=== PATIENT | male | born 1960 | race Caucasian/White ===

== ENCOUNTER 2024-03-03 17:42 | Emergency (ER) | payer OTHER, SELFPAY ==
[2024-03-03] VITALS (7 sets, daily range): BP systolic 105–167; BP diastolic 76–98; PULSE 74–85; RESP 19–21; TEMP 36.3; O2SAT 97–99; BMI 23.0
--- NOTE | 2024-03-03 17:58 | ED_ITS ---
HPI - Extremity Injury (Lower) 2 General: Chief Complaint: Extremity Injury, Lower Stated Complaint: Right hip pain Time Seen by Provider: 03/03/24 17:51 History of Present Illness: 63-year-old male patient comes in today with complaints of posterior rib pain on the right, low back pain, and right hip pain. Patient had fallen on Friday while working with his chickens. Patient had landed on a trough. Patient has had increasing pain over the last 2 to 3 days. Review of Systems 2 General: Reports: 10 or more systems reviewed and unremarkable except in HPI and below Musc: Reports: back pain Physical Exam 2 Const: COMMON NORMALS: alert HENMT: COMMON NORMALS: normocephalic HEAD & SCALP: normocephalic Neck/C-Spine: COMMON NORMALS: full ROM Chest: CHEST: Yes tenderness (Posterior right) Resp: COMMON NORMALS: normal respiratory effort and clear to auscultation bilaterally AUSCULTATION: clear to auscultation bilaterally Cardio: COMMON NORMALS: regular rate and regular rhythm RATE: regular rate RHYTHM: regular rhythm GI: COMMON NORMALS: Soft to palpation and non-tender PALPATION: Yes Soft to palpation : BLADDER/KIDNEY EXAM: Yes CVA tenderness on the right Back/Pelvis: GENERAL BACK: Yes CVA tenderness LUMBAR SPINE/LOWER BACK: Yes lumbar spinal tenderness and Yes other soft tissue findings (Bruising right paraspinous, central lower lumbar) Extremity: NARRATIVE EXTREMITY EXAM: Decreased range of motion of the right hip due to pain Neuro: SENSORIUM/ORIENTATION: Yes alert Skin: COMMON NORMALS: turgor normal GENERAL SKIN EXAM: turgor normal Course 2 Vital Signs: Vital signs: Vital Signs Temperature 97.4 F L 03/03/24 17:58 Pulse Rate 78 03/03/24 20:30 Respiratory Rate 19 H 03/03/24 18:28 Blood Pressure 161/98 03/03/24 20:30 Pulse Oximetry 99 03/03/24 20:30 Oxygen Delivery Me thod Room Air 03/03/24 20:30 MDM - Extremity Injury (Lower) Medical Decision Making 63-year-old male patient comes in today for complaints of right-sided lower back pain, right lower lumbar pain, secondary to a fall on Friday. Patient has had increasing pain and difficulty with ambulation. Patient appears nontoxic. Patient appears moderate to severe pain. Patient has increased pain with movement. Differential diagnosis includes contusion, fracture, dislocation, sprain, vertebral fracture, lumbar radiculopathy. CT of the chest abdomen and pelvis noted fractures of the 10th and 12th rib on the right side, and a fracture of the second lumbar vertebra transverse process. Reviewed exam with patient with recommendation for treatment and follow-up. Patient reported understanding and agreed to plan. Lab Data 03/03/24 18:12 03/03/24 18:12 Radiology Impressions Chest/Abdomen/Pelvis CT 03/03/24 18:01 IMPRESSION: 1. There are acute to subacute appearing fractures through the right 10th and 12th ribs with mild adjacent soft tissue edema. 2. Small hiatal hernia. There is mucosal thickening of the distal esophagus consistent with esophagitis. Follow-up to exclude neoplasm as clinically warranted. IMPRESSION: 1. There are acute to subacute appearing fractures through the right 10th and 12th ribs with mild adjacent soft tissue edema. 2. There is a nondisplaced fracture through the right L2 transverse process with mild adjacent soft tissue edema. 3. Urinary bladder wall thickening could be due to cystitis or lack of distention. 4. Mild edema is present in the subcutaneous soft tissues surrounding the right pelvis and upper thigh. Laboratory Results WBC 8.01 10^3/uL (3.29-11.43) 03/03/24 18:12 RBC 4.25 10^6/uL (3.85-5.65) 03/03/24 18:12 Hgb 16.40 g/dL (11.27-16.99) 03/03/24 18:12 Hct 44.5 % (37-53) 03/03/24 18:12 MCV 104.7 fl (82-101) H 03/03/24 18:12 MCH 38.6 pg (27-33) H 03/03/24 18:12 MCHC 36.9 g/dL (30-55) 03/03/24 18:12 RDW 11.9 % (12.1-15.1) L 03/03/24 18:12 Plt Count 150 10^3/cmm (157-399) L 03/03/24 18:12 MPV 9.8 fL (7.4-10.4) 03/03/24 18:12 Neut % (Auto) 77.8 % 03/03/24 18:12 Lymph % (Auto) 10.1 % 03/03/24 18:12 [place] % (Auto) 11.2 % 03/03/24 18:12 Eos % (Auto) 0.0 % 03/03/24 18:12 Baso % (Auto) 0.4 % 03/03/24 18:12 Neut # (Auto) 6.23 10^3/uL (1.8-7.7) 03/03/24 18:12 Lymph # (Auto) 0.8 10^3/uL (0.8-4.8) 03/03/24 18:12 [place] # (Auto) 0.9 10^3/uL (0.2-0.9) 03/03/24 18:12 Eos # (Auto) 0.0 10^3/uL (0.0-0.8) 03/03/24 18:12 Baso # (Auto) 0.0 10^3/uL (0.0-0.1) 03/03/24 18:12 Nucleated RBC % (auto) 0 % 03/03/24 18:12 Nucleated RBCs # 0.0 /100WBC 03/03/24 18:12 Sodium 136 mmol/L (136-145) 03/03/24 18:12 Potassium 3.3 mmol/L (3.5-5.1) L 03/03/24 18:12 Chloride 97 mmol/L (98-107) L 03/03/24 18:12 Carbon Dioxide 18 mmol/L (22-29) L 03/03/24 18:12 Anion Gap 24.3 (5-19) H 03/03/24 18:12 BUN 5 mg/dL (8-23) L 03/03/24 18:12 Creatinine 0.5 mg/dL (0.7-1.2) L 03/03/24 18:12 GFR Calculation 167.9 mL/min (90-130) H 03/03/24 18:12 Glucose 133 mg/dL (65-115) H 03/03/24 18:12 Calculated Osmolality 281 mOsm/kg (285-295) L 03/03/24 18:12 Calcium 9.9 mg/dL (8.5-10.5) 03/03/24 18:12 Total Bilirubin 1.4 mg/dL (0.15-1.2) H 03/03/24 18:12 AST 44 U/L (0-40) H 03/03/24 18:12 ALT 38 U/L (0-41) 03/03/24 18:12 Alkaline Phosphatase 63 U/L (40-130) 03/03/24 18:12 Total Protein 8.3 g/dL (6.6-8.7) 03/03/24 18:12 Albumin 4.4 g/dL (3.5-5.2) 03/03/24 18:12 Globulin 3.9 g/dL (1.3-4.6) 03/03/24 18:12 All radiology interpretation(s) finalized by discharge Discharge Plan Discharge Patient Disposition: Home Clinical Impression: Fall from slip, trip, or stumble Qualifiers: Encounter type: initial encounter Qualified Code(s): W01.0XXA - Fall on same level from slipping, tripping and stumbling without subsequent striking against object, initial encounter Fracture, ribs Qualifiers: Encounter type: initial encounter Fracture type: closed Laterality: right Q ualified Code(s): S22.41XA - Multiple fractures of ribs, right side, initial encounter for closed fracture Closed fracture of transverse process of lumbar vertebra Qualifiers: Encounter type: initial encounter Qualified Code(s): S32.009A - Unspecified fracture of unspecified lumbar vertebra, initial encounter for closed fracture Condition: Stable Prescriptions: New hydrocodone-acetaminophen 5-325 mg tablet 1 tab PO Q6H PRN (Reason: pain) Qty: 12 0RF Discharge Orders: Discharge ED (Routine); Ordered 03/03/24 Ordered By: Umesh Shipman Discharge Diet: Usual diet Discharge Activity: Increase activity as tolerated Patient Instructions: Opioid Safety, Pain Management Activity Restrictions/Additional Instructions: Activity as tolerated. Use acetaminophen and ibuprofen to help control pain. Use ice and heat for further pain relief. Use hydrocodone for severe pain. Follow-up with primary care in 3 to 5 days for recheck. Return to ED for new concerns such as high fever, or increased shortness of breath. Coding Level of Care Code ED [employer] Member for Daniel Rubi
--- NOTE | 2024-03-03 18:01 | CTR_ITS ---
PROCEDURE INFORMATION: Exam: CT Chest With Contrast; Diagnostic Exam date and time: 03/03/2024 7:08 PM Age: 63 years old Clinical indication: Patient HX: Right hip pain, ; additional info: Fall injury x2days, posterior bruising, no prior imaging TECHNIQUE: Imaging protocol: Diagnostic computed tomography of the chest with contrast. Radiation optimization: All CT scans at this facility use at least one of these dose optimization techniques: automated exposure control; mA and/or kV adjustment per patient size (includes targeted exams where dose is matched to clinical indication); or iterative reconstruction. Contrast material: OMNI 350; Contrast volume: 100 ml; Contrast route: INTRAVENOUS (IV); COMPARISON: No relevant prior studies available. RADIATION DOSE METRICS: Total DLP (mGy-cm): 228 FINDINGS: Lungs: Unremarkable. No consolidation. No masses. Pleural spaces: Unremarkable. No pneumothorax. No pleural effusion. Heart: Unremarkable. No cardiomegaly. No pericardial effusion. Lymph nodes: Unremarkable. No enlarged lymph nodes. Vasculature: Unremarkable. No aortic aneurysm. Diaphragm: Small hiatal hernia. There is mucosal thickening of the distal esophagus. Bones/joints: There is an acute to subacute appearing nondisplaced fracture of the lateral aspect of the right 10th rib with mild adjacent soft tissue edema. Acute to subacute appearing mildly displaced fracture through the posterior right 12th rib with mild adjacent soft tissue edema. Old/healed fractures through the lateral aspects of the right 6th and 7th ribs. Minimal chronic appearing anterior compression deformity of the T2 superior endplate. Soft tissues: See Bones/joints finding. PROCEDURE INFORMATION: Exam: CT Abdomen And Pelvis With Contrast Exam date and time: 03/03/2024 7:08 PM Age: 63 years old Clinical indication: Patient HX: Right hip pain, ; additional info: Fall injury x2days, posterior bruising, no prior imaging TECHNIQUE: Imaging protocol: Computed tomography of the abdomen and pelvis with contrast. Radiation optimization: All CT scans at this facility use at least one of these dose optimization techniques: automated exposure control; mA and/or kV adjustment per patient size (includes targeted exams where dose is matched to clinical indication); or iterative reconstruction. Contrast material: OMNI 350; Contrast volume: 100 ml; Contrast route: INTRAVENOUS (IV); COMPARISON: No relevant prior studies available. RADIATION DOSE METRICS: Total DLP (mGy-cm): 277 FINDINGS: Liver: Normal. No mass. Gallbladder and biliary ducts: Normal. No calcified stones. No ductal dilation. Pancreas: Normal. No ductal dilation. Spleen: Normal. No splenomegaly. Adrenal glands: Normal. No mass. Kidneys and ureters: Normal. No hydronephrosis. Stomach and bowel: Unremarkable. No obstruction. No mucosal thickening. Appendix: No evidence of appendicitis. Intraperitoneal space: Unremarkable. No free air. No significant fluid collection. Vasculature: Unremarkable. No abdominal aortic aneurysm. Lymph nodes: Unremarkable. No enlarged lymph nodes. Urinary bladder: Urinary bladder wall thickening could be due to cystitis or lack of distention. Reproductive: There are calcifications in the prostate gland.Prostate gland indents the base of the bladder consistent with median lobe enlargement. Bones/joints: There is an acute to subacute appearing nondisplaced fracture of the lateral aspect of the right 10th rib with mild adjacent soft tissue edema. Acute to subacute appearing mildly displaced fracture through the posterior right 12th rib with mild adjacent soft tissue edema. There is a nondisplaced acute fracture through the right L2 transverse process with mild adjacent soft tissue edema. Soft tissues: There is mild edema in the subcutaneous soft tissues surrounding the right pelvis and upper thigh. CT/CT chest abdpel w/*[id number] IMPRESSION: 1. There are acute to subacute appearing fractures through the right 10th and 12th ribs with mild adjacent soft tissue edema. 2. Small hiatal hernia. There is mucosal thickening of the distal esophagus consistent with esophagitis. Follow-up to exclude neoplasm as clinically warranted. IMPRESSION: 1. There are acute to subacute appearing fractures through the right 10th and 12th ribs with mild adjacent soft tissue edema. 2. There is a nondisplaced fracture through the right L2 transverse process with mild adjacent soft tissue edema. 3. Urinary bladder wall thickening could be due to cystitis or lack of distention. 4. Mild edema is present in the subcutaneous soft tissues surrounding the right pelvis and upper thigh.
[2024-03-03] MEDS: ondansetron 2 mg/ML SDV 2 mL 4 MG IVP (18:19)
[2024-03-03 18:20] LABS: Basophils % 0.4 %; Hematocrit 44.5 % (37-53); Lymphocytes # 0.8 10^3/uL (0.8-4.8); Lymphocytes % 10.1 %; Mean Corpuscular HGB Conc 36.9 g/dL (30-55); Mean Corpuscular Hemoglobin 38.6 pg (27-33); Mean Corpuscular Volume 104.7 fl (82-101); Mean Platelet Volume 9.8 fL (7.4-10.4); Monocytes # 0.9 10^3/uL (0.2-0.9); Monocytes % 11.2 %; Neutrophils # 6.23 10^3/uL (1.8-7.7); Neutrophils % 77.8 %; Nucleated Red Blood Cells % 0 %; Platelet Count 150 10^3/cmm (157-399); Red Blood Count 4.25 10^6/uL (3.85-5.65); Red Cell Distribution Width 11.9 % (12.1-15.1); White Blood Count 8.01 10^3/uL (3.29-11.43)
[2024-03-03] MEDS: morphine 4 mg/mL SDV 1 mL IVP (18:21)
[2024-03-03 18:35] LABS: Alanine Aminotransferase 38 U/L (0-41); Albumin Level 4.4 g/dL (3.5-5.2); Alkaline Phosphatase 63 U/L (40-130); Blood Urea Nitrogen 5 mg/dL (8-23); Calcium 9.9 mg/dL (8.5-10.5); Carbon Dioxide 18 mmol/L (22-29); Chloride 97 mmol/L (98-107); Creatinine Clr Calc Pharmacy 123.4712; Globulin 3.9 g/dL (1.3-4.6); Glomerular Filtration Rate 167.9 mL/min (90-130); Glucose 133 mg/dL (65-115); Osmolality Calculated 281 mOsm/kg (285-295); Sodium 136 mmol/L (136-145); Total Bilirubin 1.4 mg/dL (0.15-1.2); Total Protein 8.3 g/dL (6.6-8.7)
[2024-03-03 18:39] LABS: Anion Gap 24.3 (5-19); Aspartate Amino Transferase 44 U/L (0-40); Potassium 3.3 mmol/L (3.5-5.1)
[2024-03-03] MEDS: iohexol 350 mg/mL 500 mL Btl (per mL) IV (19:18)
[2024-03-03] MEDS: lactated ringers 1,000 ML 999 ML IV (19:24)
[2024-03-03] MEDS: HYDROcodone-acetaminophen 5-325 mg Tablet 2 TAB PO (21:13)
== END 2024-03-03 21:28 | disposition home or self-care (01) ==
PROVIDERS: Emergency Provider Nurse Practitioner Family
DX: S22.41XA Multiple fractures of ribs, right side, initial encounter for closed fracture (principal); S32.029A Unspecified fracture of second lumbar vertebra, initial encounter for closed fracture; W18.39XA Other fall on same level, initial encounter
CPT/HCPCS: 36415; 71260; 74177; 80053; 85025; 96361; 96374; 96375; 99285; J2270; J2405; J7120; Q9967

== ENCOUNTER 2024-04-09 08:46 | Outpatient (CLI) | payer OTHER, SELFPAY ==
--- NOTE | 2024-04-09 08:48 | FL_ITS ---
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 The swallowing of barium was monitored with fluoroscopy and recorded with multiple rapid sequence spo t films. In the examination of the cervical esophagus there was silent aspiration with the second swallow in t he AP projection. One swallow was allowed in the upright lateral position. Again there was a small am ount of silent aspiration. The patient was placed in the prone MERLOS position and 1 swallow allowed. No further aspiration was not ed. A second swallow was allowed. And a small amount of aspiration again noted. The procedure was termina sonia at this point. There is a constriction of the cervical esophagus at the C6 level which appears to be hypertrophy of the cricopharyngeus muscle. During the swallow of the short segment of the esophagus demonstrated dil atation prior to distal passage of the barium. The folds in the There appear to be prominent folds in the valleculae and piriform sinuses. The limited examination of the thoracic esophagus demonstrated mild dysmotility with somewhat decreas ed primary peristaltic wave. No tertiary contractions were identified. There was a small hiatal hernia. FL/FL barium swallow [id number] IMPRESSION: Silent abscess progression which limited the number of swallows and volume of b arium administered. Significant cricopharyngeus hypertrophy/spasm of the cervical esophagus. Possible edema in the valleculae and piriform sinuses. Minimal dysmotility in the thoracic esophagus.
--- NOTE | 2024-04-09 08:56 | MR_ITS ---
WS: [id number] MRI NECK WITH CONTRAST TECHNIQUE: Noncontrast axial T1, axial T2 FSE fat sat, coronal T2 fat sat, coronal T1, coronal T1 fat sat, sagittal T2 fat sat, plus contrast enhanced coronal, sagittal, and axial T1 fat sat images obta ined. CLINICAL INFORMATION: NEOPLASM OF UNCERTAIN BEHAVIOR OF [place]NX COMPARISON: None. FINDINGS: Some images are limited by patient motion and respiratory artifact. Large heterogeneously enhancing soft tissue mass involving the supraglottic larynx centered at the le blane of C5. Enhancing mass measures approximately 2.3 x 3.5 x 2.5 cm. This extends cranially to the C3 level eccentric to the RIGHT with diffuse thickening and involvement of the posterior pharyngeal wal l. Associated retropharyngeal fluid. Near complete effacement of the supraglottic larynx at the C5-6 level. This extends into the parapharyngeal soft tissue laterally. Complete effacement of the pirifor m sinuses with involvement of the aryepiglottic folds. This slightly abuts the RIGHT lateral aspect o f the vallecula. Extension to the adjacent cervical soft tissues with loss of the normal fat plane busby bmandibular space. Enhancing mass involves the thyroid cartilage and posterior pharyngeal wall. Glottis is patent. Subg lottic airway appears patent. Parotid glands are normal. Submandibular glands appear normal. Few prom inent enhancing level 2 and level 3 cervical lymph nodes. Recommend PET CT for staging. Involvement of the prevertebral soft tissues with loss of the normal fat plane. Presumed involvement of the prevertebral fascia. Bone marrow signal in the cervical spine appears normal. Spinal canal appears patent. A few tiny film touch up inspector eryn lacunar infarcts in the cerebellum. Small vessel changes in the timi. Paranasal sinuses and masto id air cells appear well aerated. MR/MR orbit face neck wo/w* [id number] IMPRESSION: Exam is limited due to respiratory artifact and patient motion. 1. 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 2. This extends to the level of the epiglottis and slightly abuts the RIGHT va llecula. Associated involvement of the thyroid cartilage and hyoid. Involvement of the RIGHT submandibular space. 3. Diffuse involvement of the posterior pharyngeal wall and retropharyngeal sp joss. Loss of the normal fat plane in the prevertebral space with presumed invol vement of the prevertebral fascia. Bone marrow signal in the cervical spine michael ears normal. 4. Severe narrowing of the supraglottic larynx at the level of the mass. 5. There are a few slightly prominent enhancing level 2 and level 3 cervical l ymph nodes. Images limited by motion. Recommend PET/CT for further staging.
[2024-04-09] MEDS: gadobenate dimeglumine 20 mL vial 10 ML IV (11:10)
== END 2024-04-09 08:47 | disposition home or self-care (01) ==
PROVIDERS: Visit Provider Otolaryngology
DX: D38.0 Neoplasm of uncertain behavior of larynx (principal)
CPT/HCPCS: 70543; 74220; A9577

== ENCOUNTER 2024-04-13 12:39 | Inpatient (IN) | payer OTHER, SELFPAY ==
[2024-04-13] VITALS (26 sets, daily range): BP systolic 106–155; BP diastolic 73–108; PULSE 66–86; RESP 12–21; TEMP 36.4–37.2; O2SAT 94–100; BMI 18.9
[2024-04-13] MEDS: sodium chloride 0.9% 1,000 ML 30 ML IV (08:29)
--- NOTE | 2024-04-13 09:03 | P.ANESASSM_ITS ---
Pre-Anesthetic Assessment Height/Weight: Height 1.6 m Weight 48.534 kg O2 Del Method Room Air 04/13/24 08:17 Operation Date: 04/13/24 10:10 Proposed Procedures p Tracheostomy(Not Applicable) - Rod Batres MD s Direct Laryngoscopy Direct Microdirect Larynoscopy with biopsy and possible esophagoscopy(Not Applicable) - Rod Batres MD Familial anesthetic complications: None Was Beta Liz taken within 24 hours: N/A Was Clonidine taken within 24 hours: N/A Last intake: Intake Last Liquid Date 04/12/24 Last Liquid Time 00:00 Last Solid Date 04/06/24 Last Solid Time 00:00 Social Tobacco 3-4 beers a night Exam alert, oriented x 3, clear to auscultation bilaterally and regular rate & rhythm Airway Comments: Comments: advanced airway mass Anesthetic Plan ASA status: 4 Anesthesia: General Other: Awake trach then general anesthesia Risk of > 500 ml blood loss (7ml/kg in children): No Medications/Allergies Home Medications Medication Instructions Recorded Confirmed Last Taken Type hydrocodone 5 mg-acetaminophen 325 1 tab PO Q6H PRN pain #12 tabs 03/03/24 04/13/24 03/14/24 Rx mg tablet Allergies Allergy/AdvReac Type Severity Reaction Status Date / Time Penicillins Allergy ADR-Gastrointestinal Verified 03/03/24 18:02 Upset Current Medications Generic Name Dose Route Start Last Admin Trade Name Freq PRN Reason Stop Dose Admin Sodium Chloride 1,000 mls @ 30 mls/hr 04/13/24 08:15 04/13/24 08:29 Sodium Chloride 0.9% IV 30 mls/hr .Q24H [place] Administration Data Anesthesia 04/13/24 08:30 Cardiac Studies: 2 No Data to Display
[2024-04-13 09:05] LABS: Anion Gap 21.4 (5-19); Blood Urea Nitrogen 6 mg/dL (8-23); Calcium 10.5 mg/dL (8.5-10.5); Carbon Dioxide 25 mmol/L (22-29); Chloride 88 mmol/L (98-107); Creatinine Clr Calc Pharmacy 94.2147; Glomerular Filtration Rate 135.6 mL/min (90-130); Glucose 91 mg/dL (65-115); Osmolality Calculated 269 mOsm/kg (285-295); Potassium 3.4 mmol/L (3.5-5.1); Sodium 131 mmol/L (136-145)
--- NOTE | 2024-04-13 09:07 | P.CONIM_ITS ---
Providers/Reason For Consult 2 Consulting Physician/Specialty*: Dr. Silver Palomino, DO/General Surgery Reason for Consult*: Neck mass and dysphagia Attending Physician: Rod Batres MD History of Present Illness History of Present Illness Ricardo Suazo is a 64 year old male who is currently in the hospital getting a tracheostomy tube by ENT. He has an enlarging neck mass that has been causing progressive dysphagia for the past month. He reports that he is lost 12-1/2 pounds unintentionally over that month. He reports difficulty swallowing even pudding or thin liquids. He reports that he gets a lot of phlegm. He denies any pain, nausea, emesis, diarrhea, constipation, hematochezia and/or melena. General surgery was consulted for percutaneous endoscopic gastrostomy tube placement. Review of Systems 2 General: Reports: 10 or more systems reviewed and unremarkable except in HPI and below Medications/Allergies Home Medications Medication Instructions Recorded Confirmed Last Taken Type hydrocodone 5 mg-acetaminophen 325 1 tab PO Q6H PRN pain #12 tabs 03/03/24 04/13/24 03/14/24 Rx mg tablet Allergies Allergy/AdvReac Type Severity Reaction Status Date / Time Penicillins Allergy ADR-Gastrointestinal Verified 03/03/24 18:02 Upset Current Medications Generic Name Dose Route Start Last Admin Trade Name Freq PRN Reason Stop Dose Admin Sodium Chloride 1,000 mls @ 30 mls/hr 04/13/24 08:15 04/13/24 08:29 Sodium Chloride 0.9% IV 30 mls/hr .Q24H [place] Administration Vitals/I&O/Wt Last Vital Signs O2 Del Method Room Air 04/13/24 08:17 Weight last 48 hrs Weight 107 lb Physical Exam 2 Narrative: General : Patient is well developed , no acute distress, oriented x3 Head : Normal cephalic, a-traumatic. Ears : Pinnae and external canal are normal. Hearing is normal. Eyes : PERRLA, Sclera and injection are normal. No conjunctival discharge. Nose : Mucous membranes are without erythema. Throat : buccal mucosa is normal, gums are without significant recession or hypertrophy. Lungs : Equal chest rise bilaterally, no use of accessory muscles, trachea is midline. Cor : Rate and rhythm are normal. Abdomen : Soft, ND, NT, no g/r/m Extremities : No edema, no cyanosis or clubbing, dorsalis pedis pulses are present bilaterally, non-tender to palpation of calves. Upper extremities are normal bilaterally. Back : non-tender to palpation, no CVA tenderness. Neuro : CN II - XII intact, Upper and lower extremities have equal and full strength Data 04/13/24 08:30 A&P Assessment and plan (1) Neck mass: (2) Dysphagia: Plan Percutaneous endoscopic gastrostomy tube placement The risks and benefits of the procedure, including bleeding, infection, intestinal perforation requiring surgery, missed lesion were explained to the patient. The patient is understanding of the risks and wishes to proceed. Patient will be admitted to ENT following the procedure Coding Level of Care Code 09811 Diagnoses Neck mass R22.1 Dysphagia R13.10
--- NOTE | 2024-04-13 10:04 | W.PM.OPSUD ---
Surgery/Procedure H&P Update DATE OF PROCEDURE: April 13, 2024 DATE H&P PERFORMED: 04/12/24 PRIMARY INDICATION FOR PROCEDURE: Hypopharyngeal mass Threatened airway PLANNED PROCEDURE: Operation Date: 04/13/24 10:10 Proposed Procedures p Tracheostomy(Not Applicable) - Rod Batres MD s Direct Laryngoscopy Direct Microdirect Larynoscopy with biopsy and possible esophagoscopy(Not Applicable) - Rod Batres MD
[2024-04-13] MEDS: thrombin 5,000 unit SDV 5000 UNIT XX (11:06)
[2024-04-13] MEDS: lidocaine-epi 1% 20 mL INJ INJECTION (11:13)
[2024-04-13] MEDS: lidocaine 2% INJ 20 mL INJECTION (11:15)
[2024-04-13] MEDS: fluorescein 1 mg Strip XX (11:21)
[2024-04-13] MEDS: EPINEPHrine 1 mg/mL INJ XX (11:21)
--- NOTE | 2024-04-13 12:03 | P.OP_ITS ---
Operative Report Date of procedure: April 13, 2024 Pre-op diagnosis: Hypopharyngeal mass Post-op diagnosis: same Procedure done: Percutaneous endoscopic gastrostomy tube placement Implants: 20 [place] PEG tube Specimens removed/disposition: None Surgeon: Silver Palomino DO Anesthesia: General Estimated blood loss (mL): 5 Complications: None apparent Brief History: This is a very pleasant 64-year-old gentleman with a large hypopharyngeal mass causing dysphagia. Patient has even difficulty swallowing thin liquids. Percutaneous endoscopic gastrostomy tube with placement was indicated. The risk and benefits were explained and documented. Procedure: Prior to my prior the procedure, Dr. Avery placed a tracheostomy tube. A timeout was performed. All present were in agreement. The endoscope was then advanced into the mouth and esophagus was cannulated with great difficulty. This about 5 cc of blood loss during this process. The scope was then advanced past the mass, down the esophagus and into the stomach. The lighted anoscope was easily showing through the body of the stomach and anterior abdominal wall. 2% lidocaine with epinephrine was used to anesthetize the skin at this area. An 11 blade scalpel was then used to make a 7 mm incision. Cannulation needle was then placed through the skin and into the stomach. A wire was passed into the stomach and lassoed with the endoscope. The wire was then pulled out through the mouth. The 20 [place] percutaneous endoscopic gastrostomy tube was attached to the wire and pulled back through the mouth and out of the anterior abdominal wall. The button was then placed and tightened down. The tube was cut to appropriate length. Patient tolerated procedure well.
--- NOTE | 2024-04-13 12:21 | P.OP_ITS ---
Operative Report Date of procedure: April 13, 2024 Pre-op diagnosis: Hypopharyngeal mass Post-op diagnosis: Hypopharyngeal mass Threatened airway Post-op findings: Same Procedure done: Tracheotomy Microdirect laryngoscopy with biopsies Implants: None Specimens removed/disposition: Hypopharyngeal mass Pathology: Hypopharyngeal mass Surgeon: Rod Batres Surgeon: Rod Batres MD Keel Press Operator: Pancho Brady Anesthesia: MAC and General Estimated blood loss (mL): 5 IV fluids (mL): 1,100 Complications: None Findings: - Large, exophytic mass extending from the right pyriform sinus around the posterior hypopharyngeal wall to the left lateral hypopharynx - Vallecula, epiglottis, and vocal cords normal - O/W normal exam Brief History: 64 yo wm with a 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 Procedure: The patient was identified in the preop holding area and was taken to the operating room where he was placed on the operating table in the supine position. An incision was marked out over the trachea in the anterior midline suprasternal notch area. The incision was then injected with local anesthesia and the patient was then prepped and draped in the usual sterile fashion. A vertical incision was made over the trachea in the suprasternal notch area with 15 blade. This incision was carried down through the subcutaneous tissues with electrocautery and blunt dissection. The thyroid isthmus was encountered in the midline after retracting the soft tissues laterally. The thyroid isthmus was dissected off of the trachea and was divided with the harmonic scalpel. At this point 2 cc of 2% plain lidocaine were injected into the trachea and a tracheotomy hook was placed under the cricoid cartilage and was used to retract the airway superiorly. The cartilage of the third tracheal ring was removed with an 11 blade and an Allis clamp. The newly created tracheotomy was then dilated and a #8 cuffed trach tube was then introduced into the airway through this newly created tracheotomy. Once its proper position was assured the trach tube was sutured in place and secured with a neck strap. Gelfoam soaked in thrombin was placed around the trach tube in the wound. At this point the table was turned 90 degrees to the patient's left and he was reprepped and draped in the usual sterile fashion. A surgical laryngoscope was advanced down the right oral cavity gutter under direct vision until the posterior hypoharyngeal mass came into view. A systematic inspection was then carried out of the mass which centered on the right piriform sinus and then extended along the posterior wall of the hypopharynx over to the area just posterior to the left piriform sinus. The base of tongue, vallecula, epiglottis, aryepiglottic folds, false and true vocal cords all appeared to be normal. Biopsies were taken of the mass with cup forceps and hemostasis was achieved with topical epinephrine. Once this was accomplished my portion of the procedure was terminated and control of the patient was turned over to Dr. Palomino who performed a percutaneous endoscopic gastrostomy (please see his note for details of this procedure). Once this was completed the procedure was terminated and control the patient was returned to anesthesia where he underwent an uneventful reversal of anesthesia and was taken to the intensive care unit in stable condition. There were no operative or anesthetic complications.
--- NOTE | 2024-04-13 12:46 | PC.NURSE ---
Arrived from OR approximately 1220
[2024-04-13] MEDS: lactated ringers 1,000 ML 125 ML IV ×2 (13:09→21:42)
[2024-04-13] MEDS: famotidine 20 mg/2 mL INJ IVP (13:09)
--- NOTE | 2024-04-13 13:20 | ANE.PACU2 ---
Inpatient post-anesthesia follow up: Vital signs: Temperature Pulse Rate Respiratory Rate Blood Pressure Pulse Oximetry Oxygen Delivery Me thod Room Air Oxygen Flow Rate Fraction of Inspir ed Oxygen
--- NOTE | 2024-04-13 17:30 | P.HP_ITS ---
Providers/Chief Complaint 2 Admitting Physician: Rod Batres MD Chief Complaint: D38.0 History of Present Illness Ricardo Suazo is a 64 year old male with a h/o throat pain and dysphagia who was noted to have a hypopharyngeal mass and a threatened airway. The patient desires surgical therapy. Review of Systems 2 General: Reports: 10 or more systems reviewed and unremarkable except in HPI and below Medications/Allergies Home Medications Medication Instructions Recorded Confirmed Last Taken Type hydrocodone 5 mg-acetaminophen 325 1 tab PO Q6H PRN pain #12 tabs 03/03/24 04/13/24 03/14/24 Rx mg tablet Allergies Allergy/AdvReac Type Severity Reaction Status Date / Time Penicillins Allergy ADR-Gastrointestinal Verified 03/03/24 18:02 Upset Vitals/I&O/Wt Last Vital Signs Temp 97.6 F 04/13/24 12:45 Pulse 73 04/13/24 15:28 Resp 16 04/13/24 15:28 BP 152/108 04/13/24 13:25 Pulse Ox 100 04/13/24 15:28 O2 Del Method HAG 04/13/24 15:28 O2 Flow Rate 6 04/13/24 15:28 FiO2 28 04/13/24 15:28 04/13/24 04/13/24 04/13/24 06:59 14:59 22:59 Intake Total 1000 / 1000 Balance 1000 / 1000 Weight last 48 hrs Weight 49.442 kg Weight 48.534 kg Physical Exam 2 Const: COMMON NORMALS: no acute distress, average body habitus and patient oriented x3 ORIENTATION/CONSCIOUSNESS: Yes awake, Yes oriented to person and Yes oriented to place HENMT: COMMON NORMALS: normocephalic and atraumatic HEAD & SCALP: normal to inspection and normocephalic FACE & SINUS: normal facial exam and face symmetric NOSE: Normal external nose present and Normal nares present M OUTH: Normal oral and palatal mucosa present, lip normal and tongue normal T HROAT: posterior oropharynx normal Eye: COMMON NORMALS: Equal, round and reactive pupils present, EOMs intact bilaterally and conjunctivae normal Neck/C-Spine: COMMON NORMALS: full ROM, no lymphadenopathy, supple and Thyroid normal Lymph: LYMPHATIC: no lymphadenopathy noted Chest: COMMONS NORMALS: normal inspection of the chest Resp: COMMON NORMALS: normal respiratory effort, No retractions, No use of accessory muscles and clear to auscultation bilaterally Cardio: COMMON NORMALS: regular rate, regular rhythm and No murmurs present (Cardio) GI: COMMON NORMALS: Normal to inspection, nondistended, normoactive bowel sounds present Extremity: COMMON NORMALS: normal to inspection Neuro: COMMON NORMALS: patient oriented x3, CN's II-XII intact bilaterally, moves all extremities and no focal motor deficits Data 04/13/24 08:30 A&P Assessment and plan (1) Dysphagia: (2) Neck mass: Impression: Suspicious hypopharyngeal mass with threatened airway Plan: - Admit - Tracheotomy - Direct Laryngoscopy with biopsy - Possible esophagoscopy with biopsy Attestations 2 Medical Necessity Statement*: The patient requires stabilization of his airway and diagnostic biopsy. Coding Level of Care Code Acute Code for Chg Fwd Diagnoses Dysphagia R13.10 Neck mass R22.1
--- NOTE | 2024-04-13 17:36 | P.PN_ITS ---
Subjective 2 Subjective: 64 yo wm who is night of surgery s/p tra cheotomy, Direct laryngoscopy with biopsy, and PEG tube placement. The patient is without c/o. Medications: Reviewed: Yes Vitals/I&O/Wt Last Vital Signs Temp 97.6 F 04/13/24 12:45 Pulse 73 04/13/24 15:28 Resp 16 04/13/24 15:28 BP 152/108 04/13/24 13:25 Pulse Ox 100 04/13/24 15:28 O2 Del Method HAG 04/13/24 15:28 O2 Flow Rate 6 04/13/24 15:28 FiO2 28 04/13/24 15:28 04/13/24 04/13/24 04/13/24 06:59 14:59 22:59 Intake Total 1000 / 1000 Balance 1000 / 1000 Weight last 48 hrs Weight 49.442 kg Weight 48.534 kg Physical Exam 2 Const: COMMON NORMALS: no acute distress, patient oriented x3 and alert HENMT: COMMON NORMALS: normocephalic and atraumatic HEAD & SCALP: n ormocephalic and atraumatic FACE & SINUS: normal facial exam MOUTH: Normal oral and palatal mucosa present Neck/C-Spine: COMMON NORMALS: full ROM and no lymphadenopathy GENERAL: Yes trachea midline and Yes tracheostomy present Chest: COMMONS NORMALS: normal inspection of the chest Resp: COMMON NORMALS: normal respiratory effort, No retractions, No use of accessory muscles and clear to auscultation bilaterally AUSCULTATION: clear to auscultation bilaterally Cardio: COMMON NORMALS: regular rate and regular rhythm RATE: regular rate RHYTHM: regular rhythm Neuro: COMMON NORMALS: patient oriented x3 SENSORIUM/ORIENTATION: Yes alert Data 04/13/24 08:30 A&P Assessment and plan (1) Neck mass: Impression: Hypopharyngeal mass with threatened airway doing well s/p tracheotomy, direct laryngoscopy with biopsy, and PEG tube placement Plan: - Routine trach care - Begin tube feeds when cleared by Dr. Palomino - Nutrition consult - First trach change in 5-7 days - Discharge planning (2) Dysphagia: Attestations 2 Medical Necessity Statement*: The patient requires inpatient care until airway stable. Coding Level of Care Code Acute Code for Chg Fwd Diagnoses Neck mass R22.1 Dysphagia R13.10
--- NOTE | 2024-04-13 17:41 | XRR_ITS ---
PROCEDURE INFORMATION: Exam: XR Chest Exam date and time: 04/13/2024 6:00 PM Age: 64 years old Clinical indication: Device placement; Tracheostomy placement or adjustment; Additional info: S/P tracheotomy TECHNIQUE: Imaging protocol: Radiologic exam of the chest. Views: 1 view. COMPARISON: CT chest abdpel w/*[id number] 03/03/2024 7:08 PM FINDINGS: Tubes, catheters and devices: Tracheostomy tube tip terminates approximately 3 cm above the misha. Lungs: The lungs are adequately expanded. No focal consolidations or pulmonary edema. Pleural spaces: No pleural effusions or pneumothorax. Heart/Mediastinum: No cardiomegaly. Bones/joints: No acute fractures. XR/XR chest 1V portable [id number] IMPRESSION: Tracheostomy tube tip terminates approximately 3 cm above the misha. No acute pulmonary disease.
--- NOTE | 2024-04-13 22:42 | PC.NURSE ---
Patient with orders for TPN and tube feeding. Contacted Dr. Batres and clarified, patient to be NPO except ice chips with tube feedings at 25 ml/hr and 60 ml water flushes TID. Tube feeding started at 2130 and diet updated to reflect same.
[2024-04-14] VITALS (25 sets, daily range): BP systolic 119–146; BP diastolic 64–95; PULSE 69–100; RESP 16–24; TEMP 36.8–37.4; O2SAT 88–100
[2024-04-14] MEDS: famotidine 20 mg/2 mL INJ IVP ×2 (00:05→11:29)
--- NOTE | 2024-04-14 01:14 | PC.NURSE ---
Tube feeding stopped at this time.
[2024-04-14] MEDS: morphine 4 mg/mL SDV 1 mL 2 MG IVP ×3 (03:41→17:06)
--- NOTE | 2024-04-14 05:20 | P.PN_ITS ---
Subjective 2 Subjective: 64 yo wm who is POD #1 s/p tracheotomy w ith Direct Laryngoscopy and PEG tube placement who is doing well. The patient is without c/o. Vitals/I&O/Wt Last Vital Signs Temp 98.3 F 04/14/24 05:15 Pulse 72 04/13/24 23:00 Resp 22 H 04/14/24 03:41 BP 126/74 04/13/24 23:00 Pulse Ox 100 04/14/24 03:41 O2 Del Method HAG 04/13/24 17:54 O2 Flow Rate 6 04/13/24 17:54 FiO2 28 04/13/24 15:28 04/13/24 04/13/24 04/14/24 14:59 22:59 06:59 Intake Total 1000 / 1000 1000 / 2000 0 / 2000 Output Total 1300 / 1300 Balance 1000 / 1000 -300 / 700 0 / 700 Weight last 48 hrs Weight 49.442 kg Weight 48.534 kg Physical Exam 2 Const: COMMON NORMALS: no acute distress HENMT: COMMON NORMALS: normocephalic, atraumatic and Normal external nose present HEAD & SCALP: normocephalic and atraumatic NOSE: Normal external nose present Eye: COMMON NORMALS: Equal, round and reactive pupils present and EOMs intact bilaterally PUPIL: Yes Equal, round and reactive pupils present Neck/C-Spine: COMMON NORMALS: full ROM and no lymphadenopathy GENERAL: Yes tracheostomy present Lymph: LYMPHATIC: no lymphadenopathy noted Chest: COMMONS NORMALS: normal inspection of the chest Resp: COMMON NORMALS: normal respiratory effort, No retractions, No use of accessory muscles and clear to auscultation bilaterally AUSCULTATION: clear to auscultation bilaterally Cardio: COMMON NORMALS: regular rate, regular rhythm and No murmurs present (Cardio) RATE: regular rate RHYTHM: regular rhythm GI: COMMON NORMALS: Normal to inspection, nondistended, normoactive bowel sounds present INSPECTION: Yes other (PEG in place) Data 04/13/24 08:30 CXR: My impression: Trach in good position; o/w normal. A&P Assessment and plan (1) Neck mass: Impression: 64 yo wm who is POD #1 s/p tracheotomy, DL, and PEG tube placement for a large hypopharyngeal mass who is doing well Plan: - Will begin tube feeds when cleared by Dr. Palomino - I will change the trach tube on POD 5-7 - Continue trach care - D/C planning - Will refer the patient for Radiation/Heme Oncology consults after d/c; the patient's tumor appears to be non resectable (it abuts the spine) (2) Dysphagia: Attestations 2 Medical Necessity Statement*: The patient requires inpatient care until trach stable and d/c planning is complete Coding Level of Care Code Acute Code for Chg Fwd Diagnoses Neck mass R22.1 Dysphagia R13.10
[2024-04-14] MEDS: lactated ringers 1,000 ML 125 ML IV ×2 (06:03→17:06)
[2024-04-14 06:15] LABS: Basophils % 0.2 %; Hematocrit 40.8 % (37-53); Lymphocytes # 1.2 10^3/uL (0.8-4.8); Mean Corpuscular HGB Conc 36.3 g/dL (30-55); Mean Corpuscular Hemoglobin 37.3 pg (27-33); Mean Corpuscular Volume 102.8 fl (82-101); Monocytes # 2.1 10^3/uL (0.2-0.9); Monocytes % 10.7 %; Neutrophils # 16.03 10^3/uL (1.8-7.7); Neutrophils % 82.5 %; Nucleated Red Blood Cells % 0 %; Platelet Count 200 10^3/cmm (157-399); Red Blood Count 3.97 10^6/uL (3.85-5.65); Red Cell Distribution Width 10.9 % (12.1-15.1); White Blood Count 19.42 10^3/uL (3.29-11.43)
[2024-04-14 06:22] LABS: Alanine Aminotransferase 24 U/L (0-41); Albumin Level 3.6 g/dL (3.5-5.2); Alkaline Phosphatase 58 U/L (40-130); Anion Gap 16.7 (5-19); Aspartate Amino Transferase 19 U/L (0-40); Blood Urea Nitrogen 7 mg/dL (8-23); Calcium 9.5 mg/dL (8.5-10.5); Carbon Dioxide 26 mmol/L (22-29); Chloride 97 mmol/L (98-107); Creatinine Clr Calc Pharmacy 114.2837; Globulin 3.4 g/dL (1.3-4.6); Glomerular Filtration Rate 167.4 mL/min (90-130); Glucose 135 mg/dL (65-115); Osmolality Calculated 282 mOsm/kg (285-295); Potassium 3.7 mmol/L (3.5-5.1); Sodium 136 mmol/L (136-145); Total Bilirubin 0.9 mg/dL (0.15-1.2)
[2024-04-14 06:24] LABS: Charge for UA Resulting for Rev
[2024-04-14 06:28] LABS: Bilirubin Urine Negative (Negative); Blood Urine Negative (Negative); Glucose Urine UA Negative (Normal); Ketones Urine 2+ (Negative); Leukocyte Esterase Urine Negative (Negative); Nitrate Urine Negative (Negative); Protein Urine Negative (Negative); Specific Gravity, Urine 1.011 (1.005-1.030); Urine Appearance Clear (CLEAR); Urine Color Yellow (Yellow); pH Urine 6.5 (5-7)
[2024-04-14 06:32] LABS: Bacteria Urine None Seen /hpf; Hyaline Casts Urine 0.81 /lpf; RBC Urine 0-2 /hpf (0-2); Squamous Epithelial Cell Urine 0-5 /hpf (0-5); WBC Urine 0-5 /hpf (0-5)
--- NOTE | 2024-04-14 09:41 | PC.NUTR ---
Addendum entered and electronically signed by Santy Matos 04/15/24 13:57: Switch to bolus feeds following RD recs below using Jevity 1.5: -360 ml @ 0900 -240 ml @ 1200 -360 ml @ 1600 FWF: 75ml TID Original Note: initiate tube feeding regimen once medically appropriate -Jevity 1.5 starting at 20 ml/hr -Advance 10 ml/hr q8 until goal of 40 ml/hr x24hrs is reached -FWF: 100 ml q4 See most recent RD note for details
[2024-04-14 12:30] LABS: Magnesium 1.4 mg/dL (1.7-2.3); Phosphorus 2.1 mg/dL (2.5-4.5)
[2024-04-14] MEDS: magnesium sulfate premix 4 GM/100 ML PREMIX IV (13:31)
[2024-04-14] MEDS: potassium phosphate (mEq K) 40 MEQ in sodium chloride 0.9% (100 ml) 100 ML 27.27 MEQ IV (13:31)
--- NOTE | 2024-04-14 14:35 | P.PN_ITS ---
Subjective 2 Subjective: Patient seen and examined. Pain controlled. No new complaints Vitals/I&O/Wt Last Vital Signs Temp 99.4 F 04/14/24 20:00 Pulse 80 04/15/24 06:00 Resp 20 H 04/15/24 06:00 BP 121/71 04/15/24 06:00 Pulse Ox 96 04/15/24 06:00 O2 Del Method HAG 04/14/24 20:08 O2 Flow Rate 6 04/13/24 17:54 FiO2 21 04/14/24 20:08 04/14/24 04/15/24 04/15/24 22:59 06:59 14:59 Intake Total 253.5106 / 1253.5106 1000 / 2253.5106 Output Total 800 / 800 245 / 1045 Balance -546.4894 / 453.5106 755 / 1208.5106 Weight last 48 hrs Weight 110 lb Weight 110 lb 3.2 oz Weight 109 lb Weight 107 lb Physical Exam 2 Narrative: General: No acute distress, awake alert and oriented x 3 Abdomen: Soft, nondistended, appropriately tender, PEG tube in place without erythema or exudate Data 04/14/24 05:59 04/14/24 05:59 A&P Assessment and plan (1) Dysphagia: (2) History of gastrostomy tube placement: (3) Hypomagnesemia: Plan Start trickle tube feeds with advancement per orders Potassium and magnesium replaced Admitted to Dr. Batres Dietary consult for final tube feeding recommendations Attestations 2 Medical Necessity Statement*: Per primary Coding Level of Care Code 01171 Diagnoses Dysphagia R13.10 History of gastrostomy tube placement Hypomagnesemia E83.42
[2024-04-15] VITALS (31 sets, daily range): BP systolic 110–165; BP diastolic 62–96; PULSE 80–120; RESP 15–33; TEMP 36.6–36.8; O2SAT 85–100; BMI 19.5
[2024-04-15] MEDS: morphine 4 mg/mL SDV 1 mL 2 MG IVP ×5 (00:31→21:45)
[2024-04-15] MEDS: ondansetron 2 mg/ML SDV 2 mL 4 MG IVP ×2 (00:32→05:06)
[2024-04-15] MEDS: famotidine 20 mg/2 mL INJ IVP ×2 (04:28→15:55)
[2024-04-15] MEDS: lactated ringers 1,000 ML 125 ML IV ×3 (04:29→19:01)
--- NOTE | 2024-04-15 05:31 | P.PN_ITS ---
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 The patient is doing well today. Medications: Reviewed: Yes Vitals/I&O/Wt Last Vital Signs Temp 99.4 F 04/14/24 20:00 Pulse 85 04/15/24 04:00 Resp 31 H 04/15/24 05:05 BP 125/74 04/15/24 04:00 Pulse Ox 92 04/15/24 05:05 O2 Del Method HAG 04/14/24 20:08 O2 Flow Rate 6 04/13/24 17:54 FiO2 21 04/14/24 20:08 04/14/24 04/14/24 04/15/24 14:59 22:59 06:59 Intake Total 1000 / 9848 605.8512 / 1253.5106 1000 / 2253.5106 Output Total 800 / 800 245 / 1045 Balance 1000 / 1000 -546.4894 / 453.5106 755 / 1208.5106 Weight last 48 hrs Weight 49.986 kg Weight 49.442 kg Weight 48.534 kg Physical Exam 2 Const: COMMON NORMALS: no acute distress, patient oriented x3 and alert HENMT: COMMON NORMALS: normocephalic, atraumatic and Normal external nose present HEAD & SCALP: normocephalic and atraumatic FACE & SINUS: normal facial exam NOSE: Normal external nose present Eye: COMMON NORMALS: conjunctivae normal CONJUNCTIVA: Yes conjunctivae normal Neck/C-Spine: COMMON NORMALS: no lymphadenopathy and supple GENERAL: Yes tracheostomy present (No erythema ) Lymph: LYMPHATIC: no lymphadenopathy noted Chest: COMMONS NORMALS: normal inspection of the chest Resp: COMMON NORMALS: normal respiratory effort, No retractions, No use of accessory muscles and clear to auscultation bilaterally AUSCULTATION: clear to auscultation bilaterally Cardio: COMMON NORMALS: regular rate, regular rhythm and No murmurs present (Cardio) RATE: regular rate RHYTHM: regular rhythm GI: COMMON NORMALS: Normal to inspection, nondistended, normoactive bowel sounds present Neuro: COMMON NORMALS: patient oriented x3 SENSORIUM/ORIENTATION: Yes alert Data 04/14/24 05:59 04/14/24 05:59 A&P Assessment and plan (1) Neck mass: Impression: 64 yo wm who is POD #2 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 The patient is doing well from this standpoint. Plan: - Continue tube feeds - Continue trach care - Anticipate first trach change on POD 5-7 - D/C Planning - in process (2) Dysphagia: See the above (3) White blood cell (WBC) disorder: Impression: Possibly secondary to intraop steroid use. I see no other signs of infection at present Plan: - Hospitalist team contacted (Dr. Salgado) to medically manage the patient - I will defer to their recommendations Attestations 2 Medical Necessity Statement*: The patient requires inpatient care until after first trach changes and d/c planning are complete Coding Level of Care Code Acute Code for Chg Fwd Diagnoses Neck mass R22.1 Dysphagia R13.10 White blood cell (WBC) disorder D72.9
--- NOTE | 2024-04-15 06:22 | P.CONIM_ITS ---
Providers/Reason For Consult 2 Consulting Physician/Specialty*: Jay Salgado/internal medicine Reason for Consult*: Medical management Attending Physician: Rod Batres MD History of Present Illness History of Present Illness Ricardo Suazo is a 64 year old male with past medical history significant for hypopharyngeal mass and a threatened airway. Patient underwent tracheostomy and G-tube placement on 04/13. He has been started on tube feeds. Per nursing he is having copious secretions from his tracheostomy. Upon assessment, patient is awake and alert. Communicates with writing on paper pad although handwriting legibility is challenging. He reports pain is well-controlled. Denies fevers or chills. Review of Systems 2 Narrative: A complete review of systems was obtained and is negative except as stated in HPI. Medications/Allergies Home Medications Medication Instructions Recorded Confirmed Last Taken Type hydrocodone 5 mg-acetaminophen 325 1 tab PO Q6H PRN pain #12 tabs 03/03/24 04/13/24 03/14/24 Rx mg tablet Allergies Allergy/AdvReac Type Severity Reaction Status Date / Time Penicillins Allergy ADR-Gastrointestinal Verified 03/03/24 18:02 Upset Current Medications Generic Name Dose Route Start Last Admin Trade Name Freq PRN Reason Stop Dose Admin Famotidine 20 mg 04/13/24 12:30 04/15/24 04:28 Famotidine 20 Mg/2 Ml Inj IVP 20 mg Q12H [place] Administration Lactated Ringer's 1,000 mls @ 125 mls/hr 04/13/24 12:30 04/15/24 04:29 Lactated Ringers IV 125 mls/hr .Q8H [place] Administration Morphine Sulfate 2 mg 04/13/24 12:16 04/15/24 05:05 Morphine 4 Mg/Ml Sdv 1 Ml IVP 2 mg Q1H PRN Administration SEVERE PAIN Ondansetron HCl 4 mg 04/13/24 12:16 04/15/24 05:06 Ondansetron 2 Mg/Ml Sdv 2 Ml IVP 4 mg Q4H PRN Administration NAUSEA AND VOMITING PFSH Acute 2 PFSH: Medical History History of gastrostomy tube placement Throat mass Surgical History History of tracheostomy Vitals/I&O/Wt Last Vital Signs Temp 99.4 F 04/14/24 20:00 Pulse 85 04/15/24 04:00 Resp 31 H 04/15/24 05:05 BP 125/74 04/15/24 04:00 Pulse Ox 92 04/15/24 05:05 O2 Del Method HAG 04/14/24 20:08 O2 Flow Rate 6 04/13/24 17:54 FiO2 21 04/14/24 20:08 04/14/24 04/14/24 04/15/24 14:59 22:59 06:59 Intake Total 1000 / 7506 163.5500 / 1253.5106 1000 / 2253.5106 Output Total 800 / 800 245 / 1045 Balance 1000 / 1000 -546.4894 / 453.5106 755 / 1208.5106 Weight last 48 hrs Weight 49.986 kg Weight 49.442 kg Weight 48.534 kg Physical Exam 2 Narrative: General: Patient is awake. Cachectic appearing. Head: Normocephalic. Atraumatic. EOM intact. Neck: No JVD. Tracheostomy. Cardiovascular: RRR. No gallops. No murmurs. No peripheral edema. Lungs: Clear to auscultation, no use of accessory muscles, no crackles or wheezes. Skin: No jaundice. No rashes. Abdomen: Normal bowel sounds, abdomen soft and nontender. G-tube. Genito Urinary: Genital exam not performed since complaints not related. Rectal: Rectal exam not performed since no symptoms indicated blood loss. Extremities: No cyanosis or clubbing. Musculoskeletal: No swollen or erythematous joints. Neurological: Moves all 4 extremities. No myoclonus. Data 04/14/24 05:59 04/14/24 05:59 A&P Assessment and plan (1) Neck mass: Status post tracheostomy and G-tube placement on 04/13 Recommend DVT prophylaxis if no contraindication Patient started on tube feeds Monitor for refeeding syndrome, labs ordered (2) Leukocytosis: Likely stress-induced versus infection Recheck CBC Check procalcitonin Repeat chest x-ray (3) Hypomagnesemia: Check magnesium and replace as needed (4) Hypophosphatemia: Check phosphate and other electrolytes (5) Tracheostomy in place: Routine tracheostomy care Plan Thanks for consultation. Hospitalist group will follow. Consult Attestations 2 Medical Necessity Statement: Per primary Coding Level of Care Code Acute Code for Chg Fwd Diagnoses Neck mass R22.1 Leukocytosis D72.829 Hypomagnesemia E83.42 Hypophosphatemia E83.[address] Z93.0
--- NOTE | 2024-04-15 06:42 | XR_ITS ---
WS: [id number] Examination: XR chest 1V portable [id number] Reason for Exam: Leukocytosis, status post trach Date: April 15, 2024 Comparison: April 13, 2024 Findings: Tracheostomy tube is midline The heart is not enlarged. The mediastinum is not widened. Bilaterally the hemidiaphragms are indistinct with basilar opacities. This may represent atelectasis, infiltrate, and/or effusion. No failure seen. XR/XR chest 1V portable [id number] Impression: There are bilateral basilar opacities which may represent atelectasis, infiltra te, and/or effusion.
[2024-04-15 07:40] LABS: Basophils % 0.1 %; Hematocrit 37.4 % (37-53); Lymphocytes % 8.6 %; Mean Corpuscular HGB Conc 36.9 g/dL (30-55); Mean Platelet Volume 9.9 fL (7.4-10.4); Monocytes # 1.3 10^3/uL (0.2-0.9); Monocytes % 11.8 %; Neutrophils # 8.79 10^3/uL (1.8-7.7); Neutrophils % 79.1 %; Nucleated Red Blood Cells % 0 %; Platelet Count 166 10^3/cmm (157-399); Red Blood Count 3.63 10^6/uL (3.85-5.65); Red Cell Distribution Width 10.9 % (12.1-15.1); White Blood Count 11.11 10^3/uL (3.29-11.43)
[2024-04-15 07:57] LABS: Alanine Aminotransferase 18 U/L (0-41); Albumin Level 3.2 g/dL (3.5-5.2); Alkaline Phosphatase 57 U/L (40-130); Anion Gap 14.2 (5-19); Aspartate Amino Transferase 14 U/L (0-40); Blood Urea Nitrogen 6 mg/dL (8-23); Calcium 8.9 mg/dL (8.5-10.5); Carbon Dioxide 29 mmol/L (22-29); Chloride 96 mmol/L (98-107); Creatinine Clr Calc Pharmacy 114.2069; Globulin 2.9 g/dL (1.3-4.6); Glomerular Filtration Rate 167.4 mL/min (90-130); Glucose 146 mg/dL (65-115); Magnesium 1.9 mg/dL (1.7-2.3); Osmolality Calculated 282 mOsm/kg (285-295); Phosphorus 2.2 mg/dL (2.5-4.5); Potassium 3.2 mmol/L (3.5-5.1); Sodium 136 mmol/L (136-145); Total Bilirubin 0.8 mg/dL (0.15-1.2); Total Protein 6.1 g/dL (6.6-8.7)
[2024-04-15 08:02] LABS: Procalcitonin 0.14 ng/mL (0-0.5)
[2024-04-15] MEDS: potassium phosphate (mEq K) 40 MEQ in sodium chloride 0.9% (100 ml) 100 ML 27.27 MEQ IV (08:41)
[2024-04-15 09:17] LABS: C Reactive Protein 73.4 mg/L (0.0-4.9)
[2024-04-15 10:10] LABS: Charge for UA Resulting for Rev
[2024-04-15 10:17] LABS: Bilirubin Urine Negative (Negative); Blood Urine Negative (Negative); Glucose Urine UA Negative (Normal); Ketones Urine Negative (Negative); Leukocyte Esterase Urine Negative (Negative); Nitrate Urine Negative (Negative); Protein Urine Negative (Negative); Specific Gravity, Urine 1.011 (1.005-1.030); Urine Appearance Clear (CLEAR); Urine Color Yellow (Yellow); pH Urine 7.5 (5-7)
[2024-04-15 10:20] LABS: Bacteria Urine None Seen /hpf; RBC Urine 0-2 /hpf (0-2); Squamous Epithelial Cell Urine 0-5 /hpf (0-5); WBC Urine 0-5 /hpf (0-5)
--- NOTE | 2024-04-15 11:00 | P.PN_ITS ---
Subjective 2 Subjective: Patient was seen this morning, currently is in bed, receiving PEG tube feedings, he is on 21% Hag he can follow commands, during my examination, denying any fevers, does have a cough Vitals/I&O/Wt Last Vital Signs Temp 99.4 F 04/14/24 20:00 Pulse 104 H 04/15/24 10:00 Resp 24 H 04/15/24 10:00 BP 129/91 04/15/24 10:00 Pulse Ox 95 04/15/24 10:00 O2 Del Method HAG 04/15/24 07:39 O2 Flow Rate 6 04/13/24 17:54 FiO2 21 04/15/24 07:39 04/14/24 04/15/24 04/15/24 22:59 06:59 14:59 Intake Total 253.5106 / 1253.5106 1000 / 2253.5106 807.5 / 807.5 Output Total 800 / 800 245 / 1045 200 / 200 Balance -546.4894 / 453.5106 755 / 1208.5106 607.5 / 607.5 Weight last 48 hrs Weight 49.895 kg Weight 49.986 kg Weight 49.442 kg Physical Exam 2 Const: COMMON NORMALS: no acute distress ORIENTATION/CONSCIOUSNESS: Yes awake, Yes oriented to person and Yes oriented to place HENMT: OTHER: Tracheostomy in place Resp: COMMON NORMALS: normal respiratory effort, No retractions, No use of accessory muscles and clear to auscultation bilaterally AUSCULTATION: clear to auscultation bilaterally Cardio: COMMON NORMALS: regular rate, regular rhythm, S1 normal heart sound present and S2 normal heart sound present RATE: regular rate RHYTHM: r egular rhythm HEART SOUNDS: S1 normal heart sound present and S2 normal heart sound present GI: COMMON NORMALS: Normal to inspection, nondistended, normoactive bowel sounds present and non-tender OTHER: PEG tube in place Extremity: COMMON NORMALS: no pedal edema Neuro: SENSORIUM/ORIENTATION: Yes oriented to person and Yes oriented to place Psych: COMMON NORMALS: mental status grossly normal Data 04/15/24 07:04 04/15/24 07:04 A&P Assessment and plan (1) Neck mass: Status post tracheostomy and G-tube placement on 04/13 Recommend DVT prophylaxis if no contraindication Patient started on tube feeds Monitor for refeeding syndrome, labs ordered (2) Leukocytosis: Likely stress-induced versus infection Recheck CBC, white blood cell count 11.1 Check procalcitonin within normal limits, CRP 73.4 Repeat chest x-ray shows bilateral basilar opacities which may represent atelectasis/infiltrate and/or effusion, will monitor for now UA within normal limits Respiratory viral panel pending (3) Hypomagnesemia: Check magnesium and replace as needed (4) Hypophosphatemia: Check phosphate and other electrolytes (5) Tracheostomy in place: Routine tracheostomy care Plan Plan for today monitor for fevers, monitor respiratory status, await respiratory viral panel, replace electrolyte, Attestations 2 Medical Necessity Statement*: Patient requires hospitalization, for tracheostomy and PEG tube placement, hospitalist team consulted for leukocytosis Diagnoses Neck mass R22.1 Leukocytosis D72.829 Hypomagnesemia E83.42 Hypophosphatemia E83.[address] Z93.0
--- NOTE | 2024-04-15 11:09 | PC.NURSE ---
large amt secretions from trach , frequent dressing change done nasal swab to lab and urine ... pain medication given at this time prior to getting up with physical therapy
--- NOTE | 2024-04-15 11:47 | P.PN_ITS ---
Subjective 2 Subjective: Patient seen and examined. Pain controlled. Denies any new symptoms. Tolerating tube feeds at temporary goal of 30 cc/h Vitals/I&O/Wt Last Vital Signs Temp 99.4 F 04/14/24 20:00 Pulse 104 H 04/15/24 10:00 Resp 24 H 04/15/24 10:00 BP 129/91 04/15/24 10:00 Pulse Ox 95 04/15/24 10:00 O2 Del Method HAG 04/15/24 07:39 O2 Flow Rate 6 04/13/24 17:54 FiO2 21 04/15/24 07:39 04/14/24 04/15/24 04/15/24 22:59 06:59 14:59 Intake Total 253.5106 / 1253.5106 1000 / 2253.5106 807.5 / 807.5 Output Total 800 / 800 245 / 1045 200 / 200 Balance -546.4894 / 453.5106 755 / 1208.5106 607.5 / 607.5 Weight last 48 hrs Weight 110 lb Weight 110 lb 3.2 oz Weight 109 lb Physical Exam 2 Narrative: General: No acute distress, awake alert and oriented x 3 Abdomen: Soft, nondistended, minimally tender around PEG tube insertion site, no erythema or exudate Data 04/15/24 07:04 04/15/24 07:04 A&P Assessment and plan (1) Dysphagia: (2) History of gastrostomy tube placement: (3) Hypomagnesemia: Plan Advance tube feeds to goal set by dietary Admitted to Dr. Batres Internal medicine following General surgery will sign off. Please reconsult if the need arises Attestations 2 Medical Necessity Statement*: Per primary Coding Level of Care Code 48655 Diagnoses Dysphagia R13.10 History of gastrostomy tube placement Hypomagnesemia E83.42
[2024-04-15 12:40] LABS: Adenovirus Not Detected (NOT DETECT); Chlamydia Pneumoniae Not Detected (NOT DETECT); Coronavirus 229E,HKU1,NL63,OC4 Not Detected (NOT DETECT); Human Metapneumovirus Not Detected (NOT DETECT); Human Rhinovirus/Enterovirus Not Detected (NOT DETECT); Influenza A Not Detected (NOT DETECT); Influenza A H1 Not Detected (NOT DETECT); Influenza A H1-2009 Not Detected (NOT DETECT); Influenza A H3 Not Detected (NOT DETECT); Influenza B Not Detected (NOT DETECT); Mycoplasma Pneumoniae Not Detected (NOT DETECT); Parainfluenza Virus Type 1 Not Detected (NOT DETECT); Parainfluenza Virus Type 2 Not Detected (NOT DETECT); Parainfluenza Virus Type 3 Not Detected (NOT DETECT); Parainfluenza Virus Type 4 Not Detected (NOT DETECT); Respiratory Syncytial Virus A Not Detected (NOT DETECT); Respiratory Syncytial Virus B Not Detected (NOT DETECT); SARS-COV-2 Not Detected (NOT DETECT)
--- NOTE | 2024-04-15 17:18 | PC.NURSE ---
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
[2024-04-16] VITALS (21 sets, daily range): BP systolic 124–160; BP diastolic 72–105; PULSE 75–104; RESP 16–28; TEMP 36.6–37.6; O2SAT 88–100
[2024-04-16] MEDS: lactated ringers 1,000 ML 125 ML IV ×3 (04:23→21:53)
[2024-04-16] MEDS: famotidine 20 mg/2 mL INJ IVP ×2 (04:25→15:05)
[2024-04-16 05:15] LABS: Basophils % 0.4 %; Eosinophils % 0.3 %; Lymphocytes % 9.3 %; Mean Corpuscular HGB Conc 36.4 g/dL (30-55); Mean Corpuscular Hemoglobin 37.1 pg (27-33); Monocytes # 1.8 10^3/uL (0.2-0.9); Monocytes % 17.7 %; Neutrophils # 7.38 10^3/uL (1.8-7.7); Neutrophils % 71.9 %; Nucleated Red Blood Cells % 0 %; Platelet Count 166 10^3/cmm (157-399); Red Blood Count 3.53 10^6/uL (3.85-5.65); Red Cell Distribution Width 10.6 % (12.1-15.1); White Blood Count 10.25 10^3/uL (3.29-11.43)
[2024-04-16 05:41] LABS: Alanine Aminotransferase 18 U/L (0-41); Albumin Level 2.9 g/dL (3.5-5.2); Alkaline Phosphatase 52 U/L (40-130); Anion Gap 17.2 (5-19); Aspartate Amino Transferase 17 U/L (0-40); Blood Urea Nitrogen 5 mg/dL (8-23); Calcium 8.9 mg/dL (8.5-10.5); Carbon Dioxide 27 mmol/L (22-29); Chloride 91 mmol/L (98-107); Creatinine Clr Calc Pharmacy 142.7586; Globulin 3.4 g/dL (1.3-4.6); Glomerular Filtration Rate 216.6 mL/min (90-130); Glucose 123 mg/dL (65-115); Osmolality Calculated 273 mOsm/kg (285-295); Potassium 3.2 mmol/L (3.5-5.1); Sodium 132 mmol/L (136-145); Total Bilirubin 1.3 mg/dL (0.15-1.2); Total Protein 6.3 g/dL (6.6-8.7)
[2024-04-16] MEDS: ipratropium-albuterol 3 mL Neb INHALATION ×2 (05:45→21:10)
--- NOTE | 2024-04-16 05:57 | P.PN_ITS ---
Subjective 2 Subjective: 64 yo wm who is POD #3 s/p tracheotomy/P EG tube placement. The patient has no c/o. Medications: Reviewed: Yes Vitals/I&O/Wt Last Vital Signs Temp 99.0 F 04/16/24 03:30 Pulse 86 04/16/24 05:47 Resp 18 04/16/24 05:47 BP 151/83 04/16/24 03:30 Pulse Ox 94 04/16/24 05:47 O2 Del Method HAG 04/16/24 05:47 O2 Flow Rate 6 04/16/24 03:30 FiO2 21 04/16/24 05:47 04/15/24 04/15/24 04/16/24 14:59 22:59 06:59 Intake Total 961.0106 / 961.0106 1680 / 2641.0106 1000 / 3641.0106 Output Total 400 / 400 1150 / 1550 425 / 1975 Balance 561.0106 / 561.0106 530 / 1091.0106 575 / 1666.0106 Weight last 48 hrs Weight 49.895 kg Weight 49.986 kg Physical Exam 2 Const: COMMON NORMALS: no acute distress, patient oriented x3 and alert HENMT: COMMON NORMALS: normocephalic and atraumatic HEAD & SCALP: n ormocephalic and atraumatic FACE & SINUS: normal facial exam Eye: COMMON NORMALS: Equal, round and reactive pupils present and EOMs intact bilaterally PUPIL: Yes Equal, round and reactive pupils present Neck/C-Spine: COMMON NORMALS: full ROM and no lymphadenopathy Lymph: LYMPHATIC: no lymphadenopathy noted Chest: COMMONS NORMALS: normal inspection of the chest Resp: COMMON NORMALS: normal respiratory effort, No retractions, No use of accessory muscles and clear to auscultation bilaterally AUSCULTATION: clear to auscultation bilaterally Cardio: COMMON NORMALS: regular rate, regular rhythm and No murmurs present (Cardio) RATE: regular rate RHYTHM: regular rhythm GI: COMMON NORMALS: Normal to inspection, nondistended, normoactive bowel sounds present Extremity: COMMON NORMALS: normal to inspection Neuro: COMMON NORMALS: patient oriented x3 SENSORIUM/ORIENTATION: Yes alert Data 04/16/24 04:39 04/16/24 04:39 Micro: Microbiology 04/15/24 11:25 Gram Stain - Final Sputum - Expectorated Sputum A&P Assessment and plan (1) Neck mass: Impression: 64 yo wm with a 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 Plan: - First trach change on 04/19/24 - Plan for d/c on 04/19/24 - Continue trach care and PEG care - Will arrange for treatment of the patient's hypopharyngeal tumor after d/c - Hospitalists to follow Hypomagnesemia/medical (2) Dysphagia: See the above (3) Tracheostomy in place: See the above (4) White blood cell (WBC) disorder: Impression: Resolved Plan: Observation Attestations 2 Medical Necessity Statement*: The patient requires inpatient care until after first trach changes and d/c planning Coding Level of Care Code Acute Code for Chg Fwd Diagnoses Neck mass R22.1 Dysphagia R13.[address] Z93.0 White blood cell (WBC) disorder D72.9
--- NOTE | 2024-04-16 07:40 | PC.NURSE ---
Report called to [facility]. Report given to TANVI Grant
[2024-04-16 08:29] LABS: Magnesium 1.5 mg/dL (1.7-2.3); Phosphorus 2.3 mg/dL (2.5-4.5)
--- NOTE | 2024-04-16 08:30 | PC.NURSE ---
Pt transferred to room 258 via bed. All belongings and trach supplies with pt.
[2024-04-16] MEDS: HYDROcodone-acetaminophen 5-325 mg Tablet 1 TAB PO (09:46)
--- NOTE | 2024-04-16 09:49 | XR_ITS ---
WS: [id number] Examination: XR chest 1V portable [id number] Reason for Exam: shortness of breath Date: April 16, 2024 Comparison: April 15, 2024 Findings: The tracheostomy tube is in good position. The cardiomediastinal silhouette is unchanged Again basilar opacities causing indistinctness of the hemidiaphragms are noted. This is similar to e previous study. There is no pulmonary edema. XR/XR chest 1V portable [id number] Impression: Continued bilateral basilar opacities. This may represent atelectasis, infiltra te, and/or effusion.
--- NOTE | 2024-04-16 10:15 | PC.NURSE ---
Pt tolerated 125 mL of Jevity 1.5 Bolus feeding and requested this RN to stop.
[2024-04-16] MEDS: magnesium sulfate premix 1 GM/100 ML PIGGYBACK IV (11:01)
[2024-04-16] MEDS: potassium phosphate (mEq K) 40 MEQ in sodium chloride 0.9% (100 ml) 100 ML 27.27 MEQ IV (11:32)
--- NOTE | 2024-04-16 11:40 | P.PN_ITS ---
Subjective 2 Subjective: Patient was seen this morning, he is sitting up in bed, family members at bedside, complaining of increased purulent cough coming from his tracheostomy, complaining of some discomfort, no fevers overnight, no chills, no abdominal pain, tolerating PEG tube feedings Vitals/I&O/Wt Last Vital Signs Temp 97.9 F 04/16/24 08:00 Pulse 87 04/16/24 08:45 Resp 16 04/16/24 08:45 BP 148/72 04/16/24 08:00 Pulse Ox 94 04/16/24 08:45 O2 Del Method HAG 04/16/24 08:45 O2 Flow Rate 6 04/16/24 07:30 FiO2 21 04/16/24 08:45 04/15/24 04/16/24 04/16/24 22:59 06:59 14:59 Intake Total 1680 / 2641.0106 1000 / 3641.0106 1004.167 / 1004.167 Output Total 1150 / 1550 675 / 2225 100 / 100 Balance 530 / 1091.0106 325 / 1416.0106 904.167 / 904.167 Weight last 48 hrs Weight 49.895 kg Weight 49.895 kg Physical Exam 2 Const: COMMON NORMALS: no acute distress and patient oriented x3 OTHER: Tracheostomy in place Resp: COMMON NORMALS: normal respiratory effort, No retractions and No use of accessory muscles AUSCULTATION: wheezes Cardio: COMMON NORMALS: regular rate, regular rhythm, S1 normal heart sound present and S2 normal heart sound present RATE: regular rate RHYTHM: r egular rhythm HEART SOUNDS: S1 normal heart sound present and S2 normal heart sound present GI: COMMON NORMALS: Normal to inspection, nondistended, normoactive bowel sounds present and non-tender Extremity: COMMON NORMALS: no pedal edema Neuro: COMMON NORMALS: patient oriented x3 Data 04/16/24 04:39 04/16/24 04:39 Micro: Microbiology 04/15/24 11:25 Gram Stain - Final Sputum - Expectorated Sputum Sputum Culture - Preliminary A&P Assessment and plan (1) Neck mass: Status post tracheostomy and G-tube placement on 04/13 Recommend DVT prophylaxis if no contraindication Patient started on tube feeds Monitor for refeeding syndrome, labs ordered (2) Leukocytosis: Due to persistent purulent cough from tracheostomy site, chest x-ray showing persistent bibasilar opacity with atelectasis, low-grade temperatures, discerning for developing pneumonia Start Rocephin Start azithromycin Repeat chest x-ray shows bilateral basilar opacities which may represent atelectasis/infiltrate and/or effusion, (3) Hypomagnesemia: Check magnesium and replace as needed (4) Hypophosphatemia: Check phosphate and other electrolytes (5) Tracheostomy in place: Routine tracheostomy care (6) Refeeding syndrome: (7) Pneumonia: Plan Developing mild degree refeeding syndrome, with hypokalemia, hypophosphatemia hypomagnesemia will replace today Attestations 2 Medical Necessity Statement*: Patient requires hospitalization for concerns for pneumonia, mild degree of refeeding syndrome Diagnoses Neck mass R22.1 Leukocytosis D72.829 Hypomagnesemia E83.42 Hypophosphatemia E83.[address] Z93.0 Refeeding syndrome E87.8 Pneumonia J18.9
[2024-04-16] MEDS: azithromycin 500 MG in sodium chloride 0.9% 250 ML 250 MG IV (12:03)
[2024-04-16] MEDS: cefTRIAXone 1,000 mg SDV 1000 MG IVP (12:04)
[2024-04-16] MEDS: morphine 4 mg/mL SDV 1 mL 2 MG IVP (15:05)
--- NOTE | 2024-04-16 19:54 | PC.NURSE ---
the pt became very impulsive especially with getting up from bed to go to the restroom. when this occurred the pt pull 2 IVs out. this nurse and charge nurse agreed the pt would benefit from a 1:1 to control and redirect impulse activity.
[2024-04-17] VITALS (7 sets, daily range): BP systolic 132–139; BP diastolic 71–83; PULSE 88–96; RESP 16–18; TEMP 36.4–36.7; O2SAT 92–94
--- NOTE | 2024-04-17 03:11 | PC.NURSE ---
pt very irritable with staff. pt is calling staff liars when staff tries to orient patient. Patient asked for his . This nurse attempted to reach out to twice with no answer, voicemail was left for to call back. Patient believes it is the afternoon and has not seen his all day. This nurse showed patient the attempts to reach on voalte phone and time was called. Patient still irritable and becoming agitated. Dr. Salgado was called for something to help calm him down. When this nurse went to administer medication, patient grabbed at his IV in a threatening manner to pull it out. Patient mouthed, No! and pulled his arm away holding his IV pulling at it. This nurse informed the patient that I would not give the medication but he would have to stop getting irritated with nursing staff and quit pulling at things. Patient was asked if he would like to watch tv and tilted his hand in a maybe manner.
--- NOTE | 2024-04-17 05:25 | PC.NURSE ---
patient refused 0400 vital signs and morning labs. patient now refusing to wear humidity. patient educated that it will help keeps his secretions loose so they come up easier.
[2024-04-17] MEDS: lactated ringers 1,000 ML 125 ML IV (06:04)
--- NOTE | 2024-04-17 07:32 | P.PN_ITS ---
Subjective 2 Subjective: 64 yo wm who is POD #4 s/p tracheotomy/P EG placement for T4 Hypopharyngeal Squamous Cell Carcinoma. The patient is doing well, but would like to go home. Medications: Reviewed: Yes Vitals/I&O/Wt Last Vital Signs Temp 97.9 F 04/16/24 23:36 Pulse 82 04/16/24 23:36 Resp 18 04/16/24 23:36 BP 155/79 04/16/24 23:36 Pulse Ox 97 04/16/24 23:36 O2 Del Method HAG 04/16/24 21:10 O2 Flow Rate 6 04/16/24 07:30 FiO2 21 04/16/24 21:10 04/16/24 04/17/24 04/17/24 22:59 06:59 14:59 Intake Total 1108.5106 / 2362.6776 1000 / 3362.6776 Output Total 175 / 275 Balance 933.5106 / 2087.6776 1000 / 3087.6776 Weight last 48 hrs Weight 54.567 kg Weight 49.895 kg Physical Exam 2 Const: COMMON NORMALS: no acute distress, patient oriented x3 and alert HENMT: COMMON NORMALS: normocephalic, atraumatic and Normal external nose present HEAD & SCALP: normocephalic and atraumatic FACE & SINUS: normal facial exam and face symmetric NOSE: Normal external nose present THROAT: posterior oropharynx normal Eye: COMMON NORMALS: Equal, round and reactive pupils present, EOMs intact bilaterally, conjunctivae normal and no scleral icterus CONJUNCTIVA: Yes conjunctivae normal PUPIL: Yes Equal, round and reactive pupils present Neck/C-Spine: COMMON NORMALS: full ROM and no lymphadenopathy GENERAL: Yes tracheostomy present (There is erythema of the skin above the trach) Chest: COMMONS NORMALS: normal inspection of the chest Resp: COMMON NORMALS: normal respiratory effort, No retractions, No use of accessory muscles and clear to auscultation bilaterally AUSCULTATION: clear to auscultation bilaterally Cardio: COMMON NORMALS: regular rate, regular rhythm and No murmurs present (Cardio) RATE: regular rate RHYTHM: regular rhythm GI: COMMON NORMALS: Normal to inspection, nondistended, normoactive bowel sounds present Neuro: COMMON NORMALS: patient oriented x3 SENSORIUM/ORIENTATION: Yes alert Data 04/16/24 04:39 04/16/24 04:39 Micro: Microbiology 04/15/24 11:25 Gram Stain - Final Sputum - Expectorated Sputum Sputum Culture - Preliminary A&P Assessment and plan (1) Neck mass: Impression: 64 YO WM with large hypopharyngeal squamous cell carcinoma who is POD #4 s/p tracheotomy/PEG placement doing well except as noted below. 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
--- NOTE | 2024-04-17 07:33 | PC.NURSE ---
While at bedside Dr. Batres came in to visit with the pt. Dr. Batres discussed with the pt that we were working on getting the appropriate equipment necessary to his care and once that was done her could discharge home. The pt then shook his head no and gestured with his hand that he is leaving today. Dr. Batres restated the significance of the importance to wait for the equipment needed for his care, but the pt shook his and gestured again he is leaving today. Dr. Batres verbally stated to the pt that he would be doing so against his medical advice and would need to sign a form agreeing to this decision and the pt shook his yes as if agreeing. Dr. Batres told this nurse the pt is not ready for discharge, but if he goes to leave to allow him to sign an AMA form. This nurse called the pt and informed her of the situation and she stated she is not ready to care for him at home and that he needs to stay. I explained to her the pt has been trying to leave to the hospital for several hours according to the NOC shift nurse. She then asked if she could declare him incompetent, because he is just stubborn. I stated that a physician has to be the one to make the decision. The said she would come in and speak with the pt and go from there. This attempted to call the hospitalist on the pt chart and was unable to reach them.
[2024-04-17 09:03] LABS: Basophils % 0.3 %; Hematocrit 35.2 % (37-53); Lymphocytes # 0.8 10^3/uL (0.8-4.8); Lymphocytes % 8.1 %; Mean Corpuscular HGB Conc 36.9 g/dL (30-55); Mean Corpuscular Hemoglobin 36.9 pg (27-33); Monocytes # 1.9 10^3/uL (0.2-0.9); Monocytes % 19.3 %; Neutrophils # 7.15 10^3/uL (1.8-7.7); Neutrophils % 71.9 %; Nucleated Red Blood Cells % 0 %; Platelet Count 188 10^3/cmm (157-399); Red Blood Count 3.52 10^6/uL (3.85-5.65); Red Cell Distribution Width 10.6 % (12.1-15.1); White Blood Count 9.95 10^3/uL (3.29-11.43)
[2024-04-17 09:22] LABS: Alanine Aminotransferase 34 U/L (0-41); Albumin Level 3.2 g/dL (3.5-5.2); Alkaline Phosphatase 52 U/L (40-130); Anion Gap 15.1 (5-19); Aspartate Amino Transferase 45 U/L (0-40); Blood Urea Nitrogen 5 mg/dL (8-23); Calcium 9.4 mg/dL (8.5-10.5); Carbon Dioxide 29 mmol/L (22-29); Chloride 90 mmol/L (98-107); Globulin 3.2 g/dL (1.3-4.6); Glomerular Filtration Rate 216.6 mL/min (90-130); Glucose 97 mg/dL (65-115); Osmolality Calculated 269 mOsm/kg (285-295); Potassium 3.1 mmol/L (3.5-5.1); Sodium 131 mmol/L (136-145); Total Bilirubin 1.2 mg/dL (0.15-1.2); Total Protein 6.4 g/dL (6.6-8.7)
[2024-04-17] MEDS: ciprofloxacin 400 MG/200 ML PREMIX 200 MG IV ×3 (09:28→23:55)
[2024-04-17] MEDS: folic acid 1 mg Tablet PO (09:28)
[2024-04-17] MEDS: multivitamin therapeutic Tablet 1 TAB PO (09:28)
[2024-04-17] MEDS: chlordiazePOXIDE 25 mg Capsule 50 MG PO (09:29)
[2024-04-17] MEDS: morphine 4 mg/mL SDV 1 mL 2 MG IVP (09:29)
[2024-04-17] MEDS: thiamine 100 mg Tablet PO (09:29)
[2024-04-17 09:34] LABS: Creatinine Clr Calc Pharmacy 147.6902
--- NOTE | 2024-04-17 10:26 | P.PN_ITS ---
Subjective 2 Subjective: Patient was seen this morning, is at bedside he had episodes of agitation during the night, he was reporting wanting to leave the hospital AGAINST MEDICAL ADVICE, but after discussion with nursing staff and Dr. Avery patient was agreeable to stay in the hospital, currently patient sitting up at side of the bed, at bedside, patient's does report a history of alcoholism, she tells me that on a regular basis he gets drunk, he has a mild tremor on examination, he is able to speak to me via writing, he tells me that he is in pain he wants morphine, no headache, blurry vision, no nausea, no vomiting, his purulent drainage from his trach site has decreased, discussed placing him on Librium for alcohol withdrawal Vitals/I&O/Wt Last Vital Signs Temp 97.9 F 04/16/24 23:36 Pulse 88 04/17/24 08:13 Resp 18 04/17/24 09:29 BP 155/79 04/16/24 23:36 Pulse Ox 92 04/17/24 08:13 O2 Del Method HAG 04/17/24 08:13 O2 Flow Rate 6 04/16/24 07:30 FiO2 28 04/17/24 08:13 04/16/24 04/17/24 04/17/24 22:59 06:59 14:59 Intake Total 1108.5106 / 2362.6776 1000 / 3362.6776 480 / 480 Output Total 175 / 275 Balance 933.5106 / 2087.6776 1000 / 3087.6776 480 / 480 Weight last 48 hrs Weight 54.567 kg Weight 49.895 kg Physical Exam 2 Const: COMMON NORMALS: no acute distress ORIENTATION/CONSCIOUSNESS: Yes awake, Yes oriented to person and Yes oriented to place; not oriented to time HENMT: OTHER: Tracheostomy in place Resp: COMMON NORMALS: normal respiratory effort, No retractions, No use of accessory muscles and clear to auscultation bilaterally AUSCULTATION: clear to auscultation bilaterally Cardio: COMMON NORMALS: regular rate, regular rhythm, S1 normal heart sound present and S2 normal heart sound present RATE: regular rate RHYTHM: r egular rhythm HEART SOUNDS: S1 normal heart sound present and S2 normal heart sound present GI: COMMON NORMALS: Normal to inspection, nondistended, normoactive bowel sounds present and non-tender Extremity: COMMON NORMALS: no pedal edema Neuro: SENSORIUM/ORIENTATION: Yes oriented to person, Yes oriented to place and No oriented to time Psych: COMMON NORMALS: mental status grossly normal Data 04/17/24 08:48 04/17/24 08:48 Micro: Microbiology 04/15/24 11:25 Gram Stain - Final Sputum - Expectorated Sputum Sputum Culture - Preliminary A&P Assessment and plan (1) Neck mass: Status post tracheostomy and G-tube placement on 04/13 Recommend DVT prophylaxis if no contraindication Patient started on tube feeds Monitor for refeeding syndrome, labs ordered (2) Leukocytosis: Due to persistent purulent cough from tracheostomy site, chest x-ray showing persistent bibasilar opacity with atelectasis, low-grade temperatures, discerning for developing pneumonia Repeat chest x-ray shows bilateral basilar opacities which may represent atelectasis/infiltrate and/or effusion (3) Hypomagnesemia: Check magnesium and replace as needed (4) Hypophosphatemia: Check phosphate and other electrolytes (5) Tracheostomy in place: Routine tracheostomy care (6) Refeeding syndrome: - Replace electrolytes -Check potassium, magnesium, phosphorus -Replace IV K-Phos this morning (7) Pneumonia: - Will switch to ceftazidime 2 g IV every 8 hours ?continue ciprofloxacin (8) Alcohol abuse with withdrawal: Plan Developing mild degree refeeding syndrome, with hypokalemia, hypophosphatemia hypomagnesemia will replace today Concern for cellulitis around tracheostomy site continue ceftazidime, ciprofloxacin Concern for alcohol withdrawal ? CIWA protocol ? Scheduled Librium 50 every 6 hours ? Neurochecks ? Aspiration precautions Attestations 2 Medical Necessity Statement*: Patient requires hospitalization for pneumonia, alcohol withdrawal Diagnoses Neck mass R22.1 Leukocytosis D72.829 Hypomagnesemia E83.42 Hypophosphatemia E83.[address] Z93.0 Refeeding syndrome E87.8 Pneumonia J18.9 Alcohol abuse with withdrawal F10.139
[2024-04-17 10:44] LABS: Magnesium 1.6 mg/dL (1.7-2.3); Phosphorus 2.3 mg/dL (2.5-4.5)
[2024-04-17] MEDS: potassium phosphate (mEq K) 40 MEQ in sodium chloride 0.9% (100 ml) 100 ML 27.27 MEQ IV (11:54)
[2024-04-17] MEDS: cefTAZidime 2,000 mg SDV 2000 MG IVP ×2 (11:54→21:06)
[2024-04-17] MEDS: chlordiazePOXIDE 25 mg Capsule 50 MG PEG-TUBE ×2 (15:25→21:07)
[2024-04-17] MEDS: famotidine 20 mg/2 mL INJ IVP (15:25)
[2024-04-17] MEDS: ipratropium-albuterol 3 mL Neb INHALATION (20:05)
[2024-04-18] VITALS (8 sets, daily range): BP systolic 106–161; BP diastolic 53–89; PULSE 64–98; RESP 15–18; TEMP 36.4–37.1; O2SAT 91–95
[2024-04-18] MEDS: cefTAZidime 2,000 mg SDV 2000 MG IVP ×3 (03:55→18:37)
[2024-04-18] MEDS: chlordiazePOXIDE 25 mg Capsule 50 MG PEG-TUBE ×4 (03:56→20:11)
[2024-04-18] MEDS: famotidine 20 mg/2 mL INJ IVP ×2 (03:56→15:29)
[2024-04-18 04:03] LABS: Basophils % 0.5 %; Eosinophils % 0.3 %; Hematocrit 33.8 % (37-53); Lymphocytes # 0.8 10^3/uL (0.8-4.8); Lymphocytes % 9.8 %; Mean Corpuscular HGB Conc 36.7 g/dL (30-55); Mean Corpuscular Hemoglobin 37.2 pg (27-33); Mean Corpuscular Volume 101.5 fl (82-101); Mean Platelet Volume 10.3 fL (7.4-10.4); Monocytes # 1.4 10^3/uL (0.2-0.9); Monocytes % 16.7 %; Neutrophils # 6.21 10^3/uL (1.8-7.7); Neutrophils % 72.1 %; Nucleated Red Blood Cells % 0 %; Platelet Count 222 10^3/cmm (157-399); Red Blood Count 3.33 10^6/uL (3.85-5.65); Red Cell Distribution Width 10.6 % (12.1-15.1); White Blood Count 8.61 10^3/uL (3.29-11.43)
[2024-04-18 04:33] LABS: Alanine Aminotransferase 42 U/L (0-41); Alkaline Phosphatase 51 U/L (40-130); Blood Urea Nitrogen 5 mg/dL (8-23); Calcium 9.6 mg/dL (8.5-10.5); Carbon Dioxide 30 mmol/L (22-29); Chloride 94 mmol/L (98-107); Creatinine Clr Calc Pharmacy 147.6902; Globulin 3.1 g/dL (1.3-4.6); Glomerular Filtration Rate 216.6 mL/min (90-130); Glucose 102 mg/dL (65-115); Magnesium 1.7 mg/dL (1.7-2.3); Osmolality Calculated 279 mOsm/kg (285-295); Phosphorus 3.5 mg/dL (2.5-4.5); Sodium 136 mmol/L (136-145); Total Bilirubin 0.9 mg/dL (0.15-1.2); Total Protein 6.1 g/dL (6.6-8.7)
[2024-04-18 04:35] LABS: Anion Gap 15.2 (5-19); Aspartate Amino Transferase 47 U/L (0-40); Potassium 3.2 mmol/L (3.5-5.1)
--- NOTE | 2024-04-18 07:41 | P.PN_ITS ---
Subjective 2 Subjective: 64 yo wm with h/o a T4 Hypopharyngeal Sq uamous Cell Carcinoma who is POD #5 s/p tracheotomy and PEG placement. The patient began DT prophylaxis yesterday and has been reportedly better/less agitated overnight. There are no c/o. Medications: Reviewed: Yes Vitals/I&O/Wt Last Vital Signs Temp 97.8 F 04/18/24 07:16 Pulse 74 04/18/24 07:16 Resp 17 04/18/24 07:16 BP 106/53 04/18/24 07:16 Pulse Ox 91 04/18/24 07:16 O2 Del Method Room Air 04/18/24 07:16 O2 Flow Rate 7 04/17/24 20:05 FiO2 28 04/17/24 20:05 04/17/24 04/18/24 04/18/24 22:59 06:59 14:59 Intake Total 1648.5106 / 2328.5106 200 / 2528.5106 Output Total 250 / 250 750 / 1000 Balance 1398.5106 / 2078.5106 -550 / 1528.5106 Weight last 48 hrs Weight 48.988 kg Weight 54.567 kg Physical Exam 2 Const: COMMON NORMALS: no acute distress and alert HENMT: COMMON NORMALS: normocephalic, atraumatic and Normal external nose present HEAD & SCALP: normocephalic and atraumatic FACE & SINUS: normal facial exam and face symmetric NOSE: Normal external nose present Eye: COMMON NORMALS: EOMs intact bilaterally, conjunctivae normal and no scleral icterus CONJUNCTIVA: Yes conjunctivae normal Neck/C-Spine: COMMON NORMALS: no lymphadenopathy and supple GENERAL: Yes tracheostomy present (There is decreased erythema.) Lymph: LYMPHATIC: no lymphadenopathy noted Chest: COMMONS NORMALS: normal inspection of the chest Resp: COMMON NORMALS: normal respiratory effort, No retractions, No use of accessory muscles and clear to auscultation bilaterally AUSCULTATION: clear to auscultation bilaterally Cardio: COMMON NORMALS: regular rate, regular rhythm and No murmurs present (Cardio) RATE: regular rate RHYTHM: regular rhythm GI: COMMON NORMALS: Normal to inspection, nondistended, normoactive bowel sounds present Neuro: SENSORIUM/ORIENTATION: Yes alert Data 04/18/24 03:43 04/18/24 03:43 Micro: Microbiology 04/15/24 11:25 Gram Stain - Final Sputum - Expectorated Sputum Sputum Culture - Final A&P Assessment and plan (1) Neck mass: Impression: 64 yo wm with h/o Squamous Cell Carcinoma of the hypopharynx doing well POD s/p Tracheotomy/PEG placement Plan: - First Trach change tomorrow - The patient may be discharged after trach change if D/C planning complete - Continue Tube feeds - Medical management as per Hospitalist team - We will begin definitive treatment after discharge (2) Tracheostomy in place: Impression: Stable Plan: - Continue trach care - O/W as per the above (3) Dysphagia: Impression: Secondary to hypoharyngeal mass Plan: Continue tube feeds (4) Cellulitis and abscess of face: Impression: Improved on IV Ceftazidime Plan: Continue IV Ceftazidime as per the Hospitalist team Attestations 2 Medical Necessity Statement*: The patient requires inpatient care until first trach change and D/C planning complete. Coding Level of Care Code Acute Code for Chg Fwd Diagnoses Neck mass R22.[address] Z93.0 Dysphagia R13.10 Cellulitis and abscess of face L03.211; L02.01
[2024-04-18] MEDS: LORazepam 2 mg/mL INJ 1 mL IM (08:48)
[2024-04-18] MEDS: ciprofloxacin 400 MG/200 ML PREMIX 200 MG IV ×3 (10:00→23:51)
[2024-04-18] MEDS: folic acid 1 mg Tablet PEG-TUBE (10:01)
[2024-04-18] MEDS: thiamine 100 mg Tablet PEG-TUBE (10:02)
[2024-04-18] MEDS: multivitamin therapeutic Tablet 1 TAB XX (10:02)
[2024-04-18] MEDS: lidocaine 1% 5 ML in potassium chloride premix 100 ML 52.5 ML IV (10:07)
--- NOTE | 2024-04-18 10:10 | PM.PN ---
Subjective Subjective: Patient was seen this morning, he had episodes of agitation early this morning he slept throughout the night, but was quite agitated this morning, during my examination he is in bed, redirectable when asked why he was so upset this morning, he was able to write on a pen and paper that they woke me up at 6:30 AM for blood draws, we discussed stopping recruitment specialist blood draws so he could rest and check his blood work at about 8 or so, he refuses PEG tube feedings last night, we discussed the importance of his nutrition, he did receive Ativan for agitation earlier on this morning but is much more calm Vitals/I&O/Wt Last Vital Signs Temp 97.8 F 04/18/24 07:16 Pulse 87 04/18/24 08:23 Resp 18 04/18/24 08:23 BP 106/53 04/18/24 07:16 Pulse Ox 91 04/18/24 08:23 O2 Del Method Room Air 04/18/24 08:23 O2 Flow Rate 7 04/17/24 20:05 FiO2 28 04/17/24 20:05 04/17/24 04/18/24 04/18/24 22:59 06:59 14:59 Intake Total 1648.5106 / 2328.5106 200 / 2528.5106 Output Total 250 / 250 750 / 1000 Balance 1398.5106 / 2078.5106 -550 / 1528.5106 Weight last 48 hrs Weight 48.988 kg Weight 54.567 kg Physical Exam Const: COMMON NORMALS: no acute distress ORIENTATION/CONSCIOUSNESS: Yes awake, Yes oriented to person and Yes oriented to place OTHER: Tracheostomy in place Resp: COMMON NORMALS: normal respiratory effort, No retractions, No use of accessory muscles and clear to auscultation bilaterally AUSCULTATION: clear to auscultation bilaterally Cardio: COMMON NORMALS: regular rate, regular rhythm, S1 normal heart sound present and S2 normal heart sound present RATE: regular rate RHYTHM: regular rhythm HEART SOUNDS: S1 normal heart sound present and S2 normal heart sound present GI: COMMON NORMALS: Normal to inspection, nondistended, normoactive bowel sounds present and non-tender Extremity: COMMON NORMALS: no pedal edema Neuro: SENSORIUM/ORIENTATION: Yes oriented to person and Yes oriented to place Psych: COMMON NORMALS: mental status grossly normal Data 04/18/24 03:43 04/18/24 03:43 Micro: Microbiology 04/15/24 11:25 Gram Stain - Final Sputum - Expectorated Sputum Sputum Culture - Final A&P Assessment and plan (1) Neck mass: Status post tracheostomy and G-tube placement on 04/13 Lovenox for DVT prophylaxis Currently on bolus tube feeds Monitor for refeeding syndrome, labs ordered (2) Leukocytosis: Concerning for pneumonia, cellulitis (3) Hypomagnesemia: Check magnesium and replace as needed (4) Hypophosphatemia: Check phosphate and other electrolytes (5) Tracheostomy in place: Routine tracheostomy care (6) Refeeding syndrome: - Replace electrolytes -Check potassium, magnesium, phosphorus -Replace IV K this morning (7) Pneumonia: - Will switch to ceftazidime 2 g IV every 8 hours ?continue ciprofloxacin (8) Alcohol abuse with withdrawal: Concern for alcohol withdrawal ? CIWA protocol ? Scheduled Librium 50 every 6 hours ? Neurochecks ? Aspiration precautions -Ativan as needed for agitation, withdrawal -Haldol as needed for agitation Plan Developing mild degree refeeding syndrome, with hypokalemia, hypophosphatemia hypomagnesemia will replace today Concern for cellulitis around tracheostomy site continue ceftazidime, ciprofloxacin Concern for alcohol withdrawal ? CIWA protocol ? Scheduled Librium 50 every 6 hours ? Neurochecks ? Aspiration precautions Attestations Medical Necessity Statement*: Patient requires hospitalization for alcohol withdrawal, cellulitis and pneumonia status post tracheostomy Diagnoses Neck mass R22.1 Leukocytosis D72.829 Hypomagnesemia E83.42 Hypophosphatemia E83.[address] Z93.0 Refeeding syndrome E87.8 Pneumonia J18.9 Alcohol abuse with withdrawal F10.139
--- NOTE | 2024-04-18 13:11 | XRR_ITS ---
PROCEDURE INFORMATION: Exam: XR Abdomen Exam date and time: 04/18/2024 1:28 PM Age: 64 years old Clinical indication: Bloating; Patient HX: Aspiration; Bowel obstruction; Additional info: Aspiration, bowel obstruction TECHNIQUE: Imaging protocol: Radiologic exam of the abdomen. Views: Frontal supine view of the abdomen. 1 View. COMPARISON: 1. CT chest abdpel w/*[id number] 03/03/2024 7:08 PM 2. CR XR chest 1V portable [id number] 04/16/2024 10:04 AM FINDINGS: Tubes, catheters and devices: There is a gastrostomy tube with balloon and tip projected over the distal body of the stomach. Lungs: Interval new bibasilar consolidation is present, consistent with atelectasis, edema, or pneumonia. Gastrointestinal tract: There is no ileus or obstruction. No dilated loops of bowel. No significant colonic stool. Bones/joints: Unremarkable. XR/XR KUB portable [id number] IMPRESSION: 1. Interval new bibasilar consolidation is present, consistent with atelectasis, edema, or pneumonia. 2. There is a gastrostomy tube with balloon and tip projected over the distal body of the stomach. Nonspecific bowel gas pattern. No ileus or obstruction.
[2024-04-18] MEDS: metoclopramide 5 mg/mL SDV 2 mL IVP (14:00)
[2024-04-18] MEDS: morphine 4 mg/mL SDV 1 mL 2 MG IVP (15:48)
--- NOTE | 2024-04-18 16:02 | PC.NURSE ---
1045 Jevity 1.5 360ml bolus with 100ml H2O flush.
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
[2024-04-18] MEDS: enoxaparin 40 mg/0.4 mL Syringe SUBCUT (20:21)
[2024-04-19] VITALS (8 sets, daily range): BP systolic 111–143; BP diastolic 65–80; PULSE 66–84; RESP 13–18; TEMP 36.2–36.7; O2SAT 91–98
[2024-04-19] MEDS: chlordiazePOXIDE 25 mg Capsule 50 MG PEG-TUBE ×2 (03:41→08:37)
[2024-04-19 04:16] LABS: Basophils % 0.5 %; Eosinophils # 0.1 10^3/uL (0.0-0.8); Eosinophils % 0.7 %; Hematocrit 35.5 % (37-53); Lymphocytes # 1.1 10^3/uL (0.8-4.8); Lymphocytes % 15.4 %; Mean Corpuscular HGB Conc 36.9 g/dL (30-55); Mean Corpuscular Hemoglobin 37.3 pg (27-33); Mean Corpuscular Volume 101.1 fl (82-101); Monocytes # 1.4 10^3/uL (0.2-0.9); Monocytes % 18.6 %; Neutrophils # 4.74 10^3/uL (1.8-7.7); Neutrophils % 64.3 %; Nucleated Red Blood Cells % 0 %; Platelet Count 237 10^3/cmm (157-399); Red Blood Count 3.51 10^6/uL (3.85-5.65); Red Cell Distribution Width 10.9 % (12.1-15.1); White Blood Count 7.38 10^3/uL (3.29-11.43)
[2024-04-19 04:40] LABS: Anion Gap 13.8 (5-19); Blood Urea Nitrogen 5 mg/dL (8-23); Calcium 9.5 mg/dL (8.5-10.5); Carbon Dioxide 29 mmol/L (22-29); Chloride 95 mmol/L (98-107); Creatinine Clr Calc Pharmacy 124.0067; Glomerular Filtration Rate 216.6 mL/min (90-130); Glucose 103 mg/dL (65-115); Magnesium 1.7 mg/dL (1.7-2.3); Osmolality Calculated 278 mOsm/kg (285-295); Phosphorus 2.7 mg/dL (2.5-4.5); Sodium 135 mmol/L (136-145)
[2024-04-19 04:50] LABS: Potassium 2.8 mmol/L (3.5-5.1)
--- NOTE | 2024-04-19 05:12 | P.PN_ITS ---
Subjective 2 Subjective: 64 yo wm with a h/o a T4, Stage IV Squam ous Cell Carcinoma of the hypopharynx who is POD #6 s/p Tracheotomy/PEG tube placement. The patient has had peristomal cellulitis and electrolyte imbalances, as well as nutritional issues, but has o/w been doing well. Medications: Reviewed: Yes Vitals/I&O/Wt Last Vital Signs Temp 97.5 F L 04/19/24 03:13 Pulse 82 04/19/24 03:13 Resp 13 04/19/24 03:13 BP 143/80 04/19/24 03:13 Pulse Ox 95 04/19/24 03:13 O2 Del Method Room Air 04/19/24 03:13 O2 Flow Rate 7 04/17/24 20:05 FiO2 28 04/17/24 20:05 04/18/24 04/18/24 04/19/24 14:59 22:59 06:59 Intake Total 765 / 765 200 / 965 200 / 1165 Output Total 350 / 350 300 / 650 Balance 415 / 415 -100 / 315 200 / 515 Weight last 48 hrs Weight 46.992 kg Weight 48.988 kg Physical Exam 2 Const: COMMON NORMALS: no acute distress and alert GENERAL APPEARANCE: c ooperative and frail appearing NUTRITIONAL APPEARANCE: cachectic HENMT: COMMON NORMALS: normocephalic and atraumatic HEAD & SCALP: normal to inspection, normocephalic and atraumatic FACE & SINUS: normal facial exam Eye: COMMON NORMALS: EOMs intact bilaterally, conjunctivae normal and no scleral icterus CONJUNCTIVA: Yes conjunctivae normal Neck/C-Spine: COMMON NORMALS: full ROM and no lymphadenopathy GENERAL: Yes normal visual inspection, Yes trachea midline and Yes tracheostomy present (Improved peristomal erythema.) Chest: COMMONS NORMALS: normal inspection of the chest Resp: COMMON NORMALS: normal respiratory effort, No retractions, No use of accessory muscles and clear to auscultation bilaterally AUSCULTATION: clear to auscultation bilaterally Cardio: COMMON NORMALS: regular rate, regular rhythm and No murmurs present (Cardio) RATE: regular rate RHYTHM: regular rhythm GI: COMMON NORMALS: Normal to inspection, nondistended, normoactive bowel sounds present Neuro: SENSORIUM/ORIENTATION: Yes alert Data 04/19/24 04:02 04/19/24 04:02 A&P Assessment and plan (1) Neck mass: Impression: 64 yo wm with a h/o Squamous Cell Carcinoma of the Hypopharynx who is POD #6 s/p tracheotomy/PEG tube placement. The patient has developed peristomal cellulitis, alcohol withdrawal, and refeeding syndrome. Plan: - First trach change performed today; continue trach care - I will arrange for definitive care of his hypopharyngeal SCCA after d/c - We will d/c the patient when stable medically - Tube feeds as tolerated (2) Dysphagia: See the above (3) History of gastrostomy tube placement: Stable (4) Alcohol abuse with withdrawal: Impression: Stable Plan: as per the Hospitalist team (5) Refeeding syndrome: Impression: Continued Plan: As per the hospitalists team (6) Cellulitis and abscess of face: Impression: Improved on Ceftazidime Plan: As per the Hospitalist team Attestations 2 Medical Necessity Statement*: The patient requires inpatient care until medically stable and d/c planning complete Procedures Procedure Narrative First Tracheotomy Tube Change: The tracheotomy tube was removed and replaced with a #8 Fenestrated, uncuffed Shiley tracheotomy tube without incident. Coding Level of Care Code Acute Code for g Fwd Diagnoses Neck mass R22.1 Dysphagia R13.10 History of gastrostomy tube placement Alcohol abuse with withdrawal F10.139 Refeeding syndrome E87.8 Cellulitis and abscess of face L03.211; L02.01
[2024-04-19] MEDS: potassium chloride oral liq 20 mEq/15 mL UDC 40 MEQ PO (05:31)
[2024-04-19] MEDS: morphine 4 mg/mL SDV 1 mL 2 MG IVP (06:47)
[2024-04-19] MEDS: folic acid 1 mg Tablet PEG-TUBE (08:24)
[2024-04-19] MEDS: thiamine 100 mg Tablet PEG-TUBE (08:24)
[2024-04-19] MEDS: multivitamin therapeutic Tablet 1 TAB XX (08:25)
[2024-04-19] MEDS: potassium chloride ER 20 mEq Tablet PO (08:26)
[2024-04-19] MEDS: ciprofloxacin 400 MG/200 ML PREMIX 200 MG IV ×3 (08:58→23:19)
[2024-04-19] MEDS: cefTAZidime 2,000 mg SDV 2000 MG IVP ×2 (12:00→18:16)
--- NOTE | 2024-04-19 13:52 | P.PN_ITS ---
Subjective 2 Subjective: Patient was seen this morning, is at bedside, he had a good night last night, I was told that he slept well, he was in pain this morning so was given morphine, he is alert awake, but a bit drowsy as he is received morphine, is concerned about taking him home, as he continues to have intermittent episodes of agitation and drowsiness, remains confused, remains encephalopathic, he is afebrile overnight normotensive, can follow commands but remains drowsy Vitals/I&O/Wt Last Vital Signs Temp 97.1 F L 04/19/24 12:00 Pulse 66 04/19/24 12:00 Resp 17 04/19/24 12:00 BP 122/70 04/19/24 12:00 Pulse Ox 98 04/19/24 12:00 O2 Del Method Room Air 04/19/24 09:05 O2 Flow Rate 7 04/17/24 20:05 FiO2 21 04/19/24 09:05 04/18/24 04/19/24 04/19/24 22:59 06:59 14:59 Intake Total 200 / 965 200 / 1165 200 / 200 Output Total 300 / 650 Balance -100 / 315 200 / 515 200 / 200 Weight last 48 hrs Weight 46.992 kg Weight 48.988 kg Physical Exam 2 Const: COMMON NORMALS: no acute distress EXAM LIMITATIONS: altered mental status NUTRITIONAL APPEARANCE: cachectic ORIENTATION/CONSCIOUSNESS: Yes awake, Yes oriented to person and Yes confused; not oriented to place and not oriented to time Neck/C-Spine: OTHER: He tracheostomy, with slight surrounding erythema Resp: COMMON NORMALS: normal respiratory effort, No retractions, No use of accessory muscles and clear to auscultation bilaterally AUSCULTATION: clear to auscultation bilaterally Cardio: COMMON NORMALS: regular rate, regular rhythm, S1 normal heart sound present and S2 normal heart sound present RATE: regular rate RHYTHM: r egular rhythm HEART SOUNDS: S1 normal heart sound present and S2 normal heart sound present GI: COMMON NORMALS: Normal to inspection, nondistended, normoactive bowel sounds present and non-tender OTHER: PEG tube in place Extremity: COMMON NORMALS: no pedal edema Neuro: SENSORIUM/ORIENTATION: Yes oriented to person, No oriented to place and No oriented to time Psych: COMMON NORMALS: mental status grossly normal Data 04/19/24 04:02 04/19/24 04:02 A&P Assessment and plan (1) Neck mass: Status post tracheostomy and G-tube placement on 04/13 Status post change out inner cannula today Lovenox for DVT prophylaxis Currently on bolus tube feeds, tube feeds were held yesterday evening due to increased residuals, vomiting of his tube feeds, KUB within normal limits, he had a large bowel movement last night, will resume bolus tube feedings at an adjusted amount after discussing with dietary, Monitor for refeeding syndrome, hypokalemia replaced this morning, recheck potassium as an phosphorus levels and magnesium levels this afternoon (2) Leukocytosis: Concerning for pneumonia, cellulitis (3) Hypomagnesemia: Check magnesium and replace as needed (4) Hypophosphatemia: Check phosphate and other electrolytes (5) Tracheostomy in place: Routine tracheostomy care (6) Refeeding syndrome: - Replace electrolytes -Check potassium, magnesium, phosphorus -Replace K this morning ? Recheck electrolytes this afternoon (7) Pneumonia: - Will switch to ceftazidime 2 g IV every 8 hours ?continue ciprofloxacin (8) Alcohol abuse with withdrawal: Concern for alcohol withdrawal ? CIWA protocol ? Scheduled Librium 50 every 6 hours, due to drowsiness adjust dose to 25 mg every 6 hours ? Neurochecks ? Aspiration precautions -Ativan as needed for agitation, withdrawal -Haldol as needed for agitation Plan Developing mild degree refeeding syndrome, with hypokalemia, hypophosphatemia hypomagnesemia will replace today Concern for cellulitis around tracheostomy site continue ceftazidime, ciprofloxacin Concern for alcohol withdrawal ? CIWA protocol ? Scheduled Librium 25 every 6 hours ? Neurochecks ? Aspiration precautions Attestations 2 Medical Necessity Statement*: Patient requires hospitalization for alcohol withdrawal, refeeding syndrome, Diagnoses Neck mass R22.1 Leukocytosis D72.829 Hypomagnesemia E83.42 Hypophosphatemia E83.[address] Z93.0 Refeeding syndrome E87.8 Pneumonia J18.9 Alcohol abuse with withdrawal F10.139
[2024-04-19 14:34] LABS: Anion Gap 14.4 (5-19); Blood Urea Nitrogen 5 mg/dL (8-23); Calcium 9.1 mg/dL (8.5-10.5); Carbon Dioxide 27 mmol/L (22-29); Chloride 98 mmol/L (98-107); Creatinine Clr Calc Pharmacy 99.2053; Glomerular Filtration Rate 167.4 mL/min (90-130); Glucose 103 mg/dL (65-115); Magnesium 1.7 mg/dL (1.7-2.3); Osmolality Calculated 280 mOsm/kg (285-295); Potassium 3.4 mmol/L (3.5-5.1); Sodium 136 mmol/L (136-145)
[2024-04-19] MEDS: chlordiazePOXIDE 25 mg Capsule PEG-TUBE ×2 (17:05→23:11)
[2024-04-19] MEDS: potassium chloride oral liq 20 mEq/15 mL UDC 40 MEQ PEG-TUBE (17:05)
[2024-04-19] MEDS: famotidine 20 mg/2 mL INJ IVP (17:05)
[2024-04-19] MEDS: phosphorus 250 mg Tablet PEG-TUBE (17:05)
[2024-04-19] MEDS: metoclopramide 5 mg/mL SDV 2 mL IVP (18:16)
[2024-04-19] MEDS: magnesium lactate 84 mg Tablet XX (18:16)
[2024-04-19] MEDS: enoxaparin 40 mg/0.4 mL Syringe SUBCUT (20:23)
[2024-04-20] VITALS (8 sets, daily range): BP systolic 106–131; BP diastolic 65–78; PULSE 72–97; RESP 15–18; TEMP 36.4–36.7; O2SAT 91–94
[2024-04-20] MEDS: cefTAZidime 2,000 mg SDV 2000 MG IVP ×3 (03:34→21:19)
[2024-04-20] MEDS: famotidine 20 mg/2 mL INJ IVP ×2 (03:42→16:29)
[2024-04-20] MEDS: chlordiazePOXIDE 25 mg Capsule PEG-TUBE ×4 (04:43→21:30)
[2024-04-20 05:08] LABS: Basophils % 0.4 %; Eosinophils # 0.1 10^3/uL (0.0-0.8); Eosinophils % 1.2 %; Hematocrit 35.1 % (37-53); Lymphocytes # 1.3 10^3/uL (0.8-4.8); Lymphocytes % 17.3 %; Mean Corpuscular HGB Conc 36.5 g/dL (30-55); Mean Corpuscular Hemoglobin 36.9 pg (27-33); Mean Corpuscular Volume 101.2 fl (82-101); Mean Platelet Volume 9.9 fL (7.4-10.4); Monocytes # 1.2 10^3/uL (0.2-0.9); Monocytes % 15.6 %; Neutrophils # 4.89 10^3/uL (1.8-7.7); Neutrophils % 64.6 %; Nucleated Red Blood Cells % 0 %; Platelet Count 280 10^3/cmm (157-399); Red Blood Count 3.47 10^6/uL (3.85-5.65); Red Cell Distribution Width 10.7 % (12.1-15.1); White Blood Count 7.57 10^3/uL (3.29-11.43)
[2024-04-20 05:37] LABS: Anion Gap 15.5 (5-19); Blood Urea Nitrogen 6 mg/dL (8-23); Calcium 9.1 mg/dL (8.5-10.5); Carbon Dioxide 25 mmol/L (22-29); Chloride 97 mmol/L (98-107); Creatinine Clr Calc Pharmacy 99.2053; Glomerular Filtration Rate 167.4 mL/min (90-130); Glucose 100 mg/dL (65-115); Osmolality Calculated 276 mOsm/kg (285-295); Potassium 3.5 mmol/L (3.5-5.1); Sodium 134 mmol/L (136-145)
[2024-04-20 05:38] LABS: Magnesium 1.6 mg/dL (1.7-2.3); Phosphorus 2.7 mg/dL (2.5-4.5)
[2024-04-20] MEDS: thiamine 100 mg Tablet PEG-TUBE (09:42)
[2024-04-20] MEDS: multivitamin therapeutic Tablet 1 TAB XX (09:42)
[2024-04-20] MEDS: folic acid 1 mg Tablet PEG-TUBE (09:42)
[2024-04-20] MEDS: potassium chloride oral liq 20 mEq/15 mL UDC PEG-TUBE (09:42)
[2024-04-20] MEDS: phosphorus 250 mg Tablet PEG-TUBE ×2 (09:42→16:28)
[2024-04-20] MEDS: ciprofloxacin 400 MG/200 ML PREMIX 200 MG IV ×2 (09:42→16:30)
[2024-04-20] MEDS: magnesium lactate 84 mg Tablet XX ×2 (09:42→16:28)
--- NOTE | 2024-04-20 11:17 | P.PN_ITS ---
Subjective 2 Subjective: Patient was seen this morning, with physical therapy at bedside he is alert to person, can follow commands, currently has a gait blanket on, is quite weak up to the side of the bed, requires person assist to get up into a standing position, is unsteady on his feet, I looked at his back, there is stage I deep tissue injury, Vitals/I&O/Wt Last Vital Signs Temp 97.7 F 04/20/24 08:00 Pulse 72 04/20/24 09:19 Resp 18 04/20/24 09:19 BP 126/73 04/20/24 08:00 Pulse Ox 92 04/20/24 09:19 O2 Del Method Room Air 04/20/24 09:19 O2 Flow Rate 7 04/17/24 20:05 FiO2 21 04/19/24 09:05 04/19/24 04/20/24 04/20/24 22:59 06:59 14:59 Intake Total 300 / 500 300 / 800 Output Total 15 Balance 280 / 480 285 / 765 Weight last 48 hrs Weight 47.797 kg Weight 46.992 kg Physical Exam 2 Const: COMMON NORMALS: no acute distress NUTRITIONAL APPEARANCE: cachectic OTHER: Moderate to severe protein calorie malnutrition, muscle wasting bilateral thighs, bilateral arms, temporal muscle wasting, diminished fat pad under bilateral clavicles, ribs HENMT: OTHER: Tracheostomy site, with erythema, drainage around trach site Resp: COMMON NORMALS: normal respiratory effort, No retractions, No use of accessory muscles and clear to auscultation bilaterally AUSCULTATION: clear to auscultation bilaterally Cardio: COMMON NORMALS: regular rate, regular rhythm, S1 normal heart sound present and S2 normal heart sound present RATE: regular rate RHYTHM: r egular rhythm HEART SOUNDS: S1 normal heart sound present and S2 normal heart sound present GI: COMMON NORMALS: Normal to inspection, nondistended, normoactive bowel sounds present and non-tender Extremity: COMMON NORMALS: no pedal edema Neuro: OTHER: Patient is quite withdrawn Data 04/20/24 04:52 04/20/24 04:52 A&P Assessment and plan (1) Neck mass: Status post tracheostomy and G-tube placement on 04/13 Status post change out inner cannula today Lovenox for DVT prophylaxis Currently on bolus tube feeds, tube feeds were held yesterday evening due to increased residuals, vomiting of his tube feeds, KUB within normal limits, he had a large bowel movement last night, will resume bolus tube feedings at an adjusted amount after discussing with dietary, Monitor for refeeding syndrome, hypokalemia replaced this morning, recheck potassium as an phosphorus levels and magnesium levels this afternoon (2) Leukocytosis: Concerning for pneumonia, cellulitis (3) Hypomagnesemia: Check magnesium and replace as needed (4) Hypophosphatemia: Check phosphate and other electrolytes (5) Tracheostomy in place: Routine tracheostomy care (6) Refeeding syndrome: - Replace electrolytes -Check potassium, magnesium, phosphorus -Replace K this morning ? Recheck electrolytes this afternoon (7) Pneumonia: - Will switch to ceftazidime 2 g IV every 8 hours ?continue ciprofloxacin (8) Alcohol abuse with withdrawal: Concern for alcohol withdrawal ? CIWA protocol ? Scheduled Librium 50 every 6 hours, due to drowsiness adjust dose to 25 mg every 6 hours ? Neurochecks ? Aspiration precautions -Ativan as needed for agitation, withdrawal -Haldol as needed for agitation (9) Severe protein-calorie malnutrition: Severe protein calorie malnutrition, physical deconditioning, muscle wasting -PT OT -Dietary eval -Receiving bolus tube feedings (10) Physical deconditioning: (11) Muscle wasting: Plan Developing mild degree refeeding syndrome, with hypokalemia, hypophosphatemia hypomagnesemia will replace today Concern for cellulitis around tracheostomy site continue ceftazidime, ciprofloxacin Concern for alcohol withdrawal ? CIWA protocol ? Scheduled Librium 25 every 6 hours ? Neurochecks ? Aspiration precautions Plan for today PT OT, speech therapy eval, physical deconditioning, will monitor closely, continue IV antibiotics, Attestations 2 Medical Necessity Statement*: Patient requires hospitalization for severe protein, nutrition, physical deconditioning, muscle wasting, cellulitis of surgical site, pneumonia Diagnoses Neck mass R22.1 Leukocytosis D72.829 Hypomagnesemia E83.42 Hypophosphatemia E83.[address] Z93.0 Refeeding syndrome E87.8 Pneumonia J18.9 Alcohol abuse with withdrawal F10.139 Severe protein-calorie malnutrition E43 Physical deconditioning R53.81 Muscle wasting M62.50
[2024-04-20] MEDS: morphine 4 mg/mL SDV 1 mL 1 MG IVP (11:50)
[2024-04-20] MEDS: fluoxetine 20 mg Capsule PEG-TUBE (11:56)
[2024-04-20] MEDS: enoxaparin 40 mg/0.4 mL Syringe SUBCUT ×2 (21:26→21:46)
[2024-04-21] VITALS (10 sets, daily range): BP systolic 103–137; BP diastolic 62–79; PULSE 81–103; RESP 16–20; TEMP 36.3–36.8; O2SAT 92–97
[2024-04-21] MEDS: ciprofloxacin 400 MG/200 ML PREMIX 200 MG IV ×3 (00:16→16:23)
[2024-04-21] MEDS: haloperidol inj 5 mg/mL INJ 1 mL 1 MG IM ×2 (01:25→06:39)
[2024-04-21] MEDS: famotidine 20 mg/2 mL INJ IVP ×2 (04:24→16:23)
[2024-04-21] MEDS: cefTAZidime 2,000 mg SDV 2000 MG IVP ×3 (04:30→21:54)
[2024-04-21 05:54] LABS: Basophils # 0.1 10^3/uL (0.0-0.1); Basophils % 0.6 %; Eosinophils # 0.1 10^3/uL (0.0-0.8); Eosinophils % 1.1 %; Hematocrit 35.9 % (37-53); Lymphocytes # 1.3 10^3/uL (0.8-4.8); Lymphocytes % 14.8 %; Mean Corpuscular HGB Conc 36.2 g/dL (30-55); Mean Corpuscular Hemoglobin 37.1 pg (27-33); Mean Corpuscular Volume 102.6 fl (82-101); Mean Platelet Volume 9.9 fL (7.4-10.4); Monocytes # 1.2 10^3/uL (0.2-0.9); Monocytes % 13.4 %; Neutrophils # 6.15 10^3/uL (1.8-7.7); Neutrophils % 69.2 %; Nucleated Red Blood Cells % 0 %; Platelet Count 335 10^3/cmm (157-399); Red Cell Distribution Width 10.9 % (12.1-15.1); White Blood Count 8.88 10^3/uL (3.29-11.43)
[2024-04-21 06:23] LABS: Anion Gap 15.6 (5-19); Blood Urea Nitrogen 5 mg/dL (8-23); Calcium 8.9 mg/dL (8.5-10.5); Carbon Dioxide 24 mmol/L (22-29); Chloride 101 mmol/L (98-107); Creatinine Clr Calc Pharmacy 140.5441; Glomerular Filtration Rate 216.6 mL/min (90-130); Glucose 118 mg/dL (65-115); Osmolality Calculated 282 mOsm/kg (285-295); Potassium 3.6 mmol/L (3.5-5.1); Sodium 137 mmol/L (136-145)
[2024-04-21 06:24] LABS: Magnesium 1.7 mg/dL (1.7-2.3); Phosphorus 3.9 mg/dL (2.5-4.5)
--- NOTE | 2024-04-21 06:49 | PC.NURSE ---
around 0635 this nurse was notified the patient was combative with staff. multiple staff responded to room and attempted to redirect patient. redirection attempts failed, so this nurse administered 1mg haldol im per orders. patient calm after roughly 5 minutes and now resting calmly in bed, trach suctioned and patient was repositioned. PSA at bedside
[2024-04-21] MEDS: thiamine 100 mg Tablet PEG-TUBE (09:25)
[2024-04-21] MEDS: magnesium lactate 84 mg Tablet XX ×2 (09:25→18:09)
[2024-04-21] MEDS: folic acid 1 mg Tablet PEG-TUBE (09:25)
[2024-04-21] MEDS: multivitamin therapeutic Tablet 1 TAB XX (09:25)
[2024-04-21] MEDS: phosphorus 250 mg Tablet PEG-TUBE ×2 (09:25→18:09)
[2024-04-21] MEDS: fluoxetine 20 mg Capsule PEG-TUBE (09:25)
--- NOTE | 2024-04-21 12:29 | CTR_ITS ---
PROCEDURE INFORMATION: Exam: CT Head Without Contrast Exam date and time: 04/21/2024 5:14 PM Age: 64 years old Clinical indication: Altered mental status/memory loss; Additional info: AMS TECHNIQUE: Imaging protocol: Computed tomography of the head without contrast. Radiation optimization: All CT scans at this facility use at least one of these dose optimization techniques: automated exposure control; mA and/or kV adjustment per patient size (includes targeted exams where dose is matched to clinical indication); or iterative reconstruction. COMPARISON: MR orbit face neck wo/w* [id number] 04/09/2024 10:36 AM RADIATION DOSE METRICS: Total DLP (mGy-cm): 1079 FINDINGS: Brain: No intracranial hemorrhage. There is global parenchymal volume loss. Periventricular white matter hypoattenuation is nonspecific but most likely due to small vessel disease. No evidence of acute territorial infarct or cerebral edema. No mass effect or midline shift. Cerebral ventricles: Prominent ventricles likely secondary to volume loss. Paranasal sinuses: Visualized sinuses are unremarkable. No fluid levels. Mastoid air cells: Visualized mastoid air cells are well aerated. Bones: Unremarkable. No acute fracture. Soft tissues: Unremarkable. CT/CT head wo con* [id number] IMPRESSION: No acute intracranial findings.
[2024-04-21] MEDS: chlordiazePOXIDE 25 mg Capsule PEG-TUBE ×2 (13:38→21:54)
[2024-04-21] MEDS: metoclopramide 5 mg/mL SDV 2 mL IVP (14:12)
[2024-04-21 14:51] LABS: Ammonia 33 umol/L (16-60)
--- NOTE | 2024-04-21 15:31 | PM.PN ---
Subjective Subjective: Patient was seen this morning, is at bedside, he does awaken but falls back asleep overnight he had episodes of agitation requiring Haldol twice, normotensive overnight, afebrile, Vitals/I&O/Wt Last Vital Signs Temp 98.1 F 04/21/24 11:50 Pulse 88 04/21/24 11:50 Resp 18 04/21/24 11:50 BP 109/69 04/21/24 11:50 Pulse Ox 95 04/21/24 11:50 O2 Del Method Trach Collar 04/21/24 11:50 O2 Flow Rate 7 04/17/24 20:05 FiO2 21 04/21/24 07:38 04/21/24 04/21/24 04/21/24 06:59 14:59 22:59 Intake Total 200 / 720 200 / 200 Output Total 200 / 400 Balance 0 / 320 200 / 200 Weight last 48 hrs Weight 51.029 kg Weight 47.797 kg Physical Exam Const: COMMON NORMALS: no acute distress EXAM LIMITATIONS: altered mental status ORIENTATION/CONSCIOUSNESS: Yes awake, Yes oriented to person and Yes confused; not oriented to place and not oriented to time Resp: COMMON NORMALS: normal respiratory effort, No retractions, No use of accessory muscles and clear to auscultation bilaterally AUSCULTATION: clear to auscultation bilaterally Cardio: COMMON NORMALS: regular rate, regular rhythm, S1 normal heart sound present and S2 normal heart sound present RATE: regular rate RHYTHM: regular rhythm HEART SOUNDS: S1 normal heart sound present and S2 normal heart sound present GI: COMMON NORMALS: Normal to inspection, nondistended, normoactive bowel sounds present and non-tender Extremity: COMMON NORMALS: no pedal edema Neuro: SENSORIUM/ORIENTATION: Yes oriented to person, No oriented to place and No oriented to time Data 04/21/24 05:34 04/21/24 05:34 A&P Assessment and plan (1) Neck mass: Status post tracheostomy and G-tube placement on 04/13 Status post change out inner cannula today Lovenox for DVT prophylaxis Currently on bolus tube feeds, tube feeds check residuals, Reglan as needed Monitor for refeeding syndrome, hypokalemia replaced this morning, recheck potassium as an phosphorus levels and magnesium levels this afternoon (2) Leukocytosis: Concerning for pneumonia, cellulitis (3) Hypomagnesemia: Check magnesium and replace as needed (4) Hypophosphatemia: Check phosphate and other electrolytes (5) Tracheostomy in place: Routine tracheostomy care (6) Refeeding syndrome: - Replace electrolytes -Check potassium, magnesium, phosphorus -Replace K this morning ? Recheck electrolytes this afternoon (7) Pneumonia: - ceftazidime 2 g IV every 8 hours ?continue ciprofloxacin (8) Alcohol abuse with withdrawal: Concern for alcohol withdrawal ? [facility] protocol ? Scheduled Librium 25 every 8 hours, ? Aspiration precautions -Ativan as needed for agitation, withdrawal -Haldol as needed for agitation (9) Severe protein-calorie malnutrition: Severe protein calorie malnutrition, physical deconditioning, muscle wasting -PT OT -Dietary eval -Receiving bolus tube feedings (10) Physical deconditioning: (11) Muscle wasting: (12) Acute encephalopathy: - Acute encephalopathy -With deconditioning -Likely a combination of alcohol withdrawals, -Prolonged hospitalization -Some degree related to polypharmacy -For now continue to monitor mentation - Check ammonia levels -CT of the head Plan e refeeding syndrome, with hypokalemia, hypophosphatemia hypomagnesemia will replace today Concern for cellulitis around tracheostomy site continue ceftazidime, ciprofloxacin Plan for today CT head, ammonia levels, monitor mentation closely, IV antibiotics Attestations Medical Necessity Statement*: Patient requires hospitalization for acute encephalopathy, deconditioning Diagnoses Neck mass R22.1 Leukocytosis D72.829 Hypomagnesemia E83.42 Hypophosphatemia E83.[address] Z93.0 Refeeding syndrome E87.8 Pneumonia J18.9 Alcohol abuse with withdrawal F10.139 Severe protein-calorie malnutrition E43 Physical deconditioning R53.81 Muscle wasting M62.50 Acute encephalopathy G93.40
[2024-04-21] MEDS: LORazepam 2 mg/mL INJ 1 mL IVP (16:24)
--- NOTE | 2024-04-21 18:40 | ECG_ITS ---
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 Measurements Intervals [place] Rate: 79 P: -18 DC: 109 QRS: 21 QRSD: 95 T: 19 QT: 412 QTc: 475 Interpretive Statements SINUS RHYTHM WITH SHORT DC INTERVAL POSSIBLE RIGHT VENTRICULAR CONDUCTION DELAY [RSR (QR) IN V1/V2] ST ELEVATION CONSISTENT WITH INJURY, PERICARDITIS, OR EARLY REPOLARIZATION [ST ELEVATION W/O NORMALLY INFLECTED T-WAVE] Compared to ECG 06/09/2015 23:33:27 Short DC interval now present ST (T wave) deviation now present Early repolarization now present Electronically Signed On 04-22-2024 0:21:12 CDT by Hannah Mcgarry M.D. [id number]
[2024-04-21 20:35] LABS: Troponin(5th) Baseline 8 ng/L (0-15)
--- NOTE | 2024-04-21 21:42 | ECG_ITS ---
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 Measurements Intervals [place] Rate: 100 P: 53 [place]: 120 QRS: 26 QRSD: 90 T: 57 QT: 353 QTc: 457 Interpretive Statements SINUS TACHYCARDIA POSSIBLE RIGHT VENTRICULAR CONDUCTION DELAY [RSR (QR) IN V1/V2] Compared to ECG 04/21/2024 18:40:43 Sinus rhythm no longer present Short OK interval no longer present ST (T wave) deviation no longer present Early repolarization no longer present Electronically Signed On 04-22-2024 8:05:06 CDT by Beni Ramsey M.D. [id number]
[2024-04-21] MEDS: LORazepam 2 mg Tablet PEG-TUBE (22:23)
[2024-04-22] VITALS (12 sets, daily range): BP systolic 100–150; BP diastolic 60–91; PULSE 60–103; RESP 15–20; TEMP 36.3–36.9; O2SAT 93–96
[2024-04-22] MEDS: ciprofloxacin 400 MG/200 ML PREMIX 200 MG IV ×2 (00:09→08:45)
--- NOTE | 2024-04-22 00:56 | ECG_ITS ---
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 Measurements Intervals [place] Rate: 91 P: 57 W[place]: 137 QRS: 20 QRSD: 90 T: 43 QT: 358 QTc: 442 Interpretive Statements SINUS RHYTHM POSSIBLE RIGHT VENTRICULAR CONDUCTION DELAY [RSR (QR) IN V1/V2] Compared to ECG 04/21/2024 21:42:37 Sinus tachycardia no longer present Electronically Signed On 04-22-2024 8:04:40 CDT by Beni Ramsey M.D. [id number]
[2024-04-22 02:58] LABS: Basophils % 0.3 %; Eosinophils # 0.1 10^3/uL (0.0-0.8); Eosinophils % 0.5 %; Hematocrit 35.6 % (37-53); Lymphocytes # 1.2 10^3/uL (0.8-4.8); Lymphocytes % 10.7 %; Mean Corpuscular HGB Conc 36.5 g/dL (30-55); Mean Corpuscular Hemoglobin 36.8 pg (27-33); Mean Corpuscular Volume 100.8 fl (82-101); Mean Platelet Volume 9.9 fL (7.4-10.4); Monocytes # 1.2 10^3/uL (0.2-0.9); Monocytes % 10.6 %; Neutrophils # 8.83 10^3/uL (1.8-7.7); Neutrophils % 76.7 %; Nucleated Red Blood Cells % 0 %; Platelet Count 374 10^3/cmm (157-399); Red Blood Count 3.53 10^6/uL (3.85-5.65); Red Cell Distribution Width 10.9 % (12.1-15.1); White Blood Count 11.52 10^3/uL (3.29-11.43)
[2024-04-22 03:08] LABS: Troponin 5 6HR 11.22 ng/L (0-15); Troponin 5 6HR Delta 3.22 ng/L (0-12)
[2024-04-22 03:09] LABS: Anion Gap 14.7 (5-19); Blood Urea Nitrogen 6 mg/dL (8-23); Calcium 8.8 mg/dL (8.5-10.5); Carbon Dioxide 24 mmol/L (22-29); Chloride 98 mmol/L (98-107); Creatinine Clr Calc Pharmacy 115.1645; Glomerular Filtration Rate 167.4 mL/min (90-130); Glucose 114 mg/dL (65-115); Osmolality Calculated 274 mOsm/kg (285-295); Potassium 3.7 mmol/L (3.5-5.1); Sodium 133 mmol/L (136-145)
[2024-04-22 03:10] LABS: Magnesium 1.7 mg/dL (1.7-2.3); Phosphorus 3.5 mg/dL (2.5-4.5)
[2024-04-22] MEDS: cefTAZidime 2,000 mg SDV 2000 MG IVP (04:53)
[2024-04-22] MEDS: famotidine 20 mg/2 mL INJ IVP ×2 (04:53→16:25)
[2024-04-22] MEDS: chlordiazePOXIDE 25 mg Capsule PEG-TUBE (04:54)
[2024-04-22] MEDS: acetaminophen 325 mg Tablet 650 MG PEG-TUBE ×2 (05:08→21:57)
[2024-04-22] MEDS: thiamine 100 mg Tablet PEG-TUBE (08:50)
[2024-04-22] MEDS: multivitamin therapeutic Tablet 1 TAB XX (08:50)
[2024-04-22] MEDS: folic acid 1 mg Tablet PEG-TUBE (08:50)
[2024-04-22] MEDS: magnesium lactate 84 mg Tablet XX ×2 (08:50→18:02)
[2024-04-22] MEDS: phosphorus 250 mg Tablet PEG-TUBE ×2 (08:50→18:02)
[2024-04-22] MEDS: fluoxetine 20 mg Capsule PEG-TUBE (08:50)
--- NOTE | 2024-04-22 12:15 | P.PN_ITS ---
Subjective 2 Subjective: Patient was seen this morning, according to nursing staff he did have a difficult night, this morning he is alert to person, to place, not to time, he is able to communicate with me, by squeezing my fingers, he follows all commands, no focal weakness, moves all extremities, equal strength has more generalized weakness, is withdrawn, we discussed discontinuing his Librium as I am worried that it is over sedating him, will switch to Zyprexa, to help with his agitation during the nighttime, we discussed with nursing staff sitting him up into a chair, continue PT OT, patient is able to nod yes and no to questions, able to follow commands, Vitals/I&O/Wt Last Vital Signs Temp 97.6 F 04/22/24 08:00 Pulse 71 04/22/24 08:00 Resp 18 04/22/24 08:00 BP 113/60 04/22/24 08:00 Pulse Ox 95 04/22/24 08:00 O2 Del Method Trach Collar 04/22/24 04:00 O2 Flow Rate 7 04/17/24 20:05 FiO2 21 04/21/24 07:38 04/21/24 04/22/24 04/22/24 22:59 06:59 14:59 Intake Total 300 / 500 200 / 700 200 / 200 Output Total 400 / 400 Balance -100 / 100 200 / 300 200 / 200 Weight last 48 hrs Weight 50.122 kg Weight 51.029 kg Physical Exam 2 Const: COMMON NORMALS: no acute distress GENERAL APPEARANCE: ill appearing and frail appearing NUTRITIONAL APPEARANCE: thin O RIENTATION/CONSCIOUSNESS: Yes awake, Yes oriented to person and Yes oriented to place; not oriented to time Neck/C-Spine: COMMON NORMALS: no JVD Resp: COMMON NORMALS: normal respiratory effort, No retractions, No use of accessory muscles and clear to auscultation bilaterally AUSCULTATION: clear to auscultation bilaterally Cardio: COMMON NORMALS: no JVD, regular rate, regular rhythm, S1 normal heart sound present and S2 normal heart sound present RATE: regular rate RHYTHM: regular rhythm HEART SOUNDS: S1 normal heart sound present and S2 normal heart sound present GI: COMMON NORMALS: Normal to inspection, nondistended, normoactive bowel sounds present and non-tender Extremity: COMMON NORMALS: no pedal edema Neuro: SENSORIUM/ORIENTATION: Yes oriented to person, Yes oriented to place and No oriented to time Data 04/22/24 02:37 04/22/24 02:37 A&P Assessment and plan (1) Neck mass: Status post tracheostomy and G-tube placement on 04/13 Status post change out inner cannula today Lovenox for DVT prophylaxis Currently on bolus tube feeds, tube feeds check residuals, Reglan as needed Monitor for refeeding syndrome, resolving (2) Leukocytosis: Concerning for pneumonia, cellulitis (3) Hypomagnesemia: Check magnesium and replace as needed (4) Hypophosphatemia: Check phosphate and other electrolytes (5) Tracheostomy in place: Routine tracheostomy care (6) Refeeding syndrome: - Replace electrolytes -Check potassium, magnesium, phosphorus - (7) Pneumonia: - ceftazidime 2 g IV every 8 hours ?continue ciprofloxacin (8) Alcohol abuse with withdrawal: Concern for alcohol withdrawal, out of window ? CIWA protocol ? stop librium due to oversedation ? Aspiration precautions (9) Severe protein-calorie malnutrition: Severe protein calorie malnutrition, physical deconditioning, muscle wasting -PT OT -Dietary eval -Receiving bolus tube feedings (10) Physical deconditioning: (11) Muscle wasting: (12) Acute encephalopathy: - Acute encephalopathy -With deconditioning -Likely a combination of alcohol withdrawals, out of window -Prolonged hospitalization -Some degree related to polypharmacy -some degree of wernickie encephalopathy related to alcoholism -cellulitis and pneumonia, resolving -For now continue to monitor mentation - Check ammonia levels within normal limits -CT of the head within normal limits Plan Plan for today Attestations 2 Medical Necessity Statement*: Plavix transition off IV antibiotics, stop Librium, switch to Zyprexa monitor mentation up out of bed, continue bolus tube feedings, monitor trach site Diagnoses Neck mass R22.1 Leukocytosis D72.829 Hypomagnesemia E83.42 Hypophosphatemia E83.[address] Z93.0 Refeeding syndrome E87.8 Pneumonia J18.9 Alcohol abuse with withdrawal F10.139 Severe protein-calorie malnutrition E43 Physical deconditioning R53.81 Muscle wasting M62.50 Acute encephalopathy G93.40
[2024-04-22] MEDS: morphine 4 mg/mL SDV 1 mL 1 MG IVP (13:14)
[2024-04-22] MEDS: enoxaparin 40 mg/0.4 mL Syringe SUBCUT (21:58)
[2024-04-22] MEDS: OLANZapine 5 mg ODT PEG-TUBE (21:58)
[2024-04-23] VITALS (12 sets, daily range): BP systolic 101–113; BP diastolic 66–70; PULSE 78–116; RESP 17–19; TEMP 36.3–36.6; O2SAT 93–99
--- NOTE | 2024-04-23 03:32 | PC.NURSE ---
pt coughing with moderate result, secretions suctioned and mouth suctioned, pt attempting to sit on side of bed, staff assisted, pt able to answer yes or no questions and able to mouth some words, not all staff able to understand. when nurse suctioned pt mouth and asked pt if that felt better, pt answered maybe the sound more of whisper sound than pt's actual voice. pt attempting to stand up, walker placed in front of pt and pt stood up with minimal assist from staff. pt stood beside the bed for a few minutes and tried to take steps, unsuccessful but pt remained standing. pt sat back on side of bed, more productive cough, . nurse asked pt if he feels the need to be deep suctioned and pt nodded head and mouthed yes . pt began to lay back and nurse offered to help but pt shook head declining help. pt able to bring both legs on the bed and move self up on the bed independently. pt more awake and able to keep eyes open longer
[2024-04-23] MEDS: levoFLOXacin 750 mg Tablet PEG-TUBE (05:01)
[2024-04-23] MEDS: famotidine 20 mg/2 mL INJ IVP ×2 (05:01→16:41)
[2024-04-23] MEDS: acetaminophen 325 mg Tablet 650 MG PEG-TUBE (05:02)
[2024-04-23 05:13] LABS: Basophils # 0.1 10^3/uL (0.0-0.1); Basophils % 0.8 %; Eosinophils # 0.1 10^3/uL (0.0-0.8); Eosinophils % 1.2 %; Hematocrit 42.5 % (37-53); Lymphocytes # 2.2 10^3/uL (0.8-4.8); Lymphocytes % 20.1 %; Mean Corpuscular HGB Conc 34.1 g/dL (30-55); Mean Corpuscular Hemoglobin 36.4 pg (27-33); Mean Corpuscular Volume 106.8 fl (82-101); Mean Platelet Volume 10.1 fL (7.4-10.4); Monocytes # 1.2 10^3/uL (0.2-0.9); Monocytes % 10.6 %; Neutrophils # 7.11 10^3/uL (1.8-7.7); Neutrophils % 65.9 %; Nucleated Red Blood Cells % 0 %; Platelet Count 413 10^3/cmm (157-399); Red Blood Count 3.98 10^6/uL (3.85-5.65); Red Cell Distribution Width 11.2 % (12.1-15.1)
[2024-04-23 05:39] LABS: Blood Urea Nitrogen 10 mg/dL (8-23); Calcium 9.4 mg/dL (8.5-10.5); Carbon Dioxide 22 mmol/L (22-29); Chloride 100 mmol/L (98-107); Creatinine Clr Calc Pharmacy 114.3986; Glomerular Filtration Rate 167.4 mL/min (90-130); Glucose 98 mg/dL (65-115); Osmolality Calculated 283 mOsm/kg (285-295); Sodium 137 mmol/L (136-145)
[2024-04-23 05:41] LABS: Anion Gap 18.7 (5-19); Potassium 3.7 mmol/L (3.5-5.1)
[2024-04-23] MEDS: morphine 4 mg/mL SDV 1 mL 1 MG IVP (09:29)
[2024-04-23] MEDS: OLANZapine 5 mg ODT PEG-TUBE ×2 (09:34→20:21)
[2024-04-23] MEDS: fluoxetine 20 mg Capsule PEG-TUBE (09:34)
[2024-04-23] MEDS: phosphorus 250 mg Tablet PEG-TUBE ×2 (09:34→17:39)
[2024-04-23] MEDS: folic acid 1 mg Tablet PEG-TUBE (09:34)
[2024-04-23] MEDS: thiamine 100 mg Tablet PEG-TUBE (09:34)
[2024-04-23] MEDS: magnesium lactate 84 mg Tablet XX ×2 (09:34→17:39)
[2024-04-23] MEDS: multivitamin therapeutic Tablet 1 TAB XX (09:34)
--- NOTE | 2024-04-23 16:10 | P.PN_ITS ---
Subjective 2 Subjective: According to nursing staff patient did not have episodes of agitation during the night, he went to sleep early, he did wake up a couple of times, but slept throughout most of the night no episodes of agitation this morning, he is seen sitting in the chair, working with physical therapy he is alert to person, to place, not to time he follows commands, were able to communicate with him by having him nod to yes or no questions, having him squeeze my fingers to show that he understands, continues to have generalized weakness, but follows commands, does complain of lower back pain, no abdominal pain complaints, Vitals/I&O/Wt Last Vital Signs Temp 97.4 F L 04/23/24 12:00 Pulse 93 04/23/24 12:00 Resp 18 04/23/24 12:00 BP 101/69 04/23/24 12:00 Pulse Ox 99 04/23/24 12:00 O2 Del Method HAG 04/23/24 10:00 O2 Flow Rate 7 04/17/24 20:05 FiO2 21 04/23/24 10:00 04/23/24 04/23/24 04/23/24 06:59 14:59 22:59 Intake Total 100 / 640 Balance 100 / 640 Weight last 48 hrs Weight 51.573 kg Weight 50.122 kg Physical Exam 2 Const: COMMON NORMALS: no acute distress HENMT: OTHER: Tracheostomy site, erythema has improved Resp: COMMON NORMALS: normal respiratory effort, No retractions, No use of accessory muscles and clear to auscultation bilaterally AUSCULTATION: clear to auscultation bilaterally Cardio: COMMON NORMALS: regular rate, regular rhythm, S1 normal heart sound present and S2 normal heart sound present RATE: regular rate RHYTHM: r egular rhythm HEART SOUNDS: S1 normal heart sound present and S2 normal heart sound present GI: COMMON NORMALS: Normal to inspection, nondistended, normoactive bowel sounds present and non-tender OTHER: PEG tube in place Extremity: COMMON NORMALS: no pedal edema Psych: COMMON NORMALS: mental status grossly normal Data 04/23/24 04:35 04/23/24 04:35 A&P Assessment and plan (1) Neck mass: 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, invasive Status post tracheostomy and G-tube placement on 04/13 Status post change out inner cannula Lovenox for DVT prophylaxis Currently on bolus tube feeds, tube feeds check residuals, Reglan as needed Monitor for refeeding syndrome, resolving (2) Leukocytosis: Concerning for pneumonia, cellulitis (3) Hypomagnesemia: Check magnesium and replace as needed (4) Hypophosphatemia: Check phosphate and other electrolytes (5) Tracheostomy in place: Routine tracheostomy care (6) Refeeding syndrome: - Replace electrolytes -Check potassium, magnesium, phosphorus - (7) Pneumonia: - ceftazidime 2 g IV every 8 hours and ciprofloxacin have been discontinued, -Switch to Levaquin 750 mg daily (8) Alcohol abuse with withdrawal: Concern for alcohol withdrawal, out of window ? CIWA protocol, discontinued ? stop librium due to oversedation ? Aspiration precautions (9) Severe protein-calorie malnutrition: Severe protein calorie malnutrition, physical deconditioning, muscle wasting -PT OT -Dietary eval -Receiving bolus tube feedings (10) Physical deconditioning: (11) Muscle wasting: (12) Acute encephalopathy: - Acute encephalopathy -With deconditioning -Likely a combination of alcohol withdrawals, out of window -Prolonged hospitalization -Some degree related to polypharmacy -some degree of wernickie encephalopathy related to alcoholism -cellulitis and pneumonia, resolving -For now continue to monitor mentation - Check ammonia levels within normal limits -CT of the head within normal limits -Continue Zyprexa 5 mg daily Plan Plan for today up out of bed, trach care, continue p.o. antibiotics, monitor mentation, Attestations 2 Medical Necessity Statement*: Patient requires hospitalization for acute encephalopathy, deconditioning, muscle wasting Diagnoses Neck mass R22.1 Leukocytosis D72.829 Hypomagnesemia E83.42 Hypophosphatemia E83.[address] Z93.0 Refeeding syndrome E87.8 Pneumonia J18.9 Alcohol abuse with withdrawal F10.139 Severe protein-calorie malnutrition E43 Physical deconditioning R53.81 Muscle wasting M62.50 Acute encephalopathy G93.40
[2024-04-23] MEDS: fluconazole 100 mg Tablet PEG-TUBE (16:41)
[2024-04-23] MEDS: enoxaparin 40 mg/0.4 mL Syringe SUBCUT (20:21)
[2024-04-24] VITALS (10 sets, daily range): BP systolic 114–142; BP diastolic 50–81; PULSE 76–110; RESP 14–22; TEMP 36.4–36.9; O2SAT 18–100
[2024-04-24] MEDS: famotidine 20 mg/2 mL INJ IVP ×2 (03:01→16:00)
[2024-04-24 04:37] LABS: Basophils # 0.1 10^3/uL (0.0-0.1); Basophils % 0.9 %; Eosinophils # 0.1 10^3/uL (0.0-0.8); Eosinophils % 0.6 %; Hematocrit 40.4 % (37-53); Lymphocytes # 1.4 10^3/uL (0.8-4.8); Lymphocytes % 11.2 %; Mean Corpuscular HGB Conc 32.7 g/dL (30-55); Mean Corpuscular Hemoglobin 36.7 pg (27-33); Mean Corpuscular Volume 112.2 fl (82-101); Monocytes # 1.4 10^3/uL (0.2-0.9); Monocytes % 11.3 %; Neutrophils # 9.37 10^3/uL (1.8-7.7); Neutrophils % 74.8 %; Nucleated Red Blood Cells % 0 %; Platelet Count 362 10^3/cmm (157-399); Red Cell Distribution Width 11.6 % (12.1-15.1); White Blood Count 12.51 10^3/uL (3.29-11.43)
[2024-04-24 04:57] LABS: Anion Gap 17.6 (5-19); Blood Urea Nitrogen 11 mg/dL (8-23); Calcium 9.4 mg/dL (8.5-10.5); Carbon Dioxide 23 mmol/L (22-29); Chloride 99 mmol/L (98-107); Creatinine Clr Calc Pharmacy 115.6239; Glomerular Filtration Rate 167.4 mL/min (90-130); Glucose 109 mg/dL (65-115); Osmolality Calculated 282 mOsm/kg (285-295); Potassium 3.6 mmol/L (3.5-5.1); Sodium 136 mmol/L (136-145)
[2024-04-24] MEDS: levoFLOXacin 750 mg Tablet PEG-TUBE (06:24)
[2024-04-24] MEDS: fluoxetine 20 mg Capsule PEG-TUBE (09:05)
[2024-04-24] MEDS: magnesium lactate 84 mg Tablet XX ×2 (09:05→18:17)
[2024-04-24] MEDS: thiamine 100 mg Tablet PEG-TUBE (09:06)
[2024-04-24] MEDS: folic acid 1 mg Tablet PEG-TUBE (09:06)
[2024-04-24] MEDS: multivitamin therapeutic Tablet 1 TAB XX (09:06)
[2024-04-24] MEDS: fluconazole 100 mg Tablet PEG-TUBE (09:06)
[2024-04-24] MEDS: OLANZapine 5 mg ODT PEG-TUBE ×2 (09:06→20:05)
[2024-04-24] MEDS: phosphorus 250 mg Tablet PEG-TUBE ×2 (09:06→18:17)
--- NOTE | 2024-04-24 10:16 | MRR_ITS ---
PROCEDURE INFORMATION: Exam: MR Head Without Contrast Exam date and time: 04/24/2024 1:13 PM Age: 64 years old Clinical indication: Altered mental status/memory loss; Confusion or disorientation; Additional info: Encephalopathy TECHNIQUE: Imaging protocol: Magnetic resonance imaging of the head without contrast. COMPARISON: CT head wo con* [id number] 04/21/2024 5:14 PM FINDINGS: Brain: Cerebral atrophy which is more than expected for patient's age. There are bilateral periventricular white matter and centrum semiovale foci of high FLAIR signal, consistent with chronic ischemic small vessel disease. No acute infarct, intracranial bleed or intracranial mass. Cerebral ventricles: Mild ex vacuo dilatation of the ventricles. Bones: Unremarkable. Paranasal sinuses: Normal as visualized. No acute sinusitis. Mastoid air cells: Normal as visualized. No mastoid effusion. Orbital cavities: Unremarkable. Soft tissues: Unremarkable. MR/MR head wo con* [id number] IMPRESSION: No acute infarct, intracranial bleed or intracranial mass.
[2024-04-24] MEDS: polyethylene glycol 3350 Pkt 17 gm PO (10:36)
--- NOTE | 2024-04-24 16:52 | P.PN_ITS ---
Subjective 2 Subjective: Patient was seen this morning, he is working with physical therapy, needs 1 person assistance to get up to a standing position, but is working with physical therapy continues to have generalized weakness he can follow commands he is alert to person, to place not to time he is able to answer basic yes or no questions, by nodding yes or no, his drowsiness to some degree persist, I cannot discern any focal weakness, no slurring of his words, has more generalized weakness, trach continues to have intermittent frothy sputum, tolerating PEG tube feeds he denies any abdominal pain Vitals/I&O/Wt Last Vital Signs Temp 97.9 F 04/24/24 16:00 Pulse 81 04/24/24 16:00 Resp 14 04/24/24 04:00 BP 121/74 04/24/24 16:00 Pulse Ox 98 04/24/24 16:00 O2 Del Method CAG 04/24/24 16:00 O2 Flow Rate 93 04/24/24 09:39 FiO2 21 04/24/24 09:39 04/24/24 04/24/24 04/24/24 06:59 14:59 22:59 Intake Total 300 / 540 Balance 300 / 540 Weight last 48 hrs Weight 47.769 kg Weight 51.573 kg Physical Exam 2 Const: COMMON NORMALS: no acute distress ORIENTATION/CONSCIOUSNESS: Yes awake, Yes oriented to person and Yes oriented to place; not oriented to time Resp: COMMON NORMALS: normal respiratory effort, No retractions, No use of accessory muscles and clear to auscultation bilaterally AUSCULTATION: clear to auscultation bilaterally Cardio: COMMON NORMALS: regular rate, regular rhythm, S1 normal heart sound present and S2 normal heart sound present RATE: regular rate RHYTHM: r egular rhythm HEART SOUNDS: S1 normal heart sound present and S2 normal heart sound present GI: COMMON NORMALS: Normal to inspection, nondistended, normoactive bowel sounds present and non-tender Extremity: COMMON NORMALS: no pedal edema Neuro: SENSORIUM/ORIENTATION: Yes oriented to person, Yes oriented to place and No oriented to time Psych: COMMON NORMALS: mental status grossly normal Data 04/24/24 04:08 04/24/24 04:08 A&P Assessment and plan (1) Neck mass: 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, invasive Status post tracheostomy and G-tube placement on 04/13 Status post change out inner cannula Lovenox for DVT prophylaxis Currently on bolus tube feeds, tube feeds check residuals, Reglan as needed Monitor for refeeding syndrome, resolving (2) Leukocytosis: Concerning for pneumonia, cellulitis (3) Hypomagnesemia: Check magnesium and replace as needed (4) Hypophosphatemia: Check phosphate and other electrolytes (5) Tracheostomy in place: Routine tracheostomy care (6) Refeeding syndrome: - Replace electrolytes -Check potassium, magnesium, phosphorus - (7) Pneumonia: - ceftazidime 2 g IV every 8 hours and ciprofloxacin have been discontinued, -Switch to Levaquin 750 mg daily (8) Alcohol abuse with withdrawal: Concern for alcohol withdrawal, out of window ? CIWA protocol, discontinued ? stop librium due to oversedation ? Aspiration precautions (9) Severe protein-calorie malnutrition: Severe protein calorie malnutrition, physical deconditioning, muscle wasting -PT OT -Dietary eval -Receiving bolus tube feedings (10) Physical deconditioning: (11) Muscle wasting: (12) Acute encephalopathy: - Acute encephalopathy -With deconditioning -Likely a combination of alcohol withdrawals, out of window -Prolonged hospitalization -Some degree related to polypharmacy -some degree of wernickie encephalopathy related to alcoholism -cellulitis and pneumonia, resolving -For now continue to monitor mentation - Check ammonia levels within normal limits -CT of the head within normal limits -Continue Zyprexa 5 mg daily -Due to persistent episodes of confusion, and generalized weakness we will order MRI of the brain Plan Plan for today up out of bed, trach care, continue p.o. antibiotics, monitor mentation, Attestations 2 Medical Necessity Statement*: Patient requires hospitalization for deconditioning, protein calorie malnutrition, encephalopathy deconditioned state Diagnoses Neck mass R22.1 Leukocytosis D72.829 Hypomagnesemia E83.42 Hypophosphatemia E83.[address] Z93.0 Refeeding syndrome E87.8 Pneumonia J18.9 Alcohol abuse with withdrawal F10.139 Severe protein-calorie malnutrition E43 Physical deconditioning R53.81 Muscle wasting M62.50 Acute encephalopathy G93.40
[2024-04-24] MEDS: enoxaparin 40 mg/0.4 mL Syringe SUBCUT (20:06)
[2024-04-24] MEDS: morphine 4 mg/mL SDV 1 mL 1 MG IVP (22:53)
--- NOTE | 2024-04-24 23:01 | PC.NURSE ---
This nurse was notified by [employer] that patient had pulled out his trach. Pt is lying in bed, in no acute distress O2 saturation is 100% w/CAG in place over stoma. RT notified and is at bedside. 8 uncuffed shiley replaced by RT. Pt was administered Morphine prior to replacement. Physician notified.
--- NOTE | 2024-04-24 23:33 | PC.NURSE ---
Rt unable to replace trach, Dr. Medrano notified as there is no ENT bonbon cream warmer. Dr. Medrano requested ER Dr. Davila to help with trach replacement. Trach replaced by Dr. Davila. Pt resting comfortably in bed, no distress present.
[2024-04-25] VITALS (10 sets, daily range): BP systolic 95–134; BP diastolic 58–84; PULSE 67–94; RESP 14–20; TEMP 36.5–36.8; O2SAT 96–99
[2024-04-25] MEDS: famotidine 20 mg/2 mL INJ IVP ×2 (03:19→16:25)
[2024-04-25 04:18] LABS: Basophils # 0.1 10^3/uL (0.0-0.1); Basophils % 0.7 %; Eosinophils # 0.1 10^3/uL (0.0-0.8); Hematocrit 37.9 % (37-53); Lymphocytes # 2.1 10^3/uL (0.8-4.8); Lymphocytes % 20.1 %; Mean Corpuscular HGB Conc 35.4 g/dL (30-55); Mean Corpuscular Hemoglobin 36.3 pg (27-33); Mean Corpuscular Volume 102.7 fl (82-101); Mean Platelet Volume 9.8 fL (7.4-10.4); Monocytes # 1.1 10^3/uL (0.2-0.9); Monocytes % 10.8 %; Neutrophils # 6.82 10^3/uL (1.8-7.7); Neutrophils % 66.1 %; Nucleated Red Blood Cells % 0 %; Platelet Count 450 10^3/cmm (157-399); Red Blood Count 3.69 10^6/uL (3.85-5.65); Red Cell Distribution Width 11.2 % (12.1-15.1)
[2024-04-25 04:49] LABS: Anion Gap 16.6 (5-19); Blood Urea Nitrogen 8 mg/dL (8-23); Calcium 9.7 mg/dL (8.5-10.5); Carbon Dioxide 26 mmol/L (22-29); Chloride 99 mmol/L (98-107); Creatinine Clr Calc Pharmacy 112.2917; Glomerular Filtration Rate 167.4 mL/min (90-130); Glucose 102 mg/dL (65-115); Osmolality Calculated 285 mOsm/kg (285-295); Potassium 3.6 mmol/L (3.5-5.1); Sodium 138 mmol/L (136-145)
[2024-04-25] MEDS: levoFLOXacin 750 mg Tablet PEG-TUBE (05:13)
[2024-04-25] MEDS: folic acid 1 mg Tablet PEG-TUBE (08:48)
[2024-04-25] MEDS: multivitamin therapeutic Tablet 1 TAB XX (08:48)
[2024-04-25] MEDS: fluconazole 100 mg Tablet PEG-TUBE (08:48)
[2024-04-25] MEDS: phosphorus 250 mg Tablet PEG-TUBE ×2 (08:48→17:42)
[2024-04-25] MEDS: magnesium lactate 84 mg Tablet XX ×2 (08:48→17:42)
[2024-04-25] MEDS: OLANZapine 5 mg ODT PEG-TUBE ×2 (08:48→20:26)
[2024-04-25] MEDS: fluoxetine 20 mg Capsule PEG-TUBE (08:48)
[2024-04-25] MEDS: thiamine 100 mg Tablet PEG-TUBE (08:48)
--- NOTE | 2024-04-25 10:45 | P.PN_ITS ---
Subjective 2 Subjective: Events overnight, patient removed his trach, which had to be replaced by the ER, this morning, he is alert awake he follows all commands, afebrile overnight, he has complaints of back pain, no other complaints, he is able to follow all commands, he looks much more alert and awake and calm this morning, Vitals/I&O/Wt Last Vital Signs Temp 97.8 F 04/25/24 08:00 Pulse 79 04/25/24 08:00 Resp 18 04/25/24 07:13 BP 95/58 04/25/24 08:00 Pulse Ox 98 04/25/24 09:45 O2 Del Method Room Air, HAG, Trach Collar 04/25/24 09:45 O2 Flow Rate 93 04/24/24 09:39 FiO2 21 04/24/24 09:39 04/24/24 04/25/24 04/25/24 22:59 06:59 14:59 Intake Total 480 / 480 Output Total 500 / 500 Balance -20 / -20 Weight last 48 hrs Weight 47.627 kg Weight 47.769 kg Physical Exam 2 Const: COMMON NORMALS: no acute distress ORIENTATION/CONSCIOUSNESS: Yes awake, Yes oriented to person and Yes oriented to place; not oriented to time Neck/C-Spine: OTHER: Tracheostomy in place, surrounding area of erythema, cellulitis has improved Resp: COMMON NORMALS: normal respiratory effort, No retractions, No use of accessory muscles and clear to auscultation bilaterally AUSCULTATION: clear to auscultation bilaterally Cardio: COMMON NORMALS: regular rate, regular rhythm, S1 normal heart sound present and S2 normal heart sound present RATE: regular rate RHYTHM: r egular rhythm HEART SOUNDS: S1 normal heart sound present and S2 normal heart sound present GI: COMMON NORMALS: Normal to inspection, nondistended, normoactive bowel sounds present and non-tender OTHER: PEG tube in place Extremity: COMMON NORMALS: no pedal edema Neuro: SENSORIUM/ORIENTATION: Yes oriented to person, Yes oriented to place and No oriented to time Data 04/25/24 03:45 04/25/24 03:45 A&P Assessment and plan (1) Neck mass: 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, invasive Status post tracheostomy and G-tube placement on 04/13 Status post change out inner cannula Lovenox for DVT prophylaxis Currently on bolus tube feeds, tube feeds check residuals, Reglan as needed Monitor for refeeding syndrome, resolving Zyprexa 5 mg twice daily for agitation (2) Leukocytosis: Concerning for pneumonia, cellulitis Currently on day 2 of Levaquin will complete 5 days (3) Hypomagnesemia: Check magnesium and replace as needed (4) Hypophosphatemia: Check phosphate and other electrolytes (5) Tracheostomy in place: Routine tracheostomy care (6) Refeeding syndrome: - Replace electrolytes -Check potassium, magnesium, phosphorus - (7) Pneumonia: - ceftazidime 2 g IV every 8 hours and ciprofloxacin have been discontinued, -Switch to Levaquin 750 mg daily, day 2 of 5 (8) Alcohol abuse with withdrawal: Concern for alcohol withdrawal, out of window ? CIWA protocol, discontinued ? stop librium due to oversedation ? 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 antibiotics, monitor mentation, Attestations 2 Medical Necessity Statement*: Patient requires hospitalization for deconditioning, encephalopathy Diagnoses Neck mass R22.1 Leukocytosis D72.829 Hypomagnesemia E83.42 Hypophosphatemia E83.[address] Z93.0 Refeeding syndrome E87.8 Pneumonia J18.9 Alcohol abuse with withdrawal F10.139 Severe protein-calorie malnutrition E43 Physical deconditioning R53.81 Muscle wasting M62.50 Acute encephalopathy G93.40
[2024-04-25] MEDS: morphine 4 mg/mL SDV 1 mL 1 MG IVP (11:27)
[2024-04-25] MEDS: enoxaparin 40 mg/0.4 mL Syringe SUBCUT (20:20)
[2024-04-26] VITALS (9 sets, daily range): BP systolic 112–128; BP diastolic 63–79; PULSE 66–102; RESP 14–22; TEMP 36.4–36.7; O2SAT 92–99
[2024-04-26] MEDS: morphine 4 mg/mL SDV 1 mL 1 MG IVP ×2 (01:25→06:32)
--- NOTE | 2024-04-26 01:29 | PC.NURSE ---
Manually documented 1 mg morphine IVP. Wasted 3mg with TANVI Joyner. Wasting nurse accidentally threw empty vial in sharps container.
[2024-04-26] MEDS: famotidine 20 mg/2 mL INJ IVP ×2 (05:02→16:53)
[2024-04-26] MEDS: levoFLOXacin 750 mg Tablet PEG-TUBE (05:02)
[2024-04-26 05:11] LABS: Basophils # 0.1 10^3/uL (0.0-0.1); Basophils % 0.9 %; Eosinophils # 0.1 10^3/uL (0.0-0.8); Eosinophils % 0.9 %; Hematocrit 38.2 % (37-53); Lymphocytes # 1.5 10^3/uL (0.8-4.8); Lymphocytes % 14.2 %; Mean Corpuscular HGB Conc 34.6 g/dL (30-55); Mean Corpuscular Hemoglobin 36.4 pg (27-33); Mean Corpuscular Volume 105.2 fl (82-101); Monocytes % 9.3 %; Neutrophils # 7.68 10^3/uL (1.8-7.7); Neutrophils % 73.4 %; Nucleated Red Blood Cells % 0 %; Platelet Count 414 10^3/cmm (157-399); Red Blood Count 3.63 10^6/uL (3.85-5.65); Red Cell Distribution Width 11.2 % (12.1-15.1); White Blood Count 10.46 10^3/uL (3.29-11.43)
[2024-04-26 05:36] LABS: Anion Gap 13.9 (5-19); Blood Urea Nitrogen 9 mg/dL (8-23); Calcium 9.8 mg/dL (8.5-10.5); Carbon Dioxide 28 mmol/L (22-29); Chloride 101 mmol/L (98-107); Creatinine Clr Calc Pharmacy 81.6947; Glomerular Filtration Rate 135.6 mL/min (90-130); Glucose 101 mg/dL (65-115); Osmolality Calculated 287 mOsm/kg (285-295); Potassium 3.9 mmol/L (3.5-5.1); Sodium 139 mmol/L (136-145)
[2024-04-26] MEDS: folic acid 1 mg Tablet PEG-TUBE (08:40)
[2024-04-26] MEDS: phosphorus 250 mg Tablet PEG-TUBE ×2 (08:40→17:41)
[2024-04-26] MEDS: fluoxetine 20 mg Capsule PEG-TUBE (08:40)
[2024-04-26] MEDS: fluconazole 100 mg Tablet PEG-TUBE (08:40)
[2024-04-26] MEDS: thiamine 100 mg Tablet PEG-TUBE (08:40)
[2024-04-26] MEDS: multivitamin therapeutic Tablet 1 TAB XX (08:40)
[2024-04-26] MEDS: OLANZapine 5 mg ODT PEG-TUBE ×2 (08:41→20:09)
[2024-04-26] MEDS: magnesium lactate 84 mg Tablet XX ×2 (08:42→17:41)
--- NOTE | 2024-04-26 14:10 | P.PN_ITS ---
Subjective 2 Subjective: Patient was seen this morning he is alert awake person, to place, not to time he follows commands, no acute events overnight Vitals/I&O/Wt Last Vital Signs Temp 97.5 F L 04/26/24 11:51 Pulse 102 H 04/26/24 11:51 Resp 20 H 04/26/24 11:51 BP 112/71 04/26/24 11:51 Pulse Ox 99 04/26/24 11:51 O2 Del Method Trach Collar 04/26/24 11:51 O2 Flow Rate 93 04/24/24 09:39 FiO2 21 04/24/24 09:39 04/25/24 04/26/24 04/26/24 22:59 06:59 14:59 Output Total 500 / 500 Balance -500 / -500 Weight last 48 hrs Weight 46.437 kg Weight 47.627 kg Physical Exam 2 Const: COMMON NORMALS: no acute distress ORIENTATION/CONSCIOUSNESS: Yes awake, Yes oriented to person and Yes oriented to place; not oriented to time Lymph: OTHER: Tracheostomy in place, clean and dry Resp: COMMON NORMALS: normal respiratory effort, No retractions, No use of accessory muscles and clear to auscultation bilaterally AUSCULTATION: clear to auscultation bilaterally Cardio: COMMON NORMALS: regular rate, regular rhythm, S1 normal heart sound present and S2 normal heart sound present RATE: regular rate RHYTHM: r egular rhythm HEART SOUNDS: S1 normal heart sound present and S2 normal heart sound present OTHER: PEG tube in place GI: COMMON NORMALS: Normal to inspection, nondistended, normoactive bowel sounds present and non-tender Extremity: COMMON NORMALS: no pedal edema Neuro: SENSORIUM/ORIENTATION: Yes oriented to person, Yes oriented to place and No oriented to time Psych: COMMON NORMALS: mental status grossly normal Data 04/26/24 04:41 04/26/24 04:41 A&P Assessment and plan (1) Neck mass: 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, invasive Status post tracheostomy and G-tube placement on 04/13 Status post change out inner cannula Lovenox for DVT prophylaxis Currently on bolus tube feeds, tube feeds check residuals, Reglan as needed Monitor for refeeding syndrome, resolving Zyprexa 5 mg twice daily (2) Leukocytosis: Concerning for pneumonia, cellulitis Currently on day 3 of Levaquin will complete 5 days (3) Hypomagnesemia: Check magnesium and replace as needed (4) Hypophosphatemia: Check phosphate and other electrolytes (5) Tracheostomy in place: Routine tracheostomy care (6) Refeeding syndrome: - Replace electrolytes -Check potassium, magnesium, phosphorus - (7) Pneumonia: - ceftazidime 2 g IV every 8 hours and ciprofloxacin have been discontinued, -Switch to Levaquin 750 mg daily, day 3 of 5 (8) Alcohol abuse with withdrawal: Concern for alcohol withdrawal, out of window ? CIWA protocol, discontinued ? stop librium due to oversedation ? 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 antibiotics, monitor mentation, Attestations 2 Medical Necessity Statement*: Patient requires hospitalization for bradycardia, long duration, deconditioning, Diagnoses Neck mass R22.1 Leukocytosis D72.829 Hypomagnesemia E83.42 Hypophosphatemia E83.[address] Z93.0 Refeeding syndrome E87.8 Pneumonia J18.9 Alcohol abuse with withdrawal F10.139 Severe protein-calorie malnutrition E43 Physical deconditioning R53.81 Muscle wasting M62.50 Acute encephalopathy G93.40
[2024-04-26] MEDS: enoxaparin 40 mg/0.4 mL Syringe SUBCUT (20:09)
[2024-04-27] VITALS: BP 111/76; PULSE 51; RESP 20; TEMP 36.6; O2SAT 98
[2024-04-27] MEDS: haloperidol inj 5 mg/mL INJ 1 mL IVP (02:16)
[2024-04-27 04:00] VITALS: BP 110/66; PULSE 82; RESP 20; TEMP 36.4; O2SAT 98
[2024-04-27] MEDS: levoFLOXacin 750 mg Tablet PEG-TUBE (05:33)
[2024-04-27] MEDS: famotidine 20 mg/2 mL INJ IVP (05:33)
[2024-04-27 06:10] LABS: Basophils # 0.1 10^3/uL (0.0-0.1); Basophils % 0.7 %; Eosinophils # 0.1 10^3/uL (0.0-0.8); Eosinophils % 0.8 %; Hematocrit 36.7 % (37-53); Lymphocytes # 1.3 10^3/uL (0.8-4.8); Lymphocytes % 12.6 %; Mean Corpuscular HGB Conc 35.1 g/dL (30-55); Mean Corpuscular Hemoglobin 36.6 pg (27-33); Mean Corpuscular Volume 104.3 fl (82-101); Mean Platelet Volume 9.9 fL (7.4-10.4); Monocytes # 0.9 10^3/uL (0.2-0.9); Monocytes % 8.4 %; Neutrophils # 8.06 10^3/uL (1.8-7.7); Neutrophils % 76.5 %; Nucleated Red Blood Cells % 0 %; Platelet Count 406 10^3/cmm (157-399); Red Blood Count 3.52 10^6/uL (3.85-5.65); Red Cell Distribution Width 11.3 % (12.1-15.1); White Blood Count 10.52 10^3/uL (3.29-11.43)
[2024-04-27 06:28] LABS: Anion Gap 14.6 (5-19); Blood Urea Nitrogen 9 mg/dL (8-23); Calcium 9.5 mg/dL (8.5-10.5); Carbon Dioxide 24 mmol/L (22-29); Chloride 103 mmol/L (98-107); Creatinine Clr Calc Pharmacy 82.4319; Glomerular Filtration Rate 135.6 mL/min (90-130); Glucose 103 mg/dL (65-115); Osmolality Calculated 285 mOsm/kg (285-295); Potassium 3.6 mmol/L (3.5-5.1); Sodium 138 mmol/L (136-145)
[2024-04-27 07:09] VITALS: BP 109/69; PULSE 78; RESP 16; TEMP 36.4; O2SAT 95
[2024-04-27] MEDS: folic acid 1 mg Tablet PEG-TUBE (08:26)
[2024-04-27] MEDS: OLANZapine 5 mg ODT PEG-TUBE (08:26)
[2024-04-27] MEDS: phosphorus 250 mg Tablet PEG-TUBE (08:26)
[2024-04-27] MEDS: magnesium lactate 84 mg Tablet XX (08:26)
[2024-04-27] MEDS: multivitamin therapeutic Tablet 1 TAB XX (08:26)
[2024-04-27] MEDS: fluconazole 100 mg Tablet PEG-TUBE (08:27)
[2024-04-27] MEDS: fluoxetine 20 mg Capsule PEG-TUBE (08:27)
[2024-04-27] MEDS: thiamine 100 mg Tablet PEG-TUBE (08:27)
--- NOTE | 2024-04-27 08:52 | P.DS_ITS ---
Discharge Providers Date of Admission: 04/13/24 12:39 Date of Discharge: April 27, 2024 Attending Provider at Admission: Rod Batres MD Attending Provider at Discharge: Paul Rodas MD Diagnoses at Discharge Discharge Diagnosis (1) Neck mass: Status: Acute (2) Leukocytosis: Status: Acute (3) Hypomagnesemia: Status: Acute (4) Hypophosphatemia: Status: Acute (5) Tracheostomy in place: Status: Acute (6) Refeeding syndrome: Status: Acute (7) Pneumonia: Status: Acute (8) Alcohol abuse with withdrawal: Status: Acute (9) Severe protein-calorie malnutrition: Status: Acute (10) Physical deconditioning: Status: Acute (11) Muscle wasting: Status: Acute (12) Acute encephalopathy: Status: Acute Reason for Visit Reason for Visit: D38.0 Hospital Course Hospital Course Ricardo Suazo is a 64 year old male with past medical history significant for hypopharyngeal mass and a threatened airway. Patient underwent tracheostomy and G-tube placement on 04/13. He has been started on tube feeds. Per nursing he is having copious secretions from his tracheostomy. Upon assessment, patient is awake and alert For his neck mass, biopsy showing moderately differentiated squamous cell carcinoma, invasive, follow-up with Dr. Llamas in 1 week, follow-up with Dr. Avery in 1 week, discharged to rehab facility Patient's hospitalization was complicated by leukocytosis, likely multifactorial from pneumonia, cellulitis of trach site, requiring broad-spectrum IV antibiotics, so far remains afebrile, cultures did not show any growth, overall clinically improving, discharged on 2 more days of p.o. antibiotics Patient's hospitalization was complicated with refeeding syndrome requiring electrolyte replacement therapy, discharged on p.o. replacement therapy of phosphorus, magnesium, and in addition to his tube feeds Patient's hospitalization was complicated with alcohol withdrawal, was managed on a Librium taper, which was discontinued after a few days due to concerns for oversedation, patient is out of withdrawal window Patient's hospitalization was complicated with acute encephalopathy, likely multifactorial from deconditioning, alcohol withdrawal, prolonged hospitalization, polypharmacy, some degree related to Warnicke's encephalopathy related to alcoholism, his cellulitis, pneumonia. Required inpatient monitoring, received electrolytes, IV antibiotics, vitamin therapy, PT OT, CT head within normal limits, MRI brain within normal limits. Overall patient's mentation improved, alert oriented to person, to place, not to time can follow commands is much more calm, follows directions, follows commands, no significant recurrent episodes of agitation 48 hours before discharge, discharged on Zyprexa at bedtime Patient's hospitalization was complicated by significant deconditioning, requiring PT OT, dietary eval, inpatient monitoring, discharged to skilled inpatient rehab Trach care, will receive trach care at patient rehab, follow-up with Dr. Batres For patient's oral candidiasis discharged on Diflucan PEG tube feedings, bolus tube feedings, Reglan as needed Physical Exam Const: COMMON NORMALS: no acute distress ORIENTATION/CONSCIOUSNESS: Yes awake, Yes oriented to person and Yes oriented to place; not oriented to time HENMT: OTHER: Tracheostomy in place Resp: COMMON NORMALS: normal respiratory effort, No retractions, No use of accessory muscles and clear to auscultation bilaterally AUSCULTATION: clear to auscultation bilaterally Cardio: COMMON NORMALS: regular rate, regular rhythm, S1 normal heart sound present and S2 normal heart sound present RATE: regular rate RHYTHM: regular rhythm HEART SOUNDS: S1 normal heart sound present and S2 normal heart sound present GI: COMMON NORMALS: Normal to inspection, nondistended, normoactive bowel sounds present and non-tender OTHER: PEG tube in place Extremity: COMMON NORMALS: no pedal edema Neuro: SENSORIUM/ORIENTATION: Yes oriented to person, Yes oriented to place and No oriented to time Discharge Data Studies Completed and Pending Completed Studies During Hospitalization Category Date Time Status CT head wo con* [id number] Routine Cat Scan 04/21/24 12:29 Completed XR KUB portable [id number] Stat Exams 04/18/24 13:11 Completed XR chest 1V portable [id number] Routine Exams 04/15/24 06:42 Completed XR chest 1V portable [id number] Stat Exams 04/16/24 09:49 Completed XR chest 1V portable [id number] Urgent Exams 04/13/24 17:41 Completed MR head wo con* [id number] Stat MRI 04/24/24 10:16 Completed Pathology: Surgical [PTH] Routine Pth 04/13/24 12:00 Completed Pending at discharge Category Date Time Status Basic Metabolic Panel AM LABS Lab 04/28/24 04:00 Ordered Complete Blood Count w/Auto AM LABS Lab 04/28/24 04:00 Ordered Radiology Impressions Chest X-Ray 04/16/24 09:49 Impression: Continued bilateral basilar opacities. This may represent atelectasis, infiltrate, and/or effusion. KUB X-Ray 04/18/24 13:11 IMPRESSION: 1. Interval new bibasilar consolidation is present, consistent with atelectasis, edema, or pneumonia. 2. There is a gastrostomy tube with balloon and tip projected over the distal body of the stomach. Nonspecific bowel gas pattern. No ileus or obstruction. Head CT 04/21/24 12:29 IMPRESSION: No acute intracranial findings. Head MRI 04/24/24 10:16 IMPRESSION: No acute infarct, intracranial bleed or intracranial mass. Laboratory Results WBC 10.52 10^3/uL (3.29-11.43) 04/27/24 05:17 RBC 3.52 10^6/uL (3.85-5.65) L 04/27/24 05:17 Hgb 12.90 g/dL (11.27-16.99) 04/27/24 05:17 Hct 36.7 % (37-53) L 04/27/24 05:17 MCV 104.3 fl (82-101) H 04/27/24 05:17 MCH 36.6 pg (27-33) H 04/27/24 05:17 MCHC 35.1 g/dL (30-55) 04/27/24 05:17 RDW 11.3 % (12.1-15.1) L 04/27/24 05:17 Plt Count 406 10^3/cmm (157-399) H 04/27/24 05:17 MPV 9.9 fL (7.4-10.4) 04/27/24 05:17 Neut % (Auto) 76.5 % 04/27/24 05:17 Lymph % (Auto) 12.6 % 04/27/24 05:17 [place] % (Auto) 8.4 % 04/27/24 05:17 Eos % (Auto) 0.8 % 04/27/24 05:17 Baso % (Auto) 0.7 % 04/27/24 05:17 Neut # (Auto) 8.06 10^3/uL (1.8-7.7) H 04/27/24 05:17 Lymph # (Auto) 1.3 10^3/uL (0.8-4.8) 04/27/24 05:17 [place] # (Auto) 0.9 10^3/uL (0.2-0.9) 04/27/24 05:17 Eos # (Auto) 0.1 10^3/uL (0.0-0.8) 04/27/24 05:17 Baso # (Auto) 0.1 10^3/uL (0.0-0.1) 04/27/24 05:17 Nucleated RBC % (auto) 0 % 04/27/24 05:17 Nucleated RBCs # 0.0 /100WBC 04/27/24 05:17 Sodium 138 mmol/L (136-145) 04/27/24 05:17 Potassium 3.6 mmol/L (3.5-5.1) 04/27/24 05:17 Chloride 103 mmol/L (98-107) 04/27/24 05:17 Carbon Dioxide 24 mmol/L (22-29) 04/27/24 05:17 Anion Gap 14.6 (5-19) 04/27/24 05:17 BUN 9 mg/dL (8-23) 04/27/24 05:17 Creatinine 0.6 mg/dL (0.7-1.2) L 04/27/24 05:17 GFR Calculation 135.6 mL/min (90-130) H 04/27/24 05:17 Glucose 103 mg/dL (65-115) 04/27/24 05:17 Calculated Osmolality 285 mOsm/kg (285-295) 04/27/24 05:17 Calcium 9.5 mg/dL (8.5-10.5) 04/27/24 05:17 Phosphorus 3.5 mg/dL (2.5-4.5) 04/22/24 02:37 Magnesium 1.7 mg/dL (1.7-2.3) 04/22/24 02:37 Total Bilirubin 0.9 mg/dL (0.15-1.2) 04/18/24 03:43 AST 47 U/L (0-40) H 04/18/24 03:43 ALT 42 U/L (0-41) H 04/18/24 03:43 Alkaline Phosphatase 51 U/L (40-130) 04/18/24 03:43 Ammonia 33 umol/L (16-60) 04/21/24 14:16 Troponin T Baseline 8 ng/L (0-15) 04/21/24 20:00 Troponin T 120 Minute 8.90 ng/L (0-15) 04/21/24 21:11 Delta Troponin T 0.90 ABS# (0-10) 04/21/24 21:11 Troponin T Hi Sens 6Hr 11.22 ng/L (0-15) 04/22/24 02:37 Troponin T Hi Sens 6Hr Delta 3.22 ng/L (0-12) 04/22/24 02:37 C-Reactive Protein 73.4 mg/L (0.0-4.9) H 04/15/24 07:04 Total Protein 6.1 g/dL (6.6-8.7) L 04/18/24 03:43 Albumin 3.0 g/dL (3.5-5.2) L 04/18/24 03:43 Globulin 3.1 g/dL (1.3-4.6) 04/18/24 03:43 Procalcitonin 0.14 ng/mL (0-0.5) 04/15/24 07:04 Urine Color Yellow (Yellow) 04/15/24 10:00 Urine Appearance Clear (CLEAR) 04/15/24 10:00 Urine pH 7.5 (5-7) 04/15/24 10:00 Ur Specific [place] 1.011 (1.005-1.030) 04/15/24 10:00 Urine Protein Negative (Negative) 04/15/24 10:00 Urine Glucose (UA) Negative (Normal) 04/15/24 10:00 Urine Ketones Negative (Negative) 04/15/24 10:00 Urine Blood Negative (Negative) 04/15/24 10:00 Urine Nitrate Negative (Negative) 04/15/24 10:00 Urine Bilirubin Negative (Negative) 04/15/24 10:00 Urine Urobilinogen 4.0 mg/dL (Negative) H 04/15/24 10:00 Ur Leukocyte Esterase Negative (Negative) 04/15/24 10:00 Urine RBC 0-2 /hpf (0-2) 04/15/24 10:00 Urine WBC 0-5 /hpf (0-5) 04/15/24 10:00 Ur Squamous Epith Cells 0-5 /hpf (0-5) 04/15/24 10:00 Amorphous Sediment Not Reportable 04/15/24 10:00 Urine Bacteria None seen /hpf (NONE) 04/15/24 10:00 Hyaline Casts 0.40 /lpf 04/15/24 10:00 Adenovirus (PCR) Not detected (NOT DETECT) 04/15/24 10:28 C. pneumoniae DNA (PCR) Not detected (NOT DETECT) 04/15/24 10:28 Coronavirus 229E (PCR) Not detected (NOT DETECT) 04/15/24 10:28 Human Metapneumovir PCR Not detected (NOT DETECT) 04/15/24 10:28 Influenza A (H1) PCR Not detected (NOT DETECT) 04/15/24 10:28 Influ A (H1/09) PCR Not detected (NOT DETECT) 04/15/24 10:28 Influenza A (H3) PCR Not detected (NOT DETECT) 04/15/24 10:28 Influenza Type A (PCR) Not detected (NOT DETECT) 04/15/24 10:28 Influenza Type B (PCR) Not detected (NOT DETECT) 04/15/24 10:28 M. pneumoniae (PCR) Not detected (NOT DETECT) 04/15/24 10:28 Parainfluenza 1 (PCR) Not detected (NOT DETECT) 04/15/24 10:28 Parainfluenza 2 (PCR) Not detected (NOT DETECT) 04/15/24 10:28 Parainfluenza 3 (PCR) Not detected (NOT DETECT) 04/15/24 10:28 Parainfluenza 4 (PCR) Not detected (NOT DETECT) 04/15/24 10:28 RSV Type A (PCR) Not detected (NOT DETECT) 04/15/24 10:28 RSV Type B (PCR) Not detected (NOT DETECT) 04/15/24 10:28 Entero/Rhino (PCR) Not detected (NOT DETECT) 04/15/24 10:28 SARS-CoV-2 (PCR) Not detected (NOT DETECT) 04/15/24 10:28 Vitals Last Vital Signs Temp 97.5 F L 04/27/24 07:09 Pulse 78 04/27/24 07:09 Resp 16 04/27/24 07:09 BP 109/69 04/27/24 07:09 Pulse Ox 95 04/27/24 07:09 O2 Del Method Trach Collar 04/27/24 07:09 O2 Flow Rate 93 04/24/24 09:39 FiO2 21 04/24/24 09:39 Discharge Plan Discharge Patient Disposition: Xfer Inpatient Rehab Fac Condition: Stable Prescriptions: New fluconazole 100 mg Tablet 100 mg peg-tube DAILY 7 Days Qty: 7 0RF acetaminophen 325 mg Tablet 650 mg peg-tube Q4H PRN (Reason: Mild Pain Or Increase Temp) 30 Days Qty: 60 0RF ipratropium-albuterol 0.5 mg-3 mg(2.5 mg base)/3 mL Solution For Nebulization 3 ml inhalation Q4H PRN (Reason: Shortness Of Breath) 30 Days Qty: 90 0RF folic acid 1 mg Tablet 1 mg peg-tube DAILY 30 Days Qty: 30 0RF fluoxetine 20 mg Capsule 20 mg peg-tube DAILY 30 Days Qty: 30 0RF levofloxacin 750 mg Tablet 750 mg peg-tube DAILY@0600 2 Days Qty: 2 0RF Magtab 84 mg Tablet Extended Release 84 mg PO DAILY 30 Days Qty: 60 0RF Rx Instructions: PEG Phospha 250 Neutral 250 mg Tablet 1 tab peg-tube DAILY 30 Days Qty: 30 0RF olanzapine 5 mg Tablet,Disintegrating 5 mg peg-tube BEDTIME 30 Days Qty: 30 0RF Thera 400 mcg Tablet 1 tab PO DAILY 30 Days Qty: 30 0RF Vitamin B-1 (mononitrate) 100 mg Tablet 100 mg peg-tube DAILY 30 Days Qty: 30 0RF Continued hydrocodone-acetaminophen 5-325 mg tablet 1 tab PO Q6H PRN (Reason: pain) 7 Days Qty: 28 0RF Discharge Orders: Discharge Order (Routine); Ordered 04/27/24 Ordered By: Paul Rodas Other Ambulatory Orders: DME: Tracheostomy Supplies (Order) Location: None Selected Ordered By: Rod Batres DME: Enteral Nutrition (Order) Location: None Selected Ordered By: Rod Batres DME: Walker (Order) Location: None Selected Ordered By: Paul Rodas Referrals: [facility] [Outside] Rod Batres MD [Physician] - 1 week Derick Llamas MD [Hospitalist] - 4-7 days Discharge Diet: As Directed Discharge Activity: Increase activity as tolerated Patient Instructions: Acute Wound Care (DC), Opioid Safety, Post Anesthesia Care Activity Restrictions/Additional Instructions: - Tube feeding regimen, Jevity, 1.5, bolus regimen to 240 mL at 9 AM, 240 mL at 1 PM, 240 mL at 5 PM, free water flush 100 mL every 4 hours -Monitor BMP, mag, Phos every 48 hours -Trach care Discharge Attestations Time Spent in Discharge Care*: greater than 30 min Quality Metrics Clinical Quality Measures [ No reported AMI, CVA or VTE this stay] Coding Level of Care Code 03559 Total time (in minutes) for Discharge: 45 Diagnoses Neck mass R22.1 Leukocytosis D72.829 Hypomagnesemia E83.42 Hypophosphatemia E83.[address] Z93.0 Refeeding syndrome E87.8 Pneumonia J18.9 Alcohol abuse with withdrawal F10.139 Severe protein-calorie malnutrition E43 Physical deconditioning R53.81 Muscle wasting M62.50 Acute encephalopathy G93.40
--- NOTE | 2024-04-27 10:58 | PC.NURSE ---
1048- report called to TANVI Burch at [facility] regarding pt and his transfer. All hx and recent labs/tests/surgeries discussed. Questions and concerns answered and addressed. Will call back when pt leaves with EMS.
[2024-04-27 12:00] VITALS: BP 105/67; PULSE 83; RESP 16; TEMP 36.4; O2SAT 97
[2024-04-27 13:06] VITALS: BP 105/67; PULSE 83; RESP 16; TEMP 36.4; O2SAT 97
== END 2024-04-27 12:25 | DRG 11 ==
LOC: ICU 12:41 → MEDSURG 04-16 08:43
PROVIDERS: Anesthesiology; Internal Medicine; Surgery; Admitting Provider Specialist; Visit Provider Family Medicine
PROC: 0B110F4 Bypass Trachea to Cutaneous with Tracheostomy Device, Open Approach (ICD-10-PCS; principal; 2024-04-13 10:00)
PROC: 0CJS8ZZ Inspection of Larynx, Via Natural or Artificial Opening Endoscopic (ICD-10-PCS; 2024-04-13 10:00)
PROC: 0DH63UZ Insertion of Feeding Device into Stomach, Percutaneous Approach (ICD-10-PCS; CPT 43246; 2024-04-13 10:00)
DX: C14.0 Malignant neoplasm of pharynx, unspecified (principal); E43 Unspecified severe protein-calorie malnutrition; J18.9 Pneumonia, unspecified organism; F10.939 Alcohol use, unspecified with withdrawal, unspecified; Z68.1 Body mass index [BMI] 19.9 or less, adult; G93.49 Other encephalopathy; L03.221 Cellulitis of neck; B37.0 Candidal stomatitis; R13.10 Dysphagia, unspecified; E83.42 Hypomagnesemia; E83.39 Other disorders of phosphorus metabolism; M62.50 Muscle wasting and atrophy, not elsewhere classified, unspecified site; R45.1 Restlessness and agitation; L89.101 Pressure ulcer of unspecified part of back, stage 1; Z88.0 Allergy status to penicillin
CPT/HCPCS: 36415; 70450; 70551; 71045; 74018; 80048; 80053; 81003; 81015; 82140; 83735; 84100; 84145; 84484; 85025; 86140; 87070; 87205; 87486; 87581; 87633; 88305; 93005; 94640; 94664; 94762; 94799; 96372; 96376; 97110; 97116; 97162; 97167; 97530; 97535; C1713; J0171; J0456; J0696; J0713; J0744; J1100; J1630; J1650; J2060; J2250; J2270; J2405; J2704; J2765; J3010; J3411; J3475; J3480; J3490; J7030; J7050; J7120

== ENCOUNTER 2024-05-09 14:23 | Emergency (ER) | payer OTHER, SELFPAY ==
[2024-05-09] VITALS (7 sets, daily range): BP systolic 86–117; BP diastolic 48–73; PULSE 87–109; RESP 16–26; TEMP 37.1; O2SAT 95–99; BMI 17.6
--- NOTE | 2024-05-09 14:31 | ECG_ITS ---
[facility] Test Date: 2024-05-09 Pat Name: Ricardo Suazo Department: Room: Gender: Male Trouble Clerk: : 1960 Requested By: Dali Wood Order Number: [id number] Eli MD: HUMBERTO PATRICIO Measurements Intervals Omer Rate: 95 P: 60 OH: 124 QRS: 48 QRSD: 96 T: 62 QT: 362 QTc: 455 Interpretive Statements SINUS RHYTHM INCOMPLETE RIGHT BUNDLE BRANCH BLOCK [90+ ms QRS DURATION, TERMINAL R IN V1/V2, 40+ ms S IN I/aVL/V4/V5/V6] Compared to ECG 04/22/2024 00:56:58 Incomplete right bundle-branch block now present Electronically Signed On 05-09-2024 18:46:16 CDT by HUMBERTO PATRICIO [id number]
--- NOTE | 2024-05-09 14:39 | XRR_ITS ---
PROCEDURE INFORMATION: Exam: XR Chest Exam date and time: 05/09/2024 2:49 PM Age: 64 years old Clinical indication: Cough; Patient HX: Bloody sputum from fresh trach (3 weeks old); Esophageal CA TECHNIQUE: Imaging protocol: Radiologic exam of the chest. Views: 1 view. COMPARISON: CR XR chest 1V portable [id number] 04/16/2024 10:04 AM FINDINGS: Tubes, catheters and devices: There is a tracheostomy tube in satisfactory position. Lungs: Unremarkable. No consolidation. Pleural spaces: Unremarkable. No pleural effusion. No pneumothorax. Heart/Mediastinum: Unremarkable. No cardiomegaly. Bones/joints: No acute bony abnormalities detected. XR/XR chest 1V portable [id number] IMPRESSION: Negative chest exam.
--- NOTE | 2024-05-09 14:44 | ED_ITS ---
HPI - General Adult 2 General: Chief complaint: General Medical Stated complaint: trac tube in throat coughing up blood Time Seen by Provider: 05/09/24 14:39 Source: patient Mode of arrival: ambulatory Limitations: no limitations History of Present Illness: 64-year-old male history of neck mass wh o had a tracheostomy placed roughly 3- 1/2 weeks ago. Patient states that roughly an hour ago he started having coughing up blood through the tracheostomy with some mucus. He denies any actual bleeding around the tracheostomy denies any fevers denies any pain currently Associated symptoms: Deny chest pain, dyspnea, headache(s), nausea, rash or vomiting Related Data Previous Rx's Medication Instructions Recorded acetaminophen 325 mg tablet 650 mg (2 x 325 mg) peg-tube Q4H 04/27/24 PRN Mild Pain Or Increase Temp 30 days #60 tabs fluoxetine 20 mg capsule 20 mg peg-tube DAILY 30 days #30 04/27/24 caps folic acid 1 mg tablet 1 mg peg-tube DAILY 30 days #30 04/27/24 tabs hydrocodone 5 mg-acetaminophen 325 1 tab PO Q6H PRN pain 7 days #28 04/27/24 mg tablet tabs ipratropium 0.5 mg-albuterol 3 mg 3 ml inhalation Q4H PRN Shortness 04/27/24 (2.5 mg base)/3 mL nebulization Of Breath 30 days #90 mL soln magnesium L-lactate 84 mg 84 mg PO DAILY 30 days #60 tabs 04/27/24 tablet,extended release (Magtab) multivitamin with folic acid 400 1 tab PO DAILY 30 days #30 tabs 04/27/24 mcg tablet (Thera) olanzapine 5 mg disintegrating 5 mg peg-tube BEDTIME 30 days #30 04/27/24 tablet tabs sodium di- and 1 tab peg-tube DAILY 30 days #30 04/27/24 monophosphate-potassium phos tabs monobasic 250 mg tablet (Phospha Neutral) thiamine mononitrate (vit B1) 100 100 mg peg-tube DAILY 30 days #30 04/27/24 mg tablet (Vitamin B-1 tabs (mononitrate)) Allergies Allergy/AdvReac Type Severity Reaction Status Date / Time Penicillins Allergy ADR-Gastrointestinal Verified 03/03/24 18:02 Upset Review of Systems 2 Const: Denies: fever(s), chills, body aches or change in appetite ENMT: Denies: throat pain or dental pain Card: Denies: chest pain Resp: Reports: productive cough and hemoptysis; Denies: dyspnea GI: Denies: abdominal pain, nausea, vomiting or diarrhea Musc: Denies: neck pain or back pain Skin/Breast: Denies: rash Neuro: Denies: headache(s) PFSH ED 2 PFSH: Medical History History of gastrostomy tube placement Throat mass Surgical History History of tracheostomy Course 2 Vital Signs: Vital signs: Vital Signs Temperature 98.7 F 05/09/24 14:29 Pulse Rate 95 05/09/24 16:08 Respiratory Rate 26 H 05/09/24 15:51 Blood Pressure 103/67 05/09/24 16:14 Pulse Oximetry 97 05/09/24 16:08 Oxygen Delivery Me thod Trach Collar 05/09/24 16:08 [facility] - General Adult Medical Decision Making Patient presents here with some slight hemoptysis from his trach I did speak to ENT Dr. Avery this is likely from his tumor areas no bleeding around the trach site at all no signs of bleeding from the trach. CT shows no PE or pneumonia did suction he is improved here. He is to follow-up with Dr. Avery return if worsening he understands agrees to plan Medical Records I reviewed the patient's medical records. Lab Data I reviewed the patient's lab results. 05/09/24 16:07 05/09/24 15:00 Radiology Impressions Chest X-Ray 05/09/24 14:39 IMPRESSION: Negative chest exam. Chest CTA 05/09/24 14:48 IMPRESSION: Technically limited CTA of the chest as discussed above. Laboratory Results WBC 10.03 10^3/uL (3.29-11.43) 05/09/24 15:00 RBC 3.92 10^6/uL (3.85-5.65) 05/09/24 15:00 Hgb 12.80 g/dL (11.27-16.99) 05/09/24 16:07 Hct 36.3 % (37-53) L 05/09/24 16:07 MCV 101.0 fl (82-101) 05/09/24 15:00 MCH 34.9 pg (27-33) H 05/09/24 15:00 MCHC 34.6 g/dL (30-55) 05/09/24 15:00 RDW 11.5 % (12.1-15.1) L 05/09/24 15:00 Plt Count 321 10^3/cmm (157-399) 05/09/24 15:00 MPV 10.4 fL (7.4-10.4) 05/09/24 15:00 Neut % (Auto) 68.2 % 05/09/24 15:00 Lymph % (Auto) 15.7 % 05/09/24 15:00 [place] % (Auto) 13.5 % 05/09/24 15:00 Eos % (Auto) 1.6 % 05/09/24 15:00 Baso % (Auto) 0.5 % 05/09/24 15:00 Neut # (Auto) 6.85 10^3/uL (1.8-7.7) 05/09/24 15:00 Lymph # (Auto) 1.6 10^3/uL (0.8-4.8) 05/09/24 15:00 [place] # (Auto) 1.4 10^3/uL (0.2-0.9) H 05/09/24 15:00 Eos # (Auto) 0.2 10^3/uL (0.0-0.8) 05/09/24 15:00 Baso # (Auto) 0.1 10^3/uL (0.0-0.1) 05/09/24 15:00 Nucleated RBC % (auto) 0 % 05/09/24 15:00 Nucleated RBCs # 0.0 /100WBC 05/09/24 15:00 PT 12.60 SECONDS (12.1-14.9) 05/09/24 15:00 INR 0.92 (0.8-1.2) 05/09/24 15:00 Sodium 138 mmol/L (136-145) 05/09/24 15:00 Potassium 3.4 mmol/L (3.5-5.1) L 05/09/24 15:00 Chloride 90 mmol/L (98-107) L 05/09/24 15:00 Carbon Dioxide 37 mmol/L (22-29) H 05/09/24 15:00 Anion Gap 14.4 (5-19) 05/09/24 15:00 BUN 22 mg/dL (8-23) 05/09/24 15:00 Creatinine 0.6 mg/dL (0.7-1.2) L 05/09/24 15:00 GFR Calculation 135.6 mL/min (90-130) H 05/09/24 15:00 Glucose 118 mg/dL (65-115) H 05/09/24 15:00 Calculated Osmolality 290 mOsm/kg (285-295) 05/09/24 15:00 Calcium 10.2 mg/dL (8.5-10.5) 05/09/24 15:00 Total Bilirubin 0.5 mg/dL (0.15-1.2) 05/09/24 15:00 AST 44 U/L (0-40) H 05/09/24 15:00 ALT 36 U/L (0-41) 05/09/24 15:00 Alkaline Phosphatase 99 U/L (40-130) 05/09/24 15:00 Total Protein 8.1 g/dL (6.6-8.7) 05/09/24 15:00 Albumin 3.7 g/dL (3.5-5.2) 05/09/24 15:00 Globulin 4.4 g/dL (1.3-4.6) 05/09/24 15:00 All radiology interpretation(s) finalized by discharge EKG Data EKG 1: I personally reviewed and interpreted this EKG as follows: EKG interpretation date: 05/09/24 EKG interpretation time: 14:31 Interpretation: nsr hr [address] or t wave abnormalities qrs 96 qtc 414 Computer generated interpretation: Chest X-Ray 05/09/24 14:39 IMPRESSION: Negative chest exam. Chest CTA 05/09/24 14:48 IMPRESSION: Technically limited CTA of the chest as discussed above. EKG 2: I personally reviewed and interpreted this EKG as follows: EKG interpretation date: 05/09/24 EKG interpretation time: 14:31 Interpretation: 1431 nsr hr [address] elevation qrs 96 qtc 414 Computer generated interpretation: Chest X-Ray 05/09/24 14:39 IMPRESSION: Negative chest exam. Chest CTA 05/09/24 14:48 IMPRESSION: Technically limited CTA of the chest as discussed above. Discharge Plan Discharge Patient Disposition: Home Clinical Impression: Hemoptysis Condition: Stable Prescriptions: No Action acetaminophen 325 mg Tablet 650 mg peg-tube Q4H PRN (Reason: Mild Pain Or Increase Temp) 30 Days Qty: 60 0RF ipratropium-albuterol 0.5 mg-3 mg(2.5 mg base)/3 mL Solution For Nebulization 3 ml inhalation Q4H PRN (Reason: Shortness Of Breath) 30 Days Qty: 90 0RF folic acid 1 mg Tablet 1 mg peg-tube DAILY 30 Days Qty: 30 0RF fluoxetine 20 mg Capsule 20 mg peg-tube DAILY 30 Days Qty: 30 0RF Magtab 84 mg Tablet Extended Release 84 mg PO DAILY 30 Days Qty: 60 0RF Rx Instructions: PEG Phospha 250 Neutral 250 mg Tablet 1 tab peg-tube DAILY 30 Days Qty: 30 0RF olanzapine 5 mg Tablet,Disintegrating 5 mg peg-tube BEDTIME 30 Days Qty: 30 0RF Thera 400 mcg Tablet 1 tab PO DAILY 30 Days Qty: 30 0RF Vitamin B-1 (mononitrate) 100 mg Tablet 100 mg peg-tube DAILY 30 Days Qty: 30 0RF hydrocodone-acetaminophen 5-325 mg tablet 1 tab PO Q6H PRN (Reason: pain) 7 Days Qty: 28 0RF Discharge Orders: Discharge ED (Routine); Ordered 05/09/24 Ordered By: Dali Wood Discharge Diet: Advance as tolerated Discharge Activity: Resume usual activity Patient Instructions: Hemoptysis Coding Level of Care Code ED [facility] for Daniel Rubi
--- NOTE | 2024-05-09 14:48 | CTR_ITS ---
PROCEDURE INFORMATION: Exam: CTA Chest With Contrast Exam date and time: 05/09/2024 3:10 PM Age: 64 years old Clinical indication: Shortness of breath and other: Hemoptysis; Prior surgery; Surgery date: <1 month; Surgery type: Trac TECHNIQUE: Imaging protocol: Computed tomographic angiography of the chest with contrast. Exam focused on the arteries. 3D rendering (Not supervised by radiologist): MIP and/or 3D reconstructed images were created by the technologist. Radiation optimization: All CT scans at this facility use at least one of these dose optimization techniques: automated exposure control; mA and/or kV adjustment per patient size (includes targeted exams where dose is matched to clinical indication); or iterative reconstruction. Contrast material: OMNI 350; Contrast volume: 56 ml; Contrast route: INTRAVENOUS (IV); COMPARISON: CT chest abdpel w/*[id number] 03/03/2024 7:08 PM RADIATION DOSE METRICS: Total DLP (mGy-cm): 194.1 FINDINGS: Limitations: Study is technically limited due to motion artifact. Tubes, catheters and devices: There is a gastrostomy tube partially visualized. Pulmonary arteries: Right and left pulmonary arteries are adequately opacified and patent. However 1st and 2nd order branches cannot be adequately assessed due to motion artifact. Aorta: Thoracic aorta is unremarkable. No aortic aneurysm or evidence of aortic dissection. Trachea: There is a tracheostomy terminating 4 cm above the misha in adequate position. Lungs: Unremarkable. No consolidation. No masses. Pleural spaces: Unremarkable. No pneumothorax. No pleural effusion. Heart: Heart is not significantly enlarged. There are mild calcifications of the coronary arteries. No significant pericardial effusion. Lymph nodes: Unremarkable. No enlarged lymph nodes. Bones/joints: Unremarkable. No acute fracture. Soft tissues: Unremarkable. CT/CT angio chest PE protcl [id number] IMPRESSION: Technically limited CTA of the chest as discussed above.
--- NOTE | 2024-05-09 15:06 | PC.RESP ---
pt deep sxn through trach with 14 albanian sxn cath. a moderate amount of bloody sputum was snx. pt refused to let rt deep sxn again. pt is able to cough up sputum on his own
[2024-05-09 15:09] LABS: Basophils # 0.1 10^3/uL (0.0-0.1); Basophils % 0.5 %; Eosinophils # 0.2 10^3/uL (0.0-0.8); Eosinophils % 1.6 %; Hematocrit 39.6 % (37-53); Lymphocytes # 1.6 10^3/uL (0.8-4.8); Lymphocytes % 15.7 %; Mean Corpuscular HGB Conc 34.6 g/dL (30-55); Mean Corpuscular Hemoglobin 34.9 pg (27-33); Mean Platelet Volume 10.4 fL (7.4-10.4); Monocytes # 1.4 10^3/uL (0.2-0.9); Monocytes % 13.5 %; Neutrophils # 6.85 10^3/uL (1.8-7.7); Neutrophils % 68.2 %; Nucleated Red Blood Cells % 0 %; Platelet Count 321 10^3/cmm (157-399); Red Blood Count 3.92 10^6/uL (3.85-5.65); Red Cell Distribution Width 11.5 % (12.1-15.1); White Blood Count 10.03 10^3/uL (3.29-11.43)
[2024-05-09] MEDS: iohexol 350 mg/mL 500 mL Btl (per mL) IV (15:13)
[2024-05-09 15:24] LABS: INR 0.92 (0.8-1.2)
[2024-05-09 15:32] LABS: Alanine Aminotransferase 36 U/L (0-41); Albumin Level 3.7 g/dL (3.5-5.2); Alkaline Phosphatase 99 U/L (40-130); Anion Gap 14.4 (5-19); Aspartate Amino Transferase 44 U/L (0-40); Blood Urea Nitrogen 22 mg/dL (8-23); Calcium 10.2 mg/dL (8.5-10.5); Carbon Dioxide 37 mmol/L (22-29); Chloride 90 mmol/L (98-107); Globulin 4.4 g/dL (1.3-4.6); Glomerular Filtration Rate 135.6 mL/min (90-130); Glucose 118 mg/dL (65-115); Osmolality Calculated 290 mOsm/kg (285-295); Potassium 3.4 mmol/L (3.5-5.1); Sodium 138 mmol/L (136-145); Total Bilirubin 0.5 mg/dL (0.15-1.2); Total Protein 8.1 g/dL (6.6-8.7)
[2024-05-09 15:40] LABS: Creatinine Clr Calc Pharmacy 79.7982
[2024-05-09] MEDS: ipratropium-albuterol 3 mL Neb INHALATION (15:50)
[2024-05-09] MEDS: sodium chloride 0.9% 1,000 ML 999 ML IV (16:05)
[2024-05-09 16:12] LABS: Hematocrit 36.3 % (37-53)
[2024-05-09] MEDS: dexamethasone 4 mg/mL INJ 8 MG IVP (16:25)
== END 2024-05-09 17:01 | disposition home or self-care (01) ==
PROVIDERS: Emergency Provider Emergency Medicine
DX: R04.2 Hemoptysis (principal); Z93.0 Tracheostomy status
CPT/HCPCS: 71045; 71275; 80053; 85014; 85018; 85025; 85610; 93005; 94640; 94799; 96374; 99285; J1100; J7030

== ENCOUNTER 2024-05-25 11:09 | Oncology outpatient (recurring) (ONCR) | payer OTHER, SELFPAY ==
--- NOTE | 2024-05-18 14:40 | N.ONRAD NP_ITS ---
Radiation Oncology New Patient Visit Patient: Ricardo Suazo MR#: [id number] : 1960> Age: 64> Sex: Male> Dictated by: Dr. Rosette Contreras Date of Service: 05/18/2024 Referring Physician(s) : Dr. 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 Chief Complaint / History of Present Illness: Patient is a 64-year-old gentleman who his recounts how he started having problems about 6 to 7 weeks ago. She first noticed that he kept clearing his throat. This then progressed to a raspy cough after which she began to have easily choking with eating. He had lost approximately 30 pounds when she finally talked him into coming into the doctor. He initially was evaluated mid April and was found to have a supraglottic larynx mass that started in the piriform sinus on the right extended to the left piriform sinus and up the posterior wall involving the prevertebral space. He has had a biopsy which showed it was a grade 2 squamous cell carcinoma. The tumor was p16 negative. His PET scan is currently pending. He has had a trach placed and a PEG tube placed. It was initially felt that he would not be able to tolerate any treatment at all and he was placed in rehab for approximately 3 weeks. During that time he has gained a little weight and his performance status improved. He is seen at this time to discuss the possibility of combined modality therapy or radiation alone based on the PET scan. At the time of his biopsy and extensive exam was done which showed that the mass centered in the right piriform sinus extended along the posterior wall to the left piriform sinus and up the posterior wall involving the prevertebral space. Clinically this stage would be a T4 N0 based on current scans. Current Medications: Last Reconciled 05/18/24 by Kali Bearden acetaminophen 650 mg (2 x 325 mg) peg-tube Q4H PRN 30 days fluoxetine 20 mg peg-tube DAILY 30 days folic acid 1 mg peg-tube DAILY 30 days food supplemt, lactose-reduced ea PO DAILY hydrocodone-acetaminophen 5-325 mg 1 tab PO Q6H PRN 7 days ipratropium-albuterol 0.5 mg-3 mg(2.5 mg base)/3 mL 3 mL inhalation Q4H PRN 30 days magnesium L-lactate ER (Magtab) 84 mg PO DAILY 30 days multivitamin with folic acid 400 mcg (Thera) 1 tab PO DAILY 30 days olanzapine 5 mg peg-tube BEDTIME 30 days sod phos di, mono-K phos mono 250 mg (Phospha Neutral) 1 tab peg-tube DAILY thiamine mononitrate (vit B1) (Vitamin B-1 (mononitrate)) 100 mg peg-tube DAILY 30 day Allergies: Penicillins Allergy (Verified 05/18/24 13:16) ADR-Gastrointestinal Upset Medical History: Medical History (Updated 05/17/24 @ 00:01 by MINISTERIO Almaraz) History of gastrostomy tube placement Throat mass Alcoholism which she actually had to go through withdrawal during his hospitalization. Surgical History: History of tracheostomy Family History: Social History: Smoking and tobacco/nicotine status: former use of tobacco/nicotine (quit 2023) Quit status (tobacco/nicotine): has quit using Year quit Current Complaints / Review of Systems: . Vital Signs: Physical Exam: General: Patient is quite cachectic ill-appearing and unkept. His trach is in place. He is accompanied by his . HEENT: Normocephalic atraumatic. Pupils are equal, sclera clear, extraocular muscles intact. His neck is supple without palpable adenopathy. Trach is in place and does not appear to have any skin issues as yet. Examination of the oral cavity reveals his tongue to be coated with a white layer of thrush. He has 1 or 2 molars on each side. He has 3-4 teeth that are all broken off along the anterior mandible. Pulmonary: Respiratory rate is regular and nonlabored Cardiovascular: Regular rate and rhythm Abdomen: Patient is quite thin with no adipose tissue. He currently weighs about 100 pounds. Extremities: No edema or lymphedema is noted in the upper or lower extremities Neurological: Alert and orient x 3. Gait intact. 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 We talked about the simulation process. We reviewed the daily treatment regiment. We discussed the risks and side effects both acute and long-term. We also reviewed how we really need to have 1 additional x-ray done which Dr. Jones is already ordered. Will see if we can get him on the schedule for next week for a PET scan. At this point he has regained a little bit of his overall performance status. He is unfortunately around 100 pounds which makes it difficult to really do any treatment. We talked about using the radiation plus or minus any weekly chemotherapy to try and shrink the mass down and provide him with some relief of symptoms. I would at this point keep his treatments very focused on the primary lesion plus or minus whether any lymph nodes are positive on the PET scan. Will need to take extra care to exclude the mandible and what few teeth he has from any of the treatment edwards. At this point he and his have agreed to proceed with treatment. Will wait for the PET scan and then proceed with simulation at that point. Tentative plan would be to proceed with 6-7 weeks of treatment if Dr. Llamas feels he is a candidate for combined modality therapy. If radiation alone a shorter course could be considered with perhaps 5 to 6 weeks. Signed by: 05/18/2024 2:38:37 PM <<Signature on File>> Time spent with patient: 45 CPT Code: CPT Code:
--- NOTE | 2024-05-25 11:00 | PETR_ITS ---
PROCEDURE INFORMATION: Exam: PET/CT Skull Base to Mid-thigh Exam date and time: 05/25/2024 12:46 PM Age: 64 years old Clinical indication: Condition or disease; Primary cancer: Malignant neoplasm of supraglottis; Initial oncological staging assessment; Prior surgery; Surgery date: 6+ months; Surgery type: --tracheostomy; Additional info: Supraglottis cancer LABS AND CLINICAL REPORTS: Glucose: 99 mg/dl Treatment strategy for malignancy (PET staging): Initial Staging (PI) TECHNIQUE: Imaging protocol: Following at least four-hour fasting and following the injection of radiopharmaceutical, low dose CT images were obtained. Then, PET images were obtained. Attenuation corrected images were constructed using the CT scan. Fused images of PET and CT were reviewed. The standardized uptake values (SUV) reported below are maximum values within a region of interest, expressed in gm/ml. Exam includes orbital meatal line to mid-thigh. Radiopharmaceutical: 10.01 mCi F-18 FDG (Fluorodeoxyglucose), IV. Time of imaging post radiopharmaceutical administration: 1 hour Injection site: Right antecubital COMPARISON: CT angio chest PE protcl [id number] 05/09/2024 3:10 PM, MRI brain 04/24/2024, CT chest, abdomen and pelvis 03/03/2024, CT cervical spine and CT facial bones 06/10/2015 FINDINGS: Tubes, catheters and devices: Uptake along the patient's tracheostomy tube and along the course of the percutaneous gastrostomy tube is noted, likely artifactual or inflammatory. Brain: Visualized brain has normal physiologic uptake. Salivary glands: Uptake in the right submandibular gland region is described under pharynx below. Uptake in the left submandibular gland demonstrates an SUV max 6.2. No definite left submandibular gland mass. Pharynx: Elevated uptake within asymmetric prominence of soft tissue density is noted extending from along the posteroinferior oropharynx on the right medial to and possibly involving the right submandibular gland, into the prevertebral soft tissues slightly superior to the level of the hyoid bone, extending inferiorly to the region of the larynx, terminating superior to the cricoid cartilage. This region of abnormal soft tissue density measures up to 4.5 x 2.8 cm in the axial plane on CT series 202, image 271, and elevated uptake throughout this region demonstrates an SUV max 21.9 on image 282. Larynx: See Pharynx finding. Thyroid: A low-density right thyroid nodule measuring [address] series 202, image 256 is radiotracer avid, SUV max 3.2. Lungs, pleura and trachea: An ovoid soft tissue density nodule in the right paraesophageal space on series 202, image 201 measures 1.7 x 1.1 cm in the medial right lower lobe, SUV max 14.5. This is new compared with the prior CTA chest of 05/09/2024. Mild uptake within a region of mild streaky density in the posterior lateral aspect of the right middle lobe is noted without a discrete mass or nodule, SUV max 3.6, likely inflammatory. Heart: Normal physiologic uptake. Mediastinal space: No abnormal uptake. Esophagus: There are multifocal regions of uptake along the course of the esophagus, for example in the subcarinal region, SUV max 4.0 on image 230, mid esophagus inferior to the misha, SUV max 4.2 on image 218, and near the gastroesophageal junction on image 189, SUV max 3.3. Assessment of the wall of the esophagus is limited by incomplete distension. Liver: No abnormal uptake. Gallbladder and biliary ducts: No abnormal uptake. Pancreas: No abnormal uptake. Spleen: No abnormal uptake. Adrenal glands: No abnormal uptake. Kidneys and ureters: Normal physiologic uptake. Stomach and bowel: No abnormal uptake. Vasculature: No abnormal uptake. Lymph nodes: There are small radiotracer avid bilateral level 2 cervical lymph nodes, SUV max 3.8 on the right measuring 0.[address] series 202, image 274, SUV max 3.5 measuring 6 mm on image 281. A radiotracer avid lymph node deep to the left sternocleidomastoid muscle on the left measures 1.0 x 0.4 cm on image 284 of series 202, SUV max 4.4. Radiotracer avid mediastinal and bilateral hilar lymph nodes are present, several of which are partially calcified. Examples: Right hilar region measuring 8 mm on series 202 image 220, SUV max 5.7; lateral left aortopulmonary window measuring 1.5 x 0.7 cm on image 223, SUV max 4.9; in the precarinal space measuring 9 mm on image 227, SUV max 5.0. Left hilar uptake demonstrates an SUV max 4.3 on image 214. Skeleton: No abnormal uptake. Degenerative changes of the spine are noted. Soft tissues: No abnormal uptake in the visualized head, neck, chest, abdomen, pelvis, and extremities. PET/PET skull to thigh INIT [id number] IMPRESSION: 1. A radiotracer avid mass centered in the pharynx with possible involvement of the medial right submandibular gland is noted, consistent with the history of malignancy. 2. Radiotracer avid bilateral cervical, hilar and mediastinal lymph nodes are noted, concerning for metastases. 3. A new medial right lower lobe/right periesophageal nodules noted compared with 05/09/2024. Although this may represent interval development of an infectious infiltrate given the short interval between the current and prior examination, given the degree of uptake, findings are concerning for a metastasis. 4. Small foci of uptake along the course of the esophagus are noted which may be physiologic or related to inflammatory/esophagitis. A malignant etiology is less likely but cannot be entirely excluded. 5. A right thyroid nodule is radiotracer avid. This uptake may be related to benign or malignant etiologies. Consider thyroid ultrasound for further assessment. 6. Additional nonurgent findings as detailed above.
== END 2024-05-31 23:59 | disposition home or self-care (01) ==
LOC: RAD 11:09 → ONCMED 11:10
PROVIDERS: Visit Provider Internal Medicine Medical Oncology
DX: C32.1 Malignant neoplasm of supraglottis (principal); Z93.0 Tracheostomy status; E04.1 Nontoxic single thyroid nodule; R91.1 Solitary pulmonary nodule
CPT/HCPCS: 78815; A9552

== ENCOUNTER 2024-05-30 04:39 | Emergency (ER) | payer OTHER, SELFPAY ==
[2024-05-30 04:48] VITALS: BP 133/100; PULSE 101; RESP 22; TEMP 36.7; O2SAT 100; BMI 18.1
[2024-05-30 05:21] VITALS: BP 118/100; PULSE 105; RESP 22; O2SAT 100
--- NOTE | 2024-05-30 05:36 | CTR_ITS ---
PROCEDURE INFORMATION: Exam: CT Abdomen And Pelvis With Contrast Exam date and time: 05/30/2024 5:50 AM Age: 64 years old Clinical indication: Nausea; Prior surgery; Surgery date: 3-7 days post-operative; Surgery type: Peg placement and trach placed less than 1 month ago; Additional info: Abd pain, nausea. HX of peg tube placement TECHNIQUE: Imaging protocol: Computed tomography of the abdomen and pelvis with contrast. Radiation optimization: All CT scans at this facility use at least one of these dose optimization techniques: automated exposure control; mA and/or kV adjustment per patient size (includes targeted exams where dose is matched to clinical indication); or iterative reconstruction. Contrast material: OMNI 350; Contrast volume: 100 ml; Contrast route: INTRAVENOUS (IV); COMPARISON: PT PET skull to thigh INIT [id number] 05/25/2024 12:46 PM RADIATION DOSE METRICS: Total DLP (mGy-cm): 291.65 FINDINGS: Tubes, catheters and devices: There is a PEG tube with its tip within the distal stomach/proximal duodenal. Lungs: Lung bases are clear as visualized. Diaphragm: There is a small hiatal hernia Liver: There is diffuse fatty infiltration of the liver. The liver is otherwise normal. Gallbladder and biliary ducts: There are gallstones within the gallbladder. No pericholecystic inflammatory changes noted. Pancreas: Normal. No ductal dilation. Spleen: Normal. No splenomegaly. Adrenal glands: Normal. No mass. Kidneys and ureters: Normal. No hydronephrosis. Stomach and bowel: Peg tube is within the distal stomach/proximal duodenal. Potentially the PEG tube bulb could be causing intermittent partial gastric outlet obstruction. Please note that the stomach is not particularly distended at this time. Recommend clinical correlation. No dilated loops of large or small bowel is appreciated. No bowel wall thickening is noted. Appendix: The appendix is not definitely identified. Intraperitoneal space: Unremarkable. No free air. No significant fluid collection. Vasculature: The aorta is normal in caliber. There is calcified plaque involving the aorta and its branch vessels. Lymph nodes: Unremarkable. No enlarged lymph nodes. Urinary bladder: Unremarkable as visualized. Reproductive: Unremarkable as visualized. Bones/joints: Unremarkable. No acute fracture. Soft tissues: Unremarkable. CT/CT abdomen pelvis w con* [id number] IMPRESSION: 1. Cholelithiasis. 2. Mild fatty infiltration of the liver. 3. Small hiatal hernia. 4. Peg tube with its tip within the distal stomach/proximal duodenal. Please see above comments.
--- NOTE | 2024-05-30 05:49 | W.ED.ABDPA2 ---
HPI - Abdominal Pain General: Chief Complaint: Abdominal Pain Stated Complaint: ABD Pain Time Seen by Provider: 05/30/24 05:09 History of Present Illness: 64-year-old male with a history of subglottic cancer, he is status post tracheostomy and PEG tube placement and of April. He presents with abdominal pain and nausea. He states that he feels like he needs to vomit but cannot obviously. He denies blood in the stool. No diarrhea. There is a history of low-grade temperature treated with Tylenol. He has not had other belly surgeries besides the PEG tube placement. Related Data Home Medications Medication Instructions Recorded Confirmed food supplemt, lactose-reduced ea PO DAILY 05/18/24 05/18/24 sodium di- and 1 tab peg-tube DAILY 05/18/24 monophosphate-potassium phos monobasic 250 mg tablet (Phospha Neutral) Previous Rx's Medication Instructions Recorded hydrocodone 5 mg-acetaminophen 325 1 tab PO Q6H PRN pain 7 days #28 04/27/24 mg tablet tabs fluconazole 100 mg tablet 100 mg PO DAILY thrush #14 tabs 05/18/24 (Diflucan) ondansetron HCl 4 mg/5 mL oral 4 mg (5 mL) PO Q4H PRN nausea and 05/30/24 solution vomiting #50 mL Allergies Allergy/AdvReac Type Severity Reaction Status Date / Time Penicillins Allergy ADR-Gastrointestinal Verified 05/18/24 13:16 Upset [facility] PFSH: Medical History (Updated 05/30/24 @ 07:38 by Joaquin Davila DO) MRSA infection Primary cancer of supraglottis Throat mass Surgical History (Updated 05/18/24 @ 16:37 by Derick Llamas MD) S/P percutaneous endoscopic gastrostomy (PEG) tube placement History of tracheostomy Social History (Updated 05/18/24 @ 16:40 by Derick Llamas MD) Smoking and tobacco/nicotine status: former use of tobacco/nicotine (quit 2023) Quit status (tobacco/nicotine): has quit using Year quit tobacco: 2023 Former quit date comment: total tobacco use 50 years Second hand smoke exposure: Yes Alcohol intake: former Year of sobriety/quit date alcohol: 2023 Former alcohol use details: He has had heavy alcohol use since age 18. He just recently quit drinking. Physical Exam Const: GENERAL APPEARANCE: cooperative; not ill appearing ORIENTATION/CONSCIOUSNESS: Yes awake HENMT: COMMON NORMALS: normocephalic HEAD & SCALP: normocephalic NOSE: Normal nares present Eye: COMMON NORMALS: Equal, round and reactive pupils present and EOMs intact bilaterally PUPIL: Yes Equal, round and reactive pupils present Resp: COMMON NORMALS: normal respiratory effort OTHER: trach in place. copious mucous secretions with breaths. Cardio: COMMON NORMALS: regular rate and regular rhythm RATE: regular rate RHYTHM: regular rhythm GI: OTHER: PEG tube in place. no drainage. minimal tenderness. Course Vital Signs: Vital signs: Vital Signs Temperature 98.1 F 05/30/24 04:48 Pulse Rate 88 05/30/24 07:57 Respiratory Rate 22 H 05/30/24 05:21 Blood Pressure 141/82 05/30/24 07:57 Pulse Oximetry 99 05/30/24 07:57 Oxygen Delivery Me thod Room Air 05/30/24 07:00 MDM - Abdominal Pain Medical Decision Making Pain seems somewhat epigastric. PEG tube looks normal, with no abdominal wall cellulitis or drainage. His heart rate is mildly elevated. His temperature is normal here. With his complicated history, we will try GI cocktail through the PEG tube, IV fluid, CT scan. The patient had significant improvement with GI cocktail. He is no longer nauseated. No tenderness. Peg tube flushed appropriately. CT scan shows peg tube balloon with its tip in the distal stomach slash proximal duodenum, and there is suggestion of potential intermittent obstruction, which could explain his symptoms. He was encouraged to follow up with his surgeon regarding this. He has prescribed liquid Zofran, which he may use through the tube for intermittent nausea. He knows to return for return of his symptoms. Lab Data 05/30/24 05:20 05/30/24 05:20 Labs/Radiology: Radiology Impressions Abdomen/Pelvis CT 05/30/24 05:36 IMPRESSION: 1. Cholelithiasis. 2. Mild fatty infiltration of the liver. 3. Small hiatal hernia. 4. Peg tube with its tip within the distal stomach/proximal duodenal. Please see above comments. Laboratory Results WBC 10.74 10^3/uL (3.29-11.43) 05/30/24 05:20 RBC 3.85 10^6/uL (3.85-5.65) 05/30/24 05:20 Hgb 13.10 g/dL (11.27-16.99) 05/30/24 05:20 Hct 38.3 % (37-53) 05/30/24 05:20 MCV 99.5 fl (82-101) 05/30/24 05:20 MCH 34.0 pg (27-33) H 05/30/24 05:20 MCHC 34.2 g/dL (30-55) 05/30/24 05:20 RDW 12.2 % (12.1-15.1) 05/30/24 05:20 Plt Count 320 10^3/cmm (157-399) 05/30/24 05:20 MPV 10.2 fL (7.4-10.4) 05/30/24 05:20 Neut % (Auto) 74.4 % 05/30/24 05:20 Lymph % (Auto) 13.9 % 05/30/24 05:20 [place] % (Auto) 10.4 % 05/30/24 05:20 Eos % (Auto) 0.4 % 05/30/24 05:20 Baso % (Auto) 0.3 % 05/30/24 05:20 Neut # (Auto) 8.00 10^3/uL (1.8-7.7) H 05/30/24 05:20 Lymph # (Auto) 1.5 10^3/uL (0.8-4.8) 05/30/24 05:20 [place] # (Auto) 1.1 10^3/uL (0.2-0.9) H 05/30/24 05:20 Eos # (Auto) 0.0 10^3/uL (0.0-0.8) 05/30/24 05:20 Baso # (Auto) 0.0 10^3/uL (0.0-0.1) 05/30/24 05:20 Nucleated RBC % (auto) 0 % 05/30/24 05:20 Nucleated RBCs # 0.0 /100WBC 05/30/24 05:20 Sodium 134 mmol/L (136-145) L 05/30/24 05:20 Potassium 3.8 mmol/L (3.5-5.1) 05/30/24 05:20 Chloride 99 mmol/L (98-107) 05/30/24 05:20 Carbon Dioxide 22 mmol/L (22-29) 05/30/24 05:20 Anion Gap 16.8 (5-19) 05/30/24 05:20 BUN 17 mg/dL (8-23) 05/30/24 05:20 Creatinine 0.6 mg/dL (0.7-1.2) L 05/30/24 05:20 GFR Calculation 135.6 mL/min (90-130) H 05/30/24 05:20 Glucose 105 mg/dL (65-115) 05/30/24 05:20 Calculated Osmolality 280 mOsm/kg (285-295) L 05/30/24 05:20 Lactic Acid 2.2 mmol/L (0.5-2.2) 05/30/24 05:20 Calcium 10.3 mg/dL (8.5-10.5) 05/30/24 05:20 Total Bilirubin 0.7 mg/dL (0.15-1.2) 05/30/24 05:20 AST 19 U/L (0-40) 05/30/24 05:20 ALT 13 U/L (0-41) 05/30/24 05:20 Alkaline Phosphatase 93 U/L (40-130) 05/30/24 05:20 C-Reactive Protein 10.3 mg/L (0.0-4.9) H 05/30/24 05:20 Total Protein 8.4 g/dL (6.6-8.7) 05/30/24 05:20 Albumin 3.8 g/dL (3.5-5.2) 05/30/24 05:20 Globulin 4.6 g/dL (1.3-4.6) 05/30/24 05:20 Lipase 28 U/L (13-60) 05/30/24 05:20 Urine Color Yellow (Yellow) 05/30/24 07:40 Urine Appearance Clear (CLEAR) 05/30/24 07:40 Urine pH 6.5 (5-7) 05/30/24 07:40 Ur Specific [place] 1.066 (1.005-1.030) H 05/30/24 07:40 Urine Protein Trace (Negative) A 05/30/24 07:40 Urine Glucose (UA) Negative (Normal) 05/30/24 07:40 Urine Ketones Trace (Negative) 05/30/24 07:40 Urine Blood Negative (Negative) 05/30/24 07:40 Urine Nitrate Negative (Negative) 05/30/24 07:40 Urine Bilirubin Negative (Negative) 05/30/24 07:40 Urine Urobilinogen 1.0 mg/dL (Negative) 05/30/24 07:40 Ur Leukocyte Esterase Negative (Negative) 05/30/24 07:40 Urine RBC 0-2 /hpf (0-2) 05/30/24 07:40 Urine WBC 0-5 /hpf (0-5) 05/30/24 07:40 Ur Squamous Epith Cells 0-5 /hpf (0-5) 05/30/24 07:40 Amorphous Sediment Not Reportable 05/30/24 07:40 Urine Bacteria None seen /hpf (NONE) 05/30/24 07:40 Hyaline Casts 4.95 /lpf 05/30/24 07:40 All radiology interpretation(s) finalized by discharge Discharge Plan Discharge Patient Disposition: Home Clinical Impression: Pain around PEG tube site Qualifiers: Encounter type: initial encounter Qualified Code(s): T85.848A - Pain due to other internal prosthetic devices, implants and grafts, initial encounter Condition: Stable Prescriptions: New ondansetron HCl 4 mg/5 mL solution 4 mg PO Q4H PRN (Reason: nausea and vomiting) Qty: 50 0RF Rx Instructions: 1st dose 1-2 hr before radiation No Action Phospha 250 Neutral 250 mg tablet 1 tab peg-tube DAILY Patient Comments: Bryant-Phos food supplemt, lactose-reduced Liquid PO DAILY Patient Comments: Jevity fluconazole [Diflucan] 100 mg tablet 100 mg PO DAILY Qty: 14 3RF hydrocodone-acetaminophen 5-325 mg tablet 1 tab PO Q6H PRN (Reason: pain) 7 Days Qty: 28 0RF Discharge Orders: Discharge ED (Routine); Ordered 05/30/24 Ordered By: Joaquin Davila Patient Instructions: Opioid Safety, Pain Management Coding Level of Care Code ED Shuttle Final Inspector for Daniel Rubi
[2024-05-30] MEDS: iohexol 350 mg/mL 500 mL Btl (per mL) IV (05:56)
[2024-05-30 06:00] LABS: Basophils % 0.3 %; Eosinophils % 0.4 %; Hematocrit 38.3 % (37-53); Lymphocytes # 1.5 10^3/uL (0.8-4.8); Lymphocytes % 13.9 %; Mean Corpuscular HGB Conc 34.2 g/dL (30-55); Mean Corpuscular Volume 99.5 fl (82-101); Mean Platelet Volume 10.2 fL (7.4-10.4); Monocytes # 1.1 10^3/uL (0.2-0.9); Monocytes % 10.4 %; Neutrophils % 74.4 %; Nucleated Red Blood Cells % 0 %; Platelet Count 320 10^3/cmm (157-399); Red Blood Count 3.85 10^6/uL (3.85-5.65); Red Cell Distribution Width 12.2 % (12.1-15.1); White Blood Count 10.74 10^3/uL (3.29-11.43)
[2024-05-30] MEDS: lidocaine 2% viscous 15 ML, aluminum-mag hydrox-simethicon 30 ML, sucralfate oral liq 1 GM PO (06:13)
[2024-05-30 06:17] LABS: Lactic Sepsis W/Reflex 2.2 mmol/L (0.5-2.2)
[2024-05-30 06:18] LABS: Alanine Aminotransferase 13 U/L (0-41); Albumin Level 3.8 g/dL (3.5-5.2); Alkaline Phosphatase 93 U/L (40-130); Anion Gap 16.8 (5-19); Aspartate Amino Transferase 19 U/L (0-40); Blood Urea Nitrogen 17 mg/dL (8-23); C Reactive Protein 10.3 mg/L (0.0-4.9); Calcium 10.3 mg/dL (8.5-10.5); Carbon Dioxide 22 mmol/L (22-29); Chloride 99 mmol/L (98-107); Creatinine Clr Calc Pharmacy 81.7932; Globulin 4.6 g/dL (1.3-4.6); Glomerular Filtration Rate 135.6 mL/min (90-130); Glucose 105 mg/dL (65-115); Lipase 28 U/L (13-60); Osmolality Calculated 280 mOsm/kg (285-295); Potassium 3.8 mmol/L (3.5-5.1); Sodium 134 mmol/L (136-145); Total Bilirubin 0.7 mg/dL (0.15-1.2); Total Protein 8.4 g/dL (6.6-8.7)
[2024-05-30] MEDS: sodium chloride 0.9% 1,000 ML 999 ML IV (06:18)
[2024-05-30 07:00] VITALS: BP 125/75; PULSE 88; O2SAT 99
[2024-05-30 07:44] LABS: Reflex Lactate Order REFLEX LACTIC ORDERD
[2024-05-30 07:51] LABS: Bilirubin Urine Negative (Negative); Blood Urine Negative (Negative); Glucose Urine UA Negative (Normal); Ketones Urine Trace (Negative); Leukocyte Esterase Urine Negative (Negative); Nitrate Urine Negative (Negative); Protein Urine Trace (Negative); Urine Appearance Clear (CLEAR); Urine Color Yellow (Yellow); pH Urine 6.5 (5-7)
[2024-05-30 07:56] LABS: Add Urine Microscopic? YES; Bacteria Urine None Seen /hpf; Hyaline Casts Urine 4.95 /lpf; RBC Urine 0-2 /hpf (0-2); Squamous Epithelial Cell Urine 0-5 /hpf (0-5); WBC Urine 0-5 /hpf (0-5)
[2024-05-30 07:57] VITALS: BP 141/82; PULSE 88; O2SAT 99
[2024-05-30 08:13] LABS: Specific Gravity, Urine 1.066 (1.005-1.030)
== END 2024-05-30 08:00 | disposition home or self-care (01) ==
PROVIDERS: Emergency Provider Emergency Medicine
DX: T85.848A Pain due to other internal prosthetic devices, implants and grafts, initial encounter (principal); Z87.891 Personal history of nicotine dependence
CPT/HCPCS: 74177; 80053; 81001; 83605; 83690; 85025; 86140; 99285; J7030

== ENCOUNTER 2024-06-25 08:49 | Oncology outpatient (recurring) (ONCR) | payer OTHER, SELFPAY ==
--- NOTE | 2024-06-09 14:14 | ONCRAD EPV_ITS ---
Radiation Oncology Established Patient Visit Patient: Ricardo Suazo [id number] : 1960> Age: 64> Sex: Male> Dictated by: Dr. 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 Vital Signs: Performed on 06/09/2024 1:27 PM BMI - 17.714 kg/m2 (low), Height - 63 in, Weight - 100.0 lbs, Temperature - 97.1 f, Pulse - 86 /min, Respiration - 16 /min, O2 Sat - 100 %, Pain - 0, Fatigue - 0 and BP - 110/ 68 mm(hg). Physical Exam: General: Alert and oriented x 3. No acute distress. HEENT: Normocephalic, atraumatic. Extraocular Movements Intact: Pupils Equal, Round, Reactive to Light. LUNGS: Respiratory rate is regular nonlabored. HEART: Regular rate and rhythm, . ABDOMEN: Patient is quite cachectic. He is dropped down to under 100 pounds with his close on. . Performance Status: 60 Lab: None pending. 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 Bearden. We talked about how the findings had shown that the mass in the posterior pharyngeal wall also appeared to involve at least 2 lymph nodes just adjacent to it at a level 2. It also had shown that there was activity in lymph nodes in the mediastinum and bilateral hilar areas. Some of these lymph nodes were calcified but some were not. There was also a number of areas along the esophagus which were thought to be physiologic as well as a new right lower lobe right paraesophageal nodule that had not been present in May. It was felt that this might be from an infectious infiltrate or could be metastatic disease. We talked about his current clinical situation and how he is under 100 pounds. Previously he had not been a candidate for any chemotherapy secondary to his overall health. Since last time we saw him he has lost additional weight. He is seeing Dr. Palomino tomorrow to find out if there is anything additional they can do to help increase his weight. He apparently is getting a can every 4 hours. He has unfortunately had problems with nausea which is limited this intake. He continues to have pain in the area of the primary mass. We talked today about doing radiation on this area to try and get his symptoms under control. Perhaps during the course of that treatment if we keep a very limited we can decrease his pain and maybe get his overall health elevated and help him gain a few pounds. If he does have some improvement we may be able to better determine and evaluate the disease in the mediastinum and hilar areas. This is a rather unusual distribution for metastatic disease for head neck malignancy. He verbalized understanding of this and he is agreed to proceed he will undergo simulation today and will begin his treatment shortly thereafter Signed by: 06/09/2024 2:12:36 PM <<Signature on File>> Time spent with patient: 20 CPT Code: CPT Code:
--- NOTE | 2024-06-15 14:17 | ONCRAD TMN_ITS ---
Radiation Oncology Weekly Treatment Management Patient: Ricardo Suazo MR#: [id number] : 1960 Attending Physician: Dr. Rosette Contreras Date of Service: 06/15/2024 Fractions: 1 out of 25 Referring Physician(s) : Diagnosis: C32.1 - Malignant neoplasm of supraglottis, Diagnosed 06/09/2024 (Active) Radiotherapy to date: Course: supraglottic, Treatment Site: Supraglottic 62.50Gy, Ref. ID: PTV, Energy: 6X, Dose/Fx (cGy): 250, #Fx: , Dose Correction (cGy): 0, Total Dose Delivered (cGy): 250, Start Date: 06/15/2024, Elapsed Days: 0 Reason for visit: The patient is being seen today as part of their regularly scheduled weekly on treatment visits to assess for acute toxicities from radiotherapy. Review of Systems: Patient had no additional questions today after his first treatment. Vital Signs: Performed on 06/15/2024 1:52 PM BMI - 18.139 kg/m2 (low), Height - 63 in, Weight - 102.4 lbs, Temperature - 96.3 f, Pulse - 88 /min, Respiration - 16 /min, O2 Sat - 97 %, Pain - 0, Fatigue - 0 and BP - 115/ 73 mm(hg). Physical Exam: No changes on exam. Trach is in place. Imaging: Radiation therapy imaging related to accurate target localization (i.e. KV, MV and CBCT) was reviewed. Appropriate changes, if any, were made to ensure treatment accuracy. Plan: Will continue with his palliative treatment. Signed by: Dr. Rosette Contreras 06/15/2024 2:16:03 PM
--- NOTE | 2024-06-22 13:03 | ONCRAD TMN_ITS ---
Radiation Oncology Weekly Treatment Management Patient: Ricardo Suazo MR#: [id number] : 1960 Attending Physician: Dr. Ji Guzmán Date of Service: 06/22/2024 Referring Physician(s) : Diagnosis: C32.1 - Malignant neoplasm of supraglottis, Diagnosed 06/09/2024 (Active) Radiotherapy to date: Course: supraglottic, Treatment Site: Supraglottic 62.50Gy, Ref. ID: PTV, Energy: 6X, Dose/Fx (cGy): 250, #Fx: 6 / 25, Dose Correction (cGy): 0, Total Dose Delivered (cGy): 1,500, Start Date: 06/15/2024, Elapsed Days: 7 Reason for visit: The patient is being seen today as part of their regularly scheduled weekly on treatment visits to assess for acute toxicities from radiotherapy. Review of Systems: Barely swallowing. All food via PEG . 4 cans of Nestlie???s supplement a day (375 maynor per can according to ). No throat pain. Some diarrhea rx Imodium. Sleeping a lot. Not smoking. Vital Signs: Performed on 06/22/2024 11:03 AM BMI - 17.608 kg/m2 (low), Height - 63 in, Weight - 99.4 lbs, Temperature - 97.0 f, Pulse - 82 /min, Respiration - 16 /min, O2 Sat - 96 %, Pain - 0, Fatigue - 0 and BP - 100/ 62 mm(hg)(/low). Physical Exam: laryngeal skin lymphedema and erythema. Imaging: Radiation therapy imaging related to accurate target localization (i.e. KV, MV and CBCT) was reviewed. Appropriate changes, if any, were made to ensure treatment accuracy. Plan: Good tolerance of RT. He has ongoing weight loss. Recommended a trial of increased supplements 1 ??? , 1, 1, and 1 ??? cans a day. Will also have a dietary consult requested. Add Aquaphor to neck region. Signed by: Dr. Ji Guzmán 06/22/2024 1:01:42 PM
== END 2024-06-25 23:59 | disposition home or self-care (01) ==
PROVIDERS: Visit Provider Radiology Radiation Oncology
DX: C32.1 Malignant neoplasm of supraglottis (principal); Z51.0 Encounter for antineoplastic radiation therapy
CPT/HCPCS: 77300; 77301; 77334; 77336; 77338; 77386

== ENCOUNTER 2024-06-25 22:09 | Emergency (ER) | payer OTHER, SELFPAY ==
[2024-06-25 22:12] VITALS: BP 119/75; PULSE 106; RESP 18; TEMP 36.9; O2SAT 98
--- NOTE | 2024-06-25 22:33 | ED_ITS ---
HPI - General Adult 2 General: Chief complaint: General Medical Stated complaint: Bleeding from trach tube Time Seen by Provider: 06/25/24 22:13 History of Present Illness: Patient presents to the ER with complaints of bloody mucus coming out of his trach. This all started about 8 PM tonight and has persisted since. Patient has happened once before. They thought the tumor may be bleeding. Patient does have a tumor in his neck and is undergoing radiation. Patient's undergone 8 radiation therapy so far with the last one being this morning. Patient sees Dr. Batres. Patient has a diagnosis of malignant neoplasm of the supraglottis. Trach was placed in April due to swallowing difficulties. Patient is on no anticoagulation. Related Data Home Medications Medication Instructions Recorded Confirmed food supplemt, lactose-reduced ea PO DAILY 05/18/24 06/10/24 sodium di- and 1 tab peg-tube DAILY 05/18/24 06/10/24 monophosphate-potassium phos monobasic 250 mg tablet (Phospha Neutral) Previous Rx's Medication Instructions Recorded hydrocodone 5 mg-acetaminophen 325 1 tab PO Q6H PRN pain 7 days #28 04/27/24 mg tablet tabs fluconazole 100 mg tablet 100 mg PO DAILY thrush #14 tabs 05/18/24 (Diflucan) ondansetron HCl 4 mg/5 mL oral 4 mg (5 mL) PO Q4H PRN nausea and 05/30/24 solution vomiting #50 mL lorazepam 1 mg tablet 0.5 - 1 mg (0.5 - 1 x 1 mg) PO Q6H 06/04/24 PRN severe nausea #30 tabs prochlorperazine maleate 10 mg 10 mg PO Q4H PRN mild nausea #30 06/04/24 tablet (Compazine) tabs pantoprazole 40 mg tablet,delayed 40 mg PO BID 6 weeks #84 tabs 06/10/24 release (Protonix) Allergies Allergy/AdvReac Type Severity Reaction Status Date / Time codeine Allergy ADR-Gastrointestinal Verified 06/25/24 22:22 Upset Penicillins Allergy ADR-Gastrointestinal Verified 06/25/24 22:21 Upset Review of Systems 2 General: Reports: 10 or more systems reviewed and unremarkable except in HPI and below PFSH ED 2 PFSH: Medical History 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 He just recently quit drinking. Physical Exam 2 Const: COMMON NORMALS: no acute distress, average body habitus, patient oriented x3, no limitations, healthy appearing, alert and well nourished HENMT: COMMON NORMALS: normocephalic, atraumatic, hearing grossly normal bilaterally, external ears normal, Normal external nose present and moist oral mucous membranes HEAD & SCALP: normocephalic and atraumatic NOSE: Normal external nose present EXTERNAL EAR: Yes external ears normal Neck/C-Spine: COMMON NORMALS: no JVD OTHER: Tracheostomy in place with bloody mucus discharge noted Chest: COMMONS NORMALS: normal inspection of the chest and normal palpation of entire chest wall Resp: COMMON NORMALS: normal respiratory effort, No retractions, No use of accessory muscles and clear to auscultation bilaterally AUSCULTATION: clear to auscultation bilaterally Cardio: COMMON NORMALS: no JVD, regular rate, regular rhythm, S1 normal heart sound present, S2 normal heart sound present, No gallops present (Cardio), No clicks present (Cardio), No murmurs present (Cardio) and No rub (Cardio) R ATE: regular rate RHYTHM: regular rhythm HEART SOUNDS: S1 normal heart sound present and S2 normal heart sound present GI: COMMON NORMALS: Normal to inspection, nondistended, normoactive bowel sounds present, Soft to palpation, non-tender, No hepatosplenomegaly present and no masses PALPATION: Yes Soft to palpation and Yes No hepatosplenomegaly present Neuro: COMMON NORMALS: patient oriented x3 SENSORIUM/ORIENTATION: Yes alert Course 2 Vital Signs: Vital signs: Vital Signs Temperature 98.4 F 06/25/24 22:12 Pulse Rate 106 H 06/25/24 22:12 Respiratory Rate 18 06/25/24 22:12 Blood Pressure 119/75 06/25/24 22:12 Pulse Oximetry 98 06/25/24 22:12 Oxygen Delivery Me thod Room Air 06/25/24 22:12 MDM - General Adult Medical Decision Making Lab work was obtained, and reviewed, RT was down to suction the trach but he said his a lot of thick mucinous secretions and blood-tinged secretions but no ruy blood. Patient's breathing much better and not bleeding after the red and cleaning it. Patient will be discharged home. Medical Records I reviewed the patient's medical records. Lab Data I reviewed the patient's lab results. 06/25/24 23:00 06/25/24 23:00 Laboratory Results WBC 11.88 10^3/uL (3.29-11.43) H 06/25/24 23:00 RBC 3.16 10^6/uL (3.85-5.65) L 06/25/24 23:00 Hgb 10.20 g/dL (11.27-16.99) L 06/25/24 23:00 Hct 31.3 % (37-53) L 06/25/24 23:00 MCV 99.1 fl (82-101) 06/25/24 23:00 MCH 32.3 pg (27-33) 06/25/24 23:00 MCHC 32.6 g/dL (30-55) 06/25/24 23:00 RDW 12.3 % (12.1-15.1) 06/25/24 23:00 Plt Count 358 10^3/cmm (157-399) 06/25/24 23:00 MPV 10.3 fL (7.4-10.4) 06/25/24 23:00 Neut % (Auto) 73.3 % 06/25/24 23:00 Lymph % (Auto) 11.4 % 06/25/24 23:00 [place] % (Auto) 13.8 % 06/25/24 23:00 Eos % (Auto) 0.9 % 06/25/24 23:00 Baso % (Auto) 0.3 % 06/25/24 23:00 Neut # (Auto) 8.71 10^3/uL (1.8-7.7) H 06/25/24 23:00 Lymph # (Auto) 1.4 10^3/uL (0.8-4.8) 06/25/24 23:00 [place] # (Auto) 1.6 10^3/uL (0.2-0.9) H 06/25/24 23:00 Eos # (Auto) 0.1 10^3/uL (0.0-0.8) 06/25/24 23:00 Baso # (Auto) 0.0 10^3/uL (0.0-0.1) 06/25/24 23:00 Nucleated RBC % (auto) 0 % 06/25/24 23:00 Nucleated RBCs # 0.0 /100WBC 06/25/24 23:00 PT 13.40 SECONDS (12.1-14.9) 06/25/24 23:00 INR 0.99 (0.8-1.2) 06/25/24 23:00 Sodium 133 mmol/L (136-145) L 06/25/24 23:00 Potassium 4.4 mmol/L (3.5-5.1) 06/25/24 23:00 Chloride 97 mmol/L (98-107) L 06/25/24 23:00 Carbon Dioxide 26 mmol/L (22-29) 06/25/24 23:00 Anion Gap 14.4 (5-19) 06/25/24 23:00 BUN 19 mg/dL (8-23) 06/25/24 23:00 Creatinine 0.5 mg/dL (0.7-1.2) L 06/25/24 23:00 GFR Calculation 167.4 mL/min (90-130) H 06/25/24 23:00 Glucose 125 mg/dL (65-115) H 06/25/24 23:00 Calculated Osmolality 280 mOsm/kg (285-295) L 06/25/24 23:00 Calcium 9.6 mg/dL (8.5-10.5) 06/25/24 23:00 Total Bilirubin 0.2 mg/dL (0.15-1.2) 06/25/24 23:00 AST 15 U/L (0-40) 06/25/24 23:00 ALT 10 U/L (0-41) 06/25/24 23:00 Alkaline Phosphatase 96 U/L (40-130) 06/25/24 23:00 Total Protein 7.5 g/dL (6.6-8.7) 06/25/24 23:00 Albumin 3.3 g/dL (3.5-5.2) L 06/25/24 23:00 Globulin 4.2 g/dL (1.3-4.6) 06/25/24 23:00 All radiology interpretation(s) finalized by discharge Discharge Plan Discharge Patient Disposition: Home Clinical Impression: Tracheostomy in place Condition: Stable Prescriptions: No Action pantoprazole [Protonix] 40 mg tablet,delayed release (DR/EC) 40 mg PO BID 42 Days Qty: 84 1RF Phospha 250 Neutral 250 mg tablet 1 tab peg-tube DAILY Patient Comments: Bryant-Phos food supplemt, lactose-reduced Liquid PO DAILY Patient Comments: Jevity fluconazole [Diflucan] 100 mg tablet 100 mg PO DAILY Qty: 14 3RF prochlorperazine maleate [Compazine] 10 mg tablet 10 mg PO Q4H PRN (Reason: mild nausea) Qty: 30 3RF lorazepam 1 mg tablet 0.5 - 1 mg PO Q6H PRN (Reason: severe nausea) Qty: 30 3RF hydrocodone-acetaminophen 5-325 mg tablet 1 tab PO Q6H PRN (Reason: pain) 7 Days Qty: 28 0RF ondansetron HCl 4 mg/5 mL solution 4 mg PO Q4H PRN (Reason: nausea and vomiting) Qty: 50 0RF Rx Instructions: 1st dose 1-2 hr before radiation Discharge Orders: Discharge ED (Routine); Ordered 06/25/24 Ordered By: Jm Aguilar Patient Instructions: Tracheostomy Care (ED) Activity Restrictions/Additional Instructions: Thank you for choosing [facility] for your healthcare needs today. Please realize that you were seen in the emergency department and that we are providing you with an emergency medical screening exam and this may not be a complete and all exclusive of all testing and/or medical workup we may need to determine your element or severity of your illness. It is very important that you follow-up as instructed with your primary care provider or specialist for the additional evaluation and to discuss your medical treatment plan. You may return to the emergency department should you have concerns or if your condition changes or worsens in any way. Coding Level of Care Code ED Sound Controller for Daniel Rubi
[2024-06-25 23:07] LABS: Basophils % 0.3 %; Eosinophils # 0.1 10^3/uL (0.0-0.8); Eosinophils % 0.9 %; Hematocrit 31.3 % (37-53); Lymphocytes # 1.4 10^3/uL (0.8-4.8); Lymphocytes % 11.4 %; Mean Corpuscular HGB Conc 32.6 g/dL (30-55); Mean Corpuscular Hemoglobin 32.3 pg (27-33); Mean Corpuscular Volume 99.1 fl (82-101); Mean Platelet Volume 10.3 fL (7.4-10.4); Monocytes # 1.6 10^3/uL (0.2-0.9); Monocytes % 13.8 %; Neutrophils # 8.71 10^3/uL (1.8-7.7); Neutrophils % 73.3 %; Nucleated Red Blood Cells % 0 %; Platelet Count 358 10^3/cmm (157-399); Red Blood Count 3.16 10^6/uL (3.85-5.65); Red Cell Distribution Width 12.3 % (12.1-15.1); White Blood Count 11.88 10^3/uL (3.29-11.43)
[2024-06-25 23:19] LABS: INR 0.99 (0.8-1.2)
[2024-06-25 23:25] LABS: Alanine Aminotransferase 10 U/L (0-41); Albumin Level 3.3 g/dL (3.5-5.2); Alkaline Phosphatase 96 U/L (40-130); Anion Gap 14.4 (5-19); Aspartate Amino Transferase 15 U/L (0-40); Blood Urea Nitrogen 19 mg/dL (8-23); Calcium 9.6 mg/dL (8.5-10.5); Carbon Dioxide 26 mmol/L (22-29); Chloride 97 mmol/L (98-107); Creatinine Clr Calc Pharmacy 95.7579; Globulin 4.2 g/dL (1.3-4.6); Glomerular Filtration Rate 167.4 mL/min (90-130); Glucose 125 mg/dL (65-115); Osmolality Calculated 280 mOsm/kg (285-295); Potassium 4.4 mmol/L (3.5-5.1); Sodium 133 mmol/L (136-145); Total Bilirubin 0.2 mg/dL (0.15-1.2); Total Protein 7.5 g/dL (6.6-8.7)
[2024-06-25 23:55] VITALS: BP 113/75; PULSE 97; RESP 17; O2SAT 96
== END 2024-06-26 00:09 | disposition home or self-care (01) ==
PROVIDERS: Emergency Provider Emergency Medicine
DX: Z43.0 Encounter for attention to tracheostomy (principal); C32.1 Malignant neoplasm of supraglottis; Z92.3 Personal history of irradiation
CPT/HCPCS: 80053; 85025; 85610; 94799; 99283

== ENCOUNTER 2024-07-01 10:22 | Oncology outpatient (recurring) (ONCR) | payer OTHER, SELFPAY ==
--- NOTE | 2024-06-29 12:10 | ONCRAD TMN_ITS ---
Radiation Oncology Weekly Treatment Management Patient: Burgess Zepeda MR#: [id number] : 1960> Attending Physician: Dr. 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 ID: PTV, Energy: 6X, Dose/Fx (cGy): 250, #Fx: , Dose Correction (cGy): 0, Total Dose Delivered (cGy): 2,750, Start Date: 06/15/2024, Elapsed Days: 14 Reason for visit: The patient is being seen today as part of their regularly scheduled weekly on treatment visits to assess for acute toxicities from radiotherapy. Review of Systems: Tolerating increased tube feedings to 1 ???, 1, 1, 1 ??? per day. Rarely has any abdominal pain. No N or V. Ongoing intermittent diarrhea with tube feedings treated with Imodium. Not able to swallow or gargle. Not smoking. Vital Signs: Performed on 06/29/2024 11:13 AM BMI - 17.75 kg/m2 (low), Height - 63 in, Weight - 100.2 lbs, Temperature - 96.8 f, Pulse - 110 /min (high), Respiration - 18 /min, O2 Sat - 98 %, Pain - 0, Fatigue - 0 and BP - 103/ 74 mm(hg). Physical Exam: Erythema and lymphedema over laryngeal skin. Oral cavity clear. Central mandibular incisors decayed and fractured. Imaging: Radiation therapy imaging related to accurate target localization (i.e. KV, MV and CBCT) was reviewed. Appropriate changes, if any, were made to ensure treatment accuracy. Plan: Good tolerance of treatment. Will continue as planned with increased tube feedings as tolerated. Consider tooth extractions after treatment completed. Signed by: Dr. Ji Guzmán 06/29/2024 12:08:55 PM
== END 2024-07-01 23:59 | disposition home or self-care (01) ==
PROVIDERS: Visit Provider Radiology Radiation Oncology
DX: C32.1 Malignant neoplasm of supraglottis (principal); Z51.0 Encounter for antineoplastic radiation therapy; Z53.9 Procedure and treatment not carried out, unspecified reason; Z93.0 Tracheostomy status; E04.1 Nontoxic single thyroid nodule; R91.1 Solitary pulmonary nodule
CPT/HCPCS: 77336; 77386

== ENCOUNTER 2024-07-12 09:48 | Outpatient (RCR) | payer OTHER, SELFPAY | END 2024-07-31 23:59 | disposition home or self-care (01) | LOC: SST 09:48 | PROVIDERS: Visit Provider Internal Medicine | DX: Z93.0 Tracheostomy status (principal) | CPT/HCPCS: 92523 ==

== ENCOUNTER 2024-07-14 10:25 | Day surgery (SDC) | payer OTHER, SELFPAY ==
[2024-07-14 11:28] VITALS: BP 106/76; PULSE 104; RESP 16; TEMP 36.9; O2SAT 98; BMI 18.4
[2024-07-14] MEDS: sodium chloride 0.9% 1,000 ML 30 ML IV (11:46)
--- NOTE | 2024-07-14 13:33 | PM.HP ---
Providers/Chief Complaint Chief Complaint: R11.0, K52.9, K21.9 History of Present Illness Ricardo Suazo is a 64 year old male Review of Systems General: Reports: 10 or more systems reviewed and unremarkable except in HPI and below Medications/Allergies Home Medications Medication Instructions Recorded Confirmed Last Taken Type food supplemt, lactose-reduced 1 ea PO .5XDAY 05/18/24 07/12/24 07/13/24 History lorazepam 1 mg tablet 0.5 - 1 mg (0.5 - 1 x 1 mg) PO Q6H 06/04/24 07/12/24 07/12/24 Rx PRN severe nausea #30 tabs prochlorperazine maleate 10 mg 10 mg PO Q4H PRN mild nausea #30 06/04/24 07/12/24 07/13/24 Rx tablet (Compazine) tabs pantoprazole 40 mg tablet,delayed 40 mg PO BID 6 weeks #84 tabs 06/10/24 07/12/24 07/13/24 Rx release (Protonix) acetaminophen 500 mg tablet 1,000 mg PO Q6H PRN Pain 07/12/24 07/12/24 07/13/24 History vit no.133-ferrous 1 tab PO DAILY 07/12/24 07/12/24 07/13/24 History fumarate 28 mg-folic acid 800 mcg tablet () Allergies Allergy/AdvReac Type Severity Reaction Status Date / Time codeine Allergy ADR-Gastrointestinal Verified 06/25/24 22:22 Upset Penicillins Allergy ADR-Gastrointestinal Verified 06/25/24 22:21 Upset PFSH Acute PFSH: Medical History 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 He just recently quit drinking. Vitals/I&O/Wt Last Vital Signs Temp 98.5 F 07/14/24 11:28 Pulse 104 H 07/14/24 11:28 Resp 16 07/14/24 11:28 BP 106/76 07/14/24 11:28 Pulse Ox 98 07/14/24 11:28 O2 Del Method Room Air 07/14/24 11:28 Weight last 48 hrs Weight 104 lb A&P Assessment and plan (1) GERD (gastroesophageal reflux disease): (2) Chronic diarrhea: (3) History of gastrostomy tube placement: Plan EGD Colonoscopy with random biopsies Attestations Medical Necessity Statement*: Home Coding Level of Care Code Acute Code for Chg Fwd Diagnoses GERD (gastroesophageal reflux disease) K21.9 Chronic diarrhea K52.9 History of gastrostomy tube placement
--- NOTE | 2024-07-14 13:41 | ANES.PREANE2 ---
Pre-Anesthetic Assessment Height/Weight: Height 1.6 m Weight 47.174 kg Temp Pulse Resp BP Pulse Ox O2 Del Method 98.5 F 104 H 16 106/76 98 Room Air 07/14/24 11:28 07/14/24 11:28 07/14/24 11:28 07/14/24 11:28 07/14/24 11:28 07/14/24 11:28 Preop Diagnosis: abdominal pain, GERD, Gastric tube Operation Date: 07/14/24 12:30 Proposed Procedures p Colonoscopy 69173, G0105, 99019, R11.0, K52.9, K21.9(Not Applicable) - Silver Palomino DO s EGD(Not Applicable) - Silver Palomino DO Familial anesthetic complications: none Was Beta Liz taken within 24 hours: N/A Was Clonidine taken within 24 hours: N/A Last intake: Intake Last Liquid Date 07/13/24 Last Liquid Time 16:00 Social No alcohol and No tobacco Exam alert, oriented x 3 and clear to auscultation bilaterally Airway Mallampati: Class II Dentition: full History/ROS No significant history except as noted Pulmonary trach in april 2024 CV/HEM None reported None reported Hepatic None reported GI Gastroesophageal Reflux Disease gastric tube in place Metabolic None reported Musc/skel None reported Neuropsych None reported Anesthetic Plan ASA status: 4 Anesthesia: Anesthesia Evaluation and MAC Risk of > 500 ml blood loss (7ml/kg in children): No Medications/Allergies Home Medications Medication Instructions Recorded Confirmed Last Taken Type food supplemt, lactose-reduced 1 ea PO .5XDAY 05/18/24 07/12/24 07/13/24 History lorazepam 1 mg tablet 0.5 - 1 mg (0.5 - 1 x 1 mg) PO Q6H 06/04/24 07/12/24 07/12/24 Rx PRN severe nausea #30 tabs prochlorperazine maleate 10 mg 10 mg PO Q4H PRN mild nausea #30 06/04/24 07/12/24 07/13/24 Rx tablet (Compazine) tabs pantoprazole 40 mg tablet,delayed 40 mg PO BID 6 weeks #84 tabs 06/10/24 07/12/24 07/13/24 Rx release (Protonix) acetaminophen 500 mg tablet 1,000 mg PO Q6H PRN Pain 07/12/24 07/12/24 07/13/24 History vit no.133-ferrous 1 tab PO DAILY 07/12/24 07/12/24 07/13/24 History fumarate 28 mg-folic acid 800 mcg tablet () Allergies Allergy/AdvReac Type Severity Reaction Status Date / Time codeine Allergy ADR-Gastrointestinal Verified 06/25/24 22:22 Upset Penicillins Allergy ADR-Gastrointestinal Verified 06/25/24 22:21 Upset Current Medications Generic Name Dose Route Start Last Admin Trade Name Freq PRN Reason Stop Dose Admin Sodium Chloride 1,000 mls @ 30 mls/hr 07/14/24 11:15 07/14/24 11:46 Sodium Chloride 0.9% IV 07/15/24 11:14 30 mls/hr .Q24H [place] Administration PFSH Anesthesia Medical History 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 He just recently quit drinking. Data Anesthesia Cardiac Studies: No Data to Display
[2024-07-14 14:25] VITALS: BP 113/72; PULSE 78; RESP 18; TEMP 36.6; O2SAT 92
[2024-07-14 14:41] VITALS: BP 107/70; PULSE 70; RESP 18; O2SAT 100
--- NOTE | 2024-07-14 15:17 | ANE.PACU2 ---
Inpatient post-anesthesia follow up: Airway intact: Yes Vital signs: Temperature 98 F Pulse Rate 70 Respiratory Rate 18 Blood Pressure 107/70 Pulse Oximetry 100 Oxygen Delivery Me thod Room Air Oxygen Flow Rate Fraction of Inspir ed Oxygen Hydration adequate: Yes Nausea and vomiting: No Pain level: 1 Mental status: Baseline
[2024-07-14 18:10] LABS: C.Diff PCR (Lab) NEGATIVE (Negative)
== END 2024-07-14 15:17 | disposition home or self-care (01) ==
PROVIDERS: Visit Provider Surgery
PROC: 0DJD8ZZ Inspection of Lower Intestinal Tract, Via Natural or Artificial Opening Endoscopic (ICD-10-PCS; CPT 45378; principal; 2024-07-14 12:30)
PROC: 0DJ08ZZ Inspection of Upper Intestinal Tract, Via Natural or Artificial Opening Endoscopic (ICD-10-PCS; CPT 43235; 2024-07-14 12:30)
DX: K52.9 Noninfective gastroenteritis and colitis, unspecified (principal); K64.8 Other hemorrhoids; K21.9 Gastro-esophageal reflux disease without esophagitis; Z86.14 Personal history of Methicillin resistant Staphylococcus aureus infection; Z87.891 Personal history of nicotine dependence; Z85.21 Personal history of malignant neoplasm of larynx
CPT/HCPCS: 45380; 82274; 83630; 87045; 87177; 87209; 87427; 87449; 87493; 88305; J2704; J7030

== ENCOUNTER 2024-07-20 10:08 | Oncology outpatient (recurring) (ONCR) | payer OTHER, SELFPAY ==
--- NOTE | 2024-07-07 13:04 | ONCRAD TMN_ITS ---
Radiation Oncology Weekly Treatment Management Patient: Ricardo Suazo MR#: [id number] : 1960 Attending Physician: Dr. 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 ID: PTV, Energy: 6X, Dose/Fx (cGy): 250, #Fx: 16 / 25, Dose Correction (cGy): 0, Total Dose Delivered (cGy): 4,000, Start Date: 06/15/2024, Elapsed Days: 22 Reason for visit: The patient is being seen today as part of their regularly scheduled weekly on treatment visits to assess for acute toxicities from radiotherapy. Review of Systems: He is tolerating 1 ??? - 1 ??? 1 ??? 1 ??? cans or bottles of Ensure a day which is well tolerated. Swallow some and also spits out his saliva. No throat or swallowing problems. Sleeping ok and taking naps. Activity level is stable, Vital Signs: Performed on 07/07/2024 10:25 AM BMI - 18.565 kg/m2, Height - 63 in, Weight - 104.8 lbs, Temperature - 97.9 f, Pulse - 90 /min, Respiration - 16 /min, O2 Sat - 99 %, Pain - 0, Fatigue - 5 and BP - 95/ 65 mm(hg). Physical Exam: Mild erythema with improved lymphedema over laryngeal skin. Imaging: Radiation therapy imaging related to accurate target localization (i.e. KV, MV and CBCT) was reviewed. Appropriate changes, if any, were made to ensure treatment accuracy. Plan: Good tolerance of treatment. Continue as planned. Signed by: Dr. Ji Guzmán 07/07/2024 1:03:00 PM
--- NOTE | 2024-07-13 11:18 | ONCRAD TMN_ITS ---
Radiation Oncology Weekly Treatment Management Patient: Ricardo Suazo MR#: [id number] : 1960 Attending Physician: Dr. 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 ID: PTV, Energy: 6X, Dose/Fx (cGy): 250, #Fx: 20 / 25, Dose Correction (cGy): 0, Total Dose Delivered (cGy): 5,000, Start Date: 06/15/2024, Elapsed Days: 28 Reason for visit: The patient is being seen today as part of their regularly scheduled weekly on treatment visits to assess for acute toxicities from radiotherapy. Review of Systems: Patient has had issues with nausea and vomiting and abdominal pain along with diarrhea over the past few weeks. He is scheduled to undergo an EGD and colonoscopy tomorrow. He has been able to gain a pound a week and is up now to 103 pounds. Vital Signs: Performed on 07/13/2024 10:37 AM BMI - 18.635 kg/m2, Height - 63 in, Weight - 105.2 lbs, Temperature - 97.7 f, Pulse - 81 /min, Respiration - 16 /min, O2 Sat - 100 %, Pain - 0, Fatigue - 0 and BP - 105/ 65 mm(hg). Physical Exam: Skin is hyperpigmented and dry Imaging: Radiation therapy imaging related to accurate target localization (i.e. KV, MV and CBCT) was reviewed. Appropriate changes, if any, were made to ensure treatment accuracy. Plan: Will continue with his treatments. We only have 1 week remaining. He will have a scope done tomorrow and hopefully they will be able to ascertain why he is having diarrhea and nausea. Signed by: Dr. Rosette Contreras 07/13/2024 11:17:14 AM
--- NOTE | 2024-07-20 11:18 | N.ONRD TS_ITS ---
Radiation Oncology OTV / Treatment Summary Patient: Ricardo Suazo MR#: [id number] : 1960 Age: 64 Sex: Male Dictated by: Dr. 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 ID: PTV, Energy: 6X, Dose/Fx (cGy): 250, #Fx: 25 / 25, Dose Correction (cGy): 0, Total Dose Delivered (cGy): 6,250, Start Date: 06/15/2024, End Date: 07/20/2024, Elapsed Days: 35 Clinical Summary: The patient tolerated RT well. He actually gained weight during the course of his treatment by using his PEG tube. His skin has some mild hyperpigmentation. His pain improved. He had an EGD and colonoscopy the week before finishing his treatment which showed only hemorrhoids on the colonoscopy but unfortunately the endoscopy could not be passed by the mass in the head neck region. At this point we will get him scheduled to return in a month and order a PET scan for 12 weeks. Plan: End of treatment today. Continue on the above medication until the skin reaction resolves. Follow up in one month. Signed by: Dr. Rosette Contreras>07/20/2024 11:17:45 AM <<Signature on File>>
== END 2024-07-31 23:59 | disposition home or self-care (01) ==
PROVIDERS: Visit Provider Radiology Radiation Oncology
DX: C32.1 Malignant neoplasm of supraglottis (principal); Z51.0 Encounter for antineoplastic radiation therapy; Z53.9 Procedure and treatment not carried out, unspecified reason; Z93.0 Tracheostomy status; E04.1 Nontoxic single thyroid nodule; R91.1 Solitary pulmonary nodule
CPT/HCPCS: 77336; 77386; 99024

== ENCOUNTER 2024-09-16 09:20 | Outpatient (CLI) | payer OTHER, SELFPAY ==
--- NOTE | 2024-09-16 09:23 | CT_ITS ---
WS: [id number] CT NECK TECHNIQUE: Contrast-enhanced CT of the neck with coronal and sagittal reformatted images. CLINICAL INFORMATION: MALIGNANT NEOPLASM OF OVERLAPPING SITE OF LARYNX COMPARISON: PET/CT 05/25/2024 and MRI 04/09/2024. DLP: 132.[address] scans at [facility] use at least one of these dose optimization techniques: automated e xposure control; mA and/or kV adjustment per patient size (includes targeted exams where dose is matc hed to clinical indication); or iterative reconstruction. FINDINGS: History of supraglottic neoplasm with interval treatment. Tracheostomy. Diffuse induration in the neck soft tissues with submucosal enhancement and circumferen tial edema throughout the oropharynx hypopharynx and supraglottic larynx extending to the glottis com patible with treatment related changes. Thickening of the epiglottis due to treatment-related changes . Normal parapharyngeal fat. Posterior nasopharynx is normal. Diffuse induration in the submandibular spaces and platysma compatible with treatment related changes. Parotid glands are normal. Normal par apharyngeal fat. No focal enhancing mass or lesion. Diffuse soft tissue edema with submucosal enhance ment involving the posterior pharyngeal wall and supraglottic airway in the area of previously descri bed neoplasm. Findings compatible with interval response to therapy. 2 stable RIGHT thyroid nodules measuring 5 to 6 mm upper lungs are well aerated. Mild spondylitic shahnaz nges cervical spine. No new cervical lymphadenopathy. Mild compression of the super endplate of T2. CT/CT neck w con* [id number] IMPRESSION: 1. Since the prior examinations, interval treatment of the previously describe d supraglottic neoplasm centered at the level of the piriform sinuses involving the posterior pharyngeal wall. Diffuse treatment-related changes involving the supraglottic and glottic larynx today. No focal enhancing mass or lesion. 2. Effacement of the supraglottic larynx due to diffuse circumferential edema and treatment-related changes above the tracheostomy. 3. Findings compatible with interval response to therapy. 4. No new cervical lymphadenopathy. 5. Stable 5 mm RIGHT thyroid nodule. 6. Tracheostomy.
[2024-09-16] MEDS: iohexol 350 mg/mL 500 mL Btl (per mL) IV (09:55)
== END 2024-09-16 09:21 | disposition home or self-care (01) ==
LOC: RAD 09:21
PROVIDERS: Visit Provider Specialist
DX: C32.8 Malignant neoplasm of overlapping sites of larynx (principal); D38.0 Neoplasm of uncertain behavior of larynx; Z98.890 Other specified postprocedural states; M47.892 Other spondylosis, cervical region; E04.2 Nontoxic multinodular goiter; R93.89 Abnormal findings on diagnostic imaging of other specified body structures
CPT/HCPCS: 70491

== ENCOUNTER 2024-09-22 02:28 | Emergency (ER) | payer OTHER, SELFPAY ==
[2024-09-22 02:38] VITALS: BP 115/85; PULSE 85; RESP 18; TEMP 36.6; O2SAT 98
--- NOTE | 2024-09-22 03:03 | W.ED.SKABFB ---
HPI - Skin/Abscess/Foreign Bdy General: Chief complaint: Skin/Abscess/Foreign Body Stated complaint: Feeding Tube Came Out Time Seen by Provider: 09/22/24 03:02 History of Present Illness: 64-year-old man with history of head neck cancer who has a tracheostomy and a feeding tube who presents emergency room after his feeding tube came out. Apparently it looks like the bulb has broken. Related Data Home Medications Medication Instructions Recorded Confirmed food supplemt, lactose-reduced 1 ea PO .5XDAY 05/18/24 09/13/24 acetaminophen 500 mg tablet 1,000 mg PO Q6H PRN Pain 07/12/24 09/13/24 vit no.133-ferrous 1 tab PO DAILY 07/12/24 09/13/24 fumarate 28 mg-folic acid 800 mcg tablet () hydrocortisone 2.5 % topical cream topical 08/02/24 09/13/24 with perineal applicator Previous Rx's Medication Instructions Recorded lorazepam 1 mg tablet 0.5 - 1 mg (0.5 - 1 x 1 mg) PO Q6H 06/04/24 PRN severe nausea #30 tabs prochlorperazine maleate 10 mg 10 mg PO Q4H PRN mild nausea #30 06/04/24 tablet (Compazine) tabs pantoprazole 40 mg tablet,delayed 40 mg PO BID 6 weeks #84 tabs 06/10/24 release (Protonix) loperamide 2 mg tablet (Imodium 2 mg PO QID PRN loose stool #120 07/14/24 A-D) tabs Allergies Allergy/AdvReac Type Severity Reaction Status Date / Time codeine Allergy ADR-Gastrointestinal Verified 09/13/24 09:28 Upset Penicillins Allergy ADR-Gastrointestinal Verified 09/13/24 09:28 Upset Review of Systems Narrative: Constitutional symptoms: Negative except as documented in HPI. Skin symptoms: Negative except as documented in HPI. Eye symptoms: Negative except as documented in HPI. ENMT symptoms: Negative except as documented in HPI. Respiratory symptoms: Negative except as documented in HPI. Cardiovascular symptoms: Negative except as documented in HPI. Gastrointestinal symptoms: Negative except as documented in HPI. Genitourinary symptoms: Negative except as documented in HPI. Musculoskeletal symptoms: Negative except as documented in HPI. Neurologic symptoms: Negative except as documented in HPI. Psychiatric symptoms: Negative except as documented in HPI. Endocrine symptoms: Negative except as documented in HPI. PFS ED PFSH: Medical History 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 He just recently quit drinking. Physical Exam Narrative: EXAM NARRATIVE: General: Alert, no acute distress. Skin: warm and dry Head: Normocephalic Neck: Trachea midline Eye: Extraocular movements are intact. Ears, nose, mouth and throat: Oral mucosa moist Respiratory: Respirations are non-labored Musculoskeletal: Normal ROM Gastrointestinal: Orifice appears to be intact. Some mild bleeding Neurological: Alert and oriented, No focal neurological deficit observed. Psychiatric: Cooperative, appropriate mood & affect. Course Vital Signs: Vital signs: Vital Signs Temperature 97.8 F 09/22/24 02:38 Pulse Rate 85 09/22/24 02:38 Respiratory Rate 18 09/22/24 02:38 Blood Pressure 115/85 09/22/24 02:38 Pulse Oximetry 98 09/22/24 02:38 Oxygen Delivery Me thod Room Air 09/22/24 02:38 MDM - Skin/Abscess/Foreign Bdy Medicial Decision Making Patient had an 18 [place]ian. This has been replaced with a 20 [place]ian. This is all yet available. Was still a bit difficult to place but ultimately was placed. X-ray of the abdomen shows Gastrografin in the stomach. Assessment and plan: Gastrostomy tube malfunction - Discharged home - Discussed findings and plan with patient. Answered any questions. - All laboratory values were reviewed and interpreted personally by myself, the ER physician - All imaging was reviewed and interpreted personally by myself, the ER physician. - Evaluation and treatment of this problem were appropriate in the emergency setting All radiology interpretation(s) finalized by discharge Discharge Plan Discharge Patient Disposition: Home Clinical Impression: Malfunction of gastrostomy tube Condition: Stable Prescriptions: No Action pantoprazole [Protonix] 40 mg tablet,delayed release (DR/EC) 40 mg PO BID 42 Days Qty: 84 1RF food supplemt, lactose-reduced Liquid 1 ea PO .5XDAY Patient Comments: Jevity hydrocortisone 2.5 % cream with perineal applicator topical prochlorperazine maleate [Compazine] 10 mg tablet 10 mg PO Q4H PRN (Reason: mild nausea) Qty: 30 3RF lorazepam 1 mg tablet 0.5 - 1 mg PO Q6H PRN (Reason: severe nausea) Qty: 30 3RF acetaminophen 500 mg Tablet 1,000 mg PO Q6H PRN (Reason: Pain) 28-800 mg-mcg Tablet 1 tab PO DAILY loperamide [Imodium A-D] 2 mg tablet 2 mg PO QID PRN (Reason: loose stool) Qty: 120 11RF Discharge Orders: Discharge ED (Routine); Ordered 09/22/24 Ordered By: Yashira Riley Referrals: Silver Palomino DO [Physician] - 4-7 days (Please call for follow-up appointment with Dr. Palomino in the next few days.) Discharge Diet: Usual diet Discharge Activity: Increase activity as tolerated Patient Instructions: Opioid Safety, Pain Management Activity Restrictions/Additional Instructions: Thank you for choosing [facility] for your healthcare needs today. Please realize this is an emergency room and that we are providing you with a medical screening exam and this may not be complete and all inclusive of all the testing and or work up that you may need to determine your ailment or severity of your illness. You have been screened and evaluated and felt safe for discharge. Health conditions do change or evolve sometimes and as such it is important that you follow up with your Primary Doctor to be re checked, 3-5 days is a general good time frame for follow up. You are always welcome to return to the ED for re assessment if your symptoms are worsening or you have new concerns Coding Level of Care Code ED Photographic Machine Operator for Daniel Rubi
--- NOTE | 2024-09-22 03:06 | XRR_ITS ---
PROCEDURE INFORMATION: Exam: XR Abdomen Exam date and time: 09/22/2024 3:12 AM Age: 64 years old Clinical indication: Device placement; Gi device; Peg tube TECHNIQUE: Imaging protocol: Radiologic exam of the abdomen. Views: 2 Views. Upright and supine views. COMPARISON: CT abdomen pelvis w con* [id number] 05/30/2024 5:50 AM FINDINGS: Gastrointestinal tract: Normal. No bowel dilation. Post injection image demonstrates contrast within the gastric cardia. Intraperitoneal space: Normal. No free air. Bones/joints: Unremarkable for age. XR/XR abdomen min 2V [id number] IMPRESSION: Gastrostomy tube within the stomach.
[2024-09-22 03:26] VITALS: BP 120/73; PULSE 81; RESP 16; O2SAT 100
[2024-09-22] MEDS: acetaminophen 650 mg/20.3 mL UDC PEG-TUBE (03:30)
[2024-09-22] MEDS: diatrizoate meglumine 120 mL Sol XX (03:40)
== END 2024-09-22 03:42 | disposition home or self-care (01) ==
PROVIDERS: Emergency Provider Emergency Medicine
DX: K94.23 Gastrostomy malfunction (principal); Z87.891 Personal history of nicotine dependence; C32.1 Malignant neoplasm of supraglottis
CPT/HCPCS: 74019; 99283

== ENCOUNTER 2024-09-24 00:36 | Emergency (ER) | payer OTHER, SELFPAY ==
[2024-09-24 00:41] VITALS: BP 143/84; PULSE 89; RESP 16; TEMP 36.8; O2SAT 99
[2024-09-24] MEDS: HYDROcodone-acetaminophen 10-325 mg Tablet 1 TAB PO (01:09)
[2024-09-24] MEDS: HYDROmorphone 1 mg/mL INJ 1 mL 0.5 MG IM (01:14)
--- NOTE | 2024-09-24 01:43 | ED_ITS ---
HPI - General Adult General: Chief complaint: General Medical Stated complaint: Feeding tube Failed Time Seen by Provider: 09/24/24 00:41 History of Present Illness: 64-year-old man w ith history of hea d neck cancer who has a tracheostomy and a feeding tub e who presents [facility] after his feeding tube c wilson out. Apparent ly it looks like t he bulb has broken again. Related Data Home Medications Medication Instructions Recorded Confirmed food supplemt, lactose-reduced 1 ea PO .5XDAY 05/18/24 09/13/24 acetaminophen 500 mg tablet 1,000 mg PO Q6H PRN Pain 07/12/24 09/13/24 vit no.133-ferrous 1 tab PO DAILY 07/12/24 09/13/24 fumarate 28 mg-folic acid 800 mcg tablet () hydrocortisone 2.5 % topical cream topical 08/02/24 09/13/24 with perineal applicator Previous Rx's Medication Instructions Recorded lorazepam 1 mg tablet 0.5 - 1 mg (0.5 - 1 x 1 mg) PO Q6H 06/04/24 PRN severe nausea #30 tabs prochlorperazine maleate 10 mg 10 mg PO Q4H PRN mild nausea #30 06/04/24 tablet (Compazine) tabs pantoprazole 40 mg tablet,delayed 40 mg PO BID 6 weeks #84 tabs 06/10/24 release (Protonix) loperamide 2 mg tablet (Imodium 2 mg PO QID PRN loose stool #120 07/14/24 A-D) tabs Allergies Allergy/AdvReac Type Severity Reaction Status Date / Time codeine Allergy ADR-Gastrointestinal Verified 09/24/24 00:46 Upset Penicillins Allergy ADR-Gastrointestinal Verified 09/24/24 00:46 Upset Review of Systems Narrative: Constitutional symptoms: Negative except as documented in HPI. Skin symptoms: Negative except as documented in HPI. Eye symptoms: Negative except as documented in HPI. ENMT symptoms: Negative except as documented in HPI. Respiratory symptoms: Negative except as documented in HPI. Cardiovascular symptoms: Negative except as documented in HPI. Gastrointestinal symptoms: Negative except as documented in HPI. Genitourinary symptoms: Negative except as documented in HPI. Musculoskeletal symptoms: Negative except as documented in HPI. Neurologic symptoms: Negative except as documented in HPI. Psychiatric symptoms: Negative except as documented in HPI. Endocrine symptoms: Negative except as documented in HPI. PFSH ED PFSH: Medical History 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 He just recently quit drinking. Physical Exam Narrative: EXAM NARRATIVE: General: Alert, no acute distress. Skin: warm and dry Head: Normocephalic Neck: Trachea midline Eye: Extraocular movements are intact. Ears, nose, mouth and throat: Oral mucosa moist Respiratory: Respirations are non-labored Musculoskeletal: Normal ROM Gastrointestinal: Tube site appears intact. Neurological: Alert and oriented, No focal neurological deficit observed. Psychiatric: Cooperative, appropriate mood & affect. Course Vital Signs: Vital signs: Vital Signs Temperature 98.2 F 09/24/24 00:41 Pulse Rate 89 09/24/24 00:41 Respiratory Rate 16 09/24/24 00:41 Blood Pressure 143/84 09/24/24 00:41 Pulse Oximetry 99 09/24/24 00:41 Oxygen Delivery Me thod Room Air 09/24/24 00:41 MDM - General Adult Medical Decision Making Patient initially had an 18 Finnish. We had placed a 20 a couple days ago. This has been replaced again with a 20 Finnish. This is all yet available. Was still a bit difficult to place but ultimately was placed. X-ray of the abdomen shows Gastrografin in the stomach. Assessment and plan: Gastrostomy tube malfunction Tube replaced. Follow-up with surgery. All radiology interpretation(s) finalized by discharge Discharge Plan Discharge Patient Disposition: Home Clinical Impression: Gastrostomy complication Condition: Stable Prescriptions: No Action pantoprazole [Protonix] 40 mg tablet,delayed release (DR/EC) 40 mg PO BID 42 Days Qty: 84 1RF food supplemt, lactose-reduced Liquid 1 ea PO .5XDAY Patient Comments: Jevity hydrocortisone 2.5 % cream with perineal applicator topical prochlorperazine maleate [Compazine] 10 mg tablet 10 mg PO Q4H PRN (Reason: mild nausea) Qty: 30 3RF lorazepam 1 mg tablet 0.5 - 1 mg PO Q6H PRN (Reason: severe nausea) Qty: 30 3RF acetaminophen 500 mg Tablet 1,000 mg PO Q6H PRN (Reason: Pain) 28-800 mg-mcg Tablet 1 tab PO DAILY loperamide [Imodium A-D] 2 mg tablet 2 mg PO QID PRN (Reason: loose stool) Qty: 120 11RF Discharge Orders: Discharge ED (Routine); Ordered 09/24/24 Ordered By: Yashira Riley Discharge Diet: Usual diet Discharge Activity: Increase activity as tolerated Patient Instructions: Opioid Safety, Pain Management Activity Restrictions/Additional Instructions: Thank you for choosing [facility] for your healthcare needs today. Ple ase realize this is an emergency room and that we are providing you with a medical screening exam and this may not be complete and all inclusive of all the testing and or work up that you may need to determine your ailment or severity of your illness. You have been screened and evaluated and felt safe for discharge. Health conditions do change or evolve sometimes and as such it is important that you follow up with your Primary Doctor to be re checked, 3-5 days is a general good time frame for follow up. 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
--- NOTE | 2024-09-24 02:02 | XRR_ITS ---
PROCEDURE INFORMATION: Exam: XR Abdomen Exam date and time: 09/24/2024 2:07 AM Age: 64 years old Clinical indication: Device placement; Gi device; Prior surgery; Surgery date: 6+ months; Patient HX: Check S/P replacement of peg tube. 20cc gastrograffin administered just prior to expsoure. ; Additional info: Peg tube replaced TECHNIQUE: Imaging protocol: Radiologic exam of the abdomen. Views: Frontal supine view of the abdomen. 1 View. Other contrast: gastrograffin; COMPARISON: CR (ABDOMEN, ) 09/22/2024 3:12 AM FINDINGS: Gastrointestinal tract: Contrast is seen within the stomach. Constipation. No evidence of obstruction. Bones/joints: Unremarkable. XR/XR KUB portable [id number] IMPRESSION: Gastrostomy is present within the gastric lumen.
[2024-09-24] MEDS: diatrizoate meglumine 120 mL Sol PO (02:14)
== END 2024-09-24 02:43 | disposition home or self-care (01) ==
PROVIDERS: Emergency Provider Emergency Medicine
DX: K94.23 Gastrostomy malfunction (principal); Z87.891 Personal history of nicotine dependence; C32.1 Malignant neoplasm of supraglottis
CPT/HCPCS: 74018; 96372; 99284; J1171

== ENCOUNTER 2024-09-28 10:48 | Oncology outpatient (recurring) (ONCR) | payer OTHER, SELFPAY ==
[2024-09-13 09:58] LABS: Basophils % 0.5 %; Eosinophils # 0.1 10^3/uL (0.0-0.8); Eosinophils % 1.4 %; Hematocrit 41.8 % (37-53); Lymphocytes # 0.9 10^3/uL (0.8-4.8); Lymphocytes % 13.8 %; Mean Corpuscular Hemoglobin 31.4 pg (27-33); Mean Corpuscular Volume 95.2 fl (82-101); Mean Platelet Volume 10.5 fL (7.4-10.4); Monocytes # 1.1 10^3/uL (0.2-0.9); Monocytes % 17.2 %; Neutrophils # 4.28 10^3/uL (1.8-7.7); Neutrophils % 66.9 %; Nucleated Red Blood Cells % 0 %; Platelet Count 185 10^3/cmm (157-399); Red Blood Count 4.39 10^6/uL (3.85-5.65); Red Cell Distribution Width 13.4 % (12.1-15.1); White Blood Count 6.39 10^3/uL (3.29-11.43)
[2024-09-13 10:16] LABS: Alanine Aminotransferase 45 U/L (0-41); Alkaline Phosphatase 121 U/L (40-130); Anion Gap 15.1 (5-19); Aspartate Amino Transferase 32 U/L (0-40); Blood Urea Nitrogen 18 mg/dL (8-23); Calcium 10.2 mg/dL (8.5-10.5); Carbon Dioxide 27 mmol/L (22-29); Chloride 98 mmol/L (98-107); Creatinine Clr Calc Pharmacy 93.5764; Globulin 3.4 g/dL (1.3-4.6); Glomerular Filtration Rate 135.6 mL/min (90-130); Glucose 83 mg/dL (65-115); Osmolality Calculated 283 mOsm/kg (285-295); Potassium 4.1 mmol/L (3.5-5.1); Sodium 136 mmol/L (136-145); Total Bilirubin 0.5 mg/dL (0.15-1.2); Total Protein 7.4 g/dL (6.6-8.7)
--- NOTE | 2024-09-28 13:21 | ONCRAD EPV_ITS ---
Radiation Oncology Established Patient Visit Patient: Ricardo Suazo [id number] : 1960> Age: 64> Sex: Male> Dictated by: Dr. Rosette Contreras Date of Service: 09/28/2024 Referring Physician(s) : Diagnosis: C32.1 - Malignant neoplasm of supraglottis, Diagnosed 06/09/2024 (Active) Radiotherapy to Date: Course: supraglottic, Treatment Site: Supraglottic 62.50Gy, Ref. ID: [id number], Energy: 6X, Dose/Fx (cGy): 250, #Fx: 25 / 25, Dose Correction (cGy): 0, Total Dose Delivered (cGy): 6,250, Start Date: 06/15/2024, End Date: 07/20/2024, Elapsed Days: 35 Current History: Patient returns today 2 months after having completed radiation. He is doing fairly well. He still has some ear pain. He has developed submental lymphedema. His recent CT scan did not reveal any evidence of disease. Current Medications: Allergies: Current Complaints / Review of Systems: . Vital Signs: Performed on 09/28/2024 11:17 AM BMI - 20.903 kg/m2, Height - 63 in, Weight - 118 lbs, Temperature - 97.9 f, Pulse - 101 /min (high), Respiration - 17 /min, O2 Sat - 97 %, Pain - 0, Fatigue - 0 and BP - 109/ 72 mm(hg). Physical Exam: General: Alert and oriented x 3. No acute distress. HEENT: Trach is in place. He does have significant submental edema. He apparently has been pinching his skin in this area which is aggravated the lymphedema. Oral cavity has some mild thrush on his tongue. Performance Status: 80 Lab: None pending. Pathology: Primary, c32.1 - malignant neoplasm of supraglottis, Diagnosed 06/09/2024 (active) . Imaging: See HPI Impression: Squamous cell carcinoma of the supraglottic larynx Plan: At this point he is doing well. We talked about the manual lymphatic drainage that he can do to eliminate the lymphedema. He is going to be scheduled for another scan next month. Will follow-up with him at his next round of appointments in 6 months. I have sent a refill on his Diflucan Signed by: 09/28/2024 1:20:35 PM <<Signature on File>> Time spent with patient:20 CPT Code: CPT Code:
== END 2024-10-01 23:59 | disposition home or self-care (01) ==
PROVIDERS: Internal Medicine Medical Oncology; Visit Provider Radiology Radiation Oncology
DX: Z53.9 Procedure and treatment not carried out, unspecified reason (principal)
CPT/HCPCS: 36415; 80053; 85025

== ENCOUNTER 2024-10-06 17:41 | Emergency (ER) | payer OTHER, SELFPAY ==
[2024-10-06 17:54] VITALS: BP 161/86; PULSE 112; RESP 18; O2SAT 97; BMI 20.2
--- NOTE | 2024-10-06 18:18 | XRR_ITS ---
PROCEDURE INFORMATION: Exam: XR Chest Exam date and time: 10/06/2024 6:31 PM Age: 64 years old Clinical indication: Device placement; Tracheostomy placement or adjustment; Additional info: Trach placement TECHNIQUE: Imaging protocol: Radiologic exam of the chest. Views: 1 view. COMPARISON: CT angio chest PE protcl [id number] 05/09/2024 3:10 PM FINDINGS: Tubes, catheters and devices: Limited examination without orthogonal views. A tracheostomy tube present with tip above the misha. Lungs: Limited evaluation of the lung parenchyma without orthogonal views. Pleural spaces: Unremarkable. No pleural effusion. No pneumothorax. Heart/Mediastinum: Unremarkable. No cardiomegaly. Bones/joints: Unremarkable. XR/XR chest 1V portable [id number] IMPRESSION: Tracheostomy tube present with tip at the level of the thoracic inlet.
--- NOTE | 2024-10-06 18:19 | W.ED.GENADLT ---
HPI - General Adult General: Chief complaint: General Medical Stated complaint: trach came out Time Seen by Provider: 10/06/24 18:03 Source: patient and family Mode of arrival: wheelchair Limitations: no limitations History of Present Illness: Patient is a 64-year-old male who presents to ED today for evaluation as he accidentally dislodged his tracheostomy tube just prior to arrival. Significant other tried to replace it but was unsuccessful. Patient has a history of supraglottic laryngeal cancer. He arrives in acute distress but currently maintaining saturations. Onset (ago): minute(s) Location: neck Severity: moderate Associated symptoms: Reports no associated symptoms and dyspnea Treatments prior to arrival: none Related Data Home Medications ?Medication ?Instructions ?Recorded ?Confirmed food supplemt, lactose-reduced 1 ea PO .5XDAY 05/18/24 09/28/24 acetaminophen 500 mg tablet 1,000 mg PO Q6H PRN Pain 07/12/24 09/28/24 vit no.133-ferrous 1 tab PO DAILY 07/12/24 09/28/24 fumarate 28 mg-folic acid 800 mcg tablet () hydrocortisone 2.5 % topical cream topical 08/02/24 09/28/24 with perineal applicator Previous Rx's ?Medication ?Instructions ?Recorded lorazepam 1 mg tablet 0.5 - 1 mg (0.5 - 1 x 1 mg) PO Q6H 06/04/24 PRN severe nausea #30 tabs loperamide 2 mg tablet (Imodium 2 mg PO QID PRN loose stool #120 07/14/24 A-D) tabs fluconazole 100 mg tablet 100 mg PO DAILY thrush #14 tabs 09/28/24 (Diflucan) pantoprazole 40 mg tablet,delayed 40 mg PO BID 6 weeks #84 tabs 09/28/24 release (Protonix) prochlorperazine maleate 10 mg 10 mg PO Q4H PRN mild nausea #30 09/28/24 tablet (Compazine) tabs Allergies Allergy/AdvReac Type Severity Reaction Status Date / Time codeine Allergy ADR-Gastrointestinal Verified 10/06/24 17:57 Upset Penicillins Allergy ADR-Gastrointestinal Verified 10/06/24 17:57 Upset Review of Systems Resp: Reports: dyspnea PFSH ED PFSH: Medical History 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 He just recently quit drinking. Physical Exam Const: COMMON NORMALS: no limitations and alert GENERAL APPEARANCE: cooperative OTHER: significant respiratory retractions noted Neck/C-Spine: OTHER: trach site with secretions/scant amount of blood Resp: EFFORT & INSPECTION: Yes labored and Yes retractions Cardio: COMMON NORMALS: regular rhythm RATE: tachycardic RHYTHM: regular rhythm Neuro: SENSORIUM/ORIENTATION: Yes alert Course Vital Signs: Vital signs: Vital Signs Pulse Rate 91 10/06/24 18:29 Respiratory Rate 16 10/06/24 18:29 Blood Pressure 145/87 10/06/24 18:29 Pulse Oximetry 98 10/06/24 18:29 Oxygen Delivery Me thod Room Air 10/06/24 17:54 MDM - General Adult Medical Decision Making RT met me in room. Suction had to be set up as there was none in the room. Family did not know trach size. RT went to retrieve multiple sizes. They were not able/comfortable placing due to amount of swelling/resistance. Dr. Wood called into room and he was easily able to replace tube with a size 4. Patient with immediate relief. Ausculation normal. Will allow discharge. Medical Records I reviewed the patient's medical records. XR interpretation done by ED provider, pending radiology final review Discharge Plan Discharge Patient Disposition: Home Clinical Impression: Encounter for tracheostomy tube change Condition: Stable Prescriptions: No Action pantoprazole [Protonix] 40 mg tablet,delayed release (DR/EC) 40 mg PO BID 42 Days Qty: 84 1RF prochlorperazine maleate [Compazine] 10 mg tablet 10 mg PO Q4H PRN (Reason: mild nausea) Qty: 30 3RF food supplemt, lactose-reduced Liquid 1 ea PO .5XDAY Patient Comments: Jevity hydrocortisone 2.5 % cream with perineal applicator topical lorazepam 1 mg tablet 0.5 - 1 mg PO Q6H PRN (Reason: severe nausea) Qty: 30 3RF fluconazole [Diflucan] 100 mg tablet 100 mg PO DAILY Qty: 14 0RF acetaminophen 500 mg Tablet 1,000 mg PO Q6H PRN (Reason: Pain) 28-800 mg-mcg Tablet 1 tab PO DAILY loperamide [Imodium A-D] 2 mg tablet 2 mg PO QID PRN (Reason: loose stool) Qty: 120 11RF Discharge Orders: Discharge ED (Routine); Ordered 10/06/24 Ordered By: Mini Dominguez Referrals: Troy Rae MD [Primary Care Provider] - Patient Instructions: Tracheostomy Care (ED), Tracheotomy (DC) Print Language: Uzbek Coding Level of Care Code ED [employer] for Daniel Rubi
[2024-10-06 18:29] VITALS: BP 145/87; PULSE 91; RESP 16; O2SAT 98
[2024-10-06 19:10] VITALS: BP 118/78; PULSE 87; O2SAT 97
== END 2024-10-06 18:51 | disposition home or self-care (01) ==
PROVIDERS: Emergency Provider Physician Assistant; PCP Internal Medicine
DX: Z43.0 Encounter for attention to tracheostomy (principal); Z87.891 Personal history of nicotine dependence; C32.1 Malignant neoplasm of supraglottis
CPT/HCPCS: 71045; 99284

== ENCOUNTER 2024-10-13 18:40 | Emergency (ER) | payer OTHER, SELFPAY ==
[2024-10-13 18:52] VITALS: BP 129/77; PULSE 92; RESP 18; TEMP 37.1; O2SAT 98; BMI 20.2
--- NOTE | 2024-10-13 21:10 | PC.RESP ---
pt had a size 4 trach. Inner cannula was removed and cleaned. Innercannula was almost completely occluded with dried secretions. PT and family member were educated on importance of suctioning and trach care. Once clean, inner cannula was reinserted into the trach and pt was breathing easier. 95% on RA with RR 20.
--- NOTE | 2024-10-13 21:11 | XRR_ITS ---
PROCEDURE INFORMATION: Exam: XR Chest Exam date and time: 10/13/2024 10:06 PM Age: 64 years old Clinical indication: Shortness of breath TECHNIQUE: Imaging protocol: Radiologic exam of the chest. Views: 1 view. COMPARISON: CR (CHEST, ) 10/06/2024 6:31 PM FINDINGS: Airway: Tracheostomy. Lungs: Unremarkable. No consolidation. Pleural spaces: Unremarkable. No pleural effusion. No pneumothorax. Heart/Mediastinum: Unremarkable. No cardiomegaly. Bones/joints: Unremarkable. XR/XR chest 1V portable [id number] IMPRESSION: No acute findings.
--- NOTE | 2024-10-13 21:34 | W.ED.SOB ---
HPI - SOB/Dyspnea General: Chief Complaint: Shortness of Breath/Dyspnea Stated Complaint: Can hardly Breath has Trach Time Seen by Provider: 10/13/24 21:25 History of Present Illness: HPI Narrative: 64-year-old man with a history of head neck cancer who has a tracheostomy and a PEG tube placed who presents emergency room shortness of breath. He had come to the emergency room about a week ago with a dislodged tracheostomy and had a 4 replaced he had had an 8 previously. Since then he has been having some difficulty breathing. Apparently he refuses to let his suction him. They are concerned the size of the trach is the problem. Respiratory cleaned out his trach when he got here and it was completely clogged. Once she had cleaned it and replaced it it was better. No fevers. No new cough. No altered mental status. No abdominal pain. No vomiting. Related Data Home Medications ?Medication ?Instructions ?Recorded ?Confirmed food supplemt, lactose-reduced 1 ea PO .5XDAY 05/18/24 09/28/24 acetaminophen 500 mg tablet 1,000 mg PO Q6H PRN Pain 07/12/24 09/28/24 vit no.133-ferrous 1 tab PO DAILY 07/12/24 09/28/24 fumarate 28 mg-folic acid 800 mcg tablet () hydrocortisone 2.5 % topical cream topical 08/02/24 09/28/24 with perineal applicator Previous Rx's ?Medication ?Instructions ?Recorded lorazepam 1 mg tablet 0.5 - 1 mg (0.5 - 1 x 1 mg) PO Q6H 06/04/24 PRN severe nausea #30 tabs loperamide 2 mg tablet (Imodium 2 mg PO QID PRN loose stool #120 07/14/24 A-D) tabs fluconazole 100 mg tablet 100 mg PO DAILY thrush #14 tabs 09/28/24 (Diflucan) pantoprazole 40 mg tablet,delayed 40 mg PO BID 6 weeks #84 tabs 09/28/24 release (Protonix) prochlorperazine maleate 10 mg 10 mg PO Q4H PRN mild nausea #30 09/28/24 tablet (Compazine) tabs Allergies Allergy/AdvReac Type Severity Reaction Status Date / Time codeine Allergy ADR-Gastrointestinal Verified 10/13/24 18:57 Upset Penicillins Allergy ADR-Gastrointestinal Verified 10/13/24 18:57 Upset [facility]: Medical History 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 He just recently quit drinking. Physical Exam Narrative: EXAM NARRATIVE: General: Alert, no acute distress. Skin: Warm, dry. Head: Normocephalic, atraumatic. Neck: Supple, trachea midline. Eye: Extraocular movements are intact. Ears, nose, mouth and throat: mucosa moist. Cardiovascular: Regular, Normal peripheral perfusion. Respiratory: Lungs are clear to auscultation, respirations are non-labored, breath sounds are equal, Symmetrical chest wall expansion. Initially was slightly tachypneic but lung edwards are clear. Gastrointestinal: Soft, Nontender, Non distended Musculoskeletal: Normal ROM, no deformity. Neurological: Alert and oriented, No focal neurological deficit observed. Psychiatric: Cooperative, appropriate mood & affect. Course Vital Signs: Vital signs: Vital Signs Temperature 98.7 F 10/13/24 18:52 Pulse Rate 96 10/13/24 22:02 Respiratory Rate 18 10/13/24 22:02 Blood Pressure 129/77 10/13/24 18:52 Pulse Oximetry 96 10/13/24 22:02 Oxygen Delivery Me thod Room Air 10/13/24 22:02 MDM - SOB/Dyspnea Medical Decision Making 64-year-old man with a history of head neck cancer who has a tracheostomy and a PEG tube placed who presents emergency room shortness of breath. He had come to the emergency room about a week ago with a dislodged tracheostomy and had a 4 replaced he had had an 8 previously. Since then he has been having some difficulty breathing. Apparently he refuses to let his suction him. They are concerned the size of the trach is the problem. Respiratory cleaned out his trach when he got here and it was completely clogged. Once she had cleaned it and replaced it it was better. No fevers. No new cough. No altered mental status. No abdominal pain. No vomiting. Differential diagnosis for patient with shortness of breath includes but is not limited to and based on the above HPI, review of systems and physical exam: Pneumonia. Bronchitis. Asthma or COPD with acute exacerbation. Acute coronary syndrome / ID. Pulmonary embolism. Anxiety. Congestive heart failure. Viral infections including influenza and Covid-19. Atrial fibrillation. Anxiety. Pleural effusion. Pneumothorax. Orders placed to evaluate differential diagnosis based on the above differential, HPI and physical exam Lab Review: Laboratory results were reviewed and interpreted by myself the emergency room physician. No leukocytosis. No anemia. No renal failure. Flu COVID and RSV are negative. Chest x-ray: No acute process. No infiltrate. No pneumothorax. This was reviewed and interpreted by myself the emergency room physician. I also reviewed the radiology report. I reviewed the patient's medical record. Reexamination: Patient is much improved after cleaning out his trach. No oxygen requirement at this time. No increased work of breathing. Assessment and plan: Tracheostomy problem Dyspnea Head neck cancer ?Patient improved after tracheostomy tube cleaned. - Discharged home - Discussed plan with patient. Answered any questions. - Evaluation and treatment of this problem were appropriate in the emergency setting. Lab Data 10/13/24 21:30 10/13/24 21:30 Labs/Radiology: Radiology Impressions Chest X-Ray 10/13/24 21:11 IMPRESSION: No acute findings. Laboratory Results WBC 7.30 10^3/uL (3.29-11.43) 10/13/24 21: RBC 4.63 10^6/uL (3.85-5.65) 10/13/24 21:30 Hgb 14.50 g/dL (11.27-16.99) 10/13/24 21: Hct 44.4 % (37-53) 10/13/24 21: MCV 95.9 fl (82-101) 10/13/24 21: MCH 31.3 pg (27-33) 10/13/24 21: MCHC 32.7 g/dL (30-55) 10/13/24 21: RDW 13.2 % (12.1-15.1) 10/13/24: Plt Count 263 10^3/cmm (157-399) 10/13/24 21: MPV 10.3 fL (7.4-10.4) 10/13/24 21: Neut % (Auto) 65.4 % 10/13/24: Lymph % (Auto) 17.1 % 10/13/24: [place] % (Auto) 16.0 % 10/13/24: Eos % (Auto) 0.8 % 10/13/24: Baso % (Auto) 0.4 % 10/13/24 Neut # (Auto) 4.77 10^3/uL (1.8-7.7) 10/13/24: Lymph # (Auto) 1.3 10^3/uL (0.8-4.8) 10/13/24: [place] # (Auto) 1.2 10^3/uL (0.2-0.9) H 10/13/24: Eos # (Auto) 0.1 10^3/uL (0.0-0.8) 10/13/24: Baso # (Auto) 0.0 10^3/uL (0.0-0.1) 10/13/24: Nucleated RBC % (auto) 0 % 10/13/24: Nucleated RBCs # 0.0 /100WBC 10/13/24: Sodium 135 mmol/L (136-145) L 10/13/24: Potassium 4.5 mmol/L (3.5-5.1) 10/13/24: Chloride 95 mmol/L (98-107) L 10/13/24: Carbon Dioxide 28 mmol/L (22-29) 10/13/24: Anion Gap 16.5 (5-19) 10/13/24: BUN 19 mg/dL (8-23) 10/13/24: Creatinine 0.5 mg/dL (0.7-1.2) L 02/12/25 21:30 GFR Calculation 167.4 mL/min (90-130) H 10/13/24 21:30 Glucose 111 mg/dL (65-115) 10/13/24 21:30 Calculated Osmolality 283 mOsm/kg (285-295) L 10/13/24 21:30 Lactic Acid 1.7 mmol/L (0.5-2.2) 10/13/24 21:30 Calcium 10.5 mg/dL (8.5-10.5) 10/13/24 21:30 Total Bilirubin 0.2 mg/dL (0.15-1.2) 10/13/24 21:30 AST 14 U/L (0-40) 10/13/24 21: ALT 11 U/L (0-41) 10/13/24 21:30 Alkaline Phosphatase 130 U/L (40-130) 10/13/24 21:30 Total Protein 8.6 g/dL (6.6-8.7) 10/13/24 21: Albumin 4.2 g/dL (3.5-5.2) 10/13/24 21:30 Globulin 4.4 g/dL (1.3-4.6) 10/13/24 21:30 Coronavirus (PCR) Negative (Negative) 10/13/24 21:39 Influenza A (PCR) Negative (Negative) 10/13/24 21:39 Influenza Type B (PCR) Negative (Negative) 10/13/24 21:39 RSV (PCR) Negative (Negative) 10/13/24 21:39 All radiology interpretation(s) finalized by discharge Discharge Plan Discharge Patient Disposition: Home Clinical Impression: Tracheostomy care, Dyspnea Condition: Stable Prescriptions: No Action pantoprazole [Protonix] 40 mg tablet,delayed release (DR/EC) 40 mg PO BID 42 Days Qty: 84 1RF prochlorperazine maleate [Compazine] 10 mg tablet 10 mg PO Q4H PRN (Reason: mild nausea) Qty: 30 3RF food supplemt, lactose-reduced Liquid 1 ea PO .5XDAY Patient Comments: Jevity hydrocortisone 2.5 % cream with perineal applicator topical lorazepam 1 mg tablet 0.5 - 1 mg PO Q6H PRN (Reason: severe nausea) Qty: 30 3RF fluconazole [Diflucan] 100 mg tablet 100 mg PO DAILY Qty: 14 0RF acetaminophen 500 mg Tablet 1,000 mg PO Q6H PRN (Reason: Pain) 28-800 mg-mcg Tablet 1 tab PO DAILY loperamide [Imodium A-D] 2 mg tablet 2 mg PO QID PRN (Reason: loose stool) Qty: 120 11RF Discharge Orders: Discharge ED (Routine); Ordered 10/13/24 Ordered By: Yashira Riley Referrals: Troy Rae MD [Primary Care Provider] - Rod Batres MD [Physician] - 4-7 days (Please call for follow-up) Discharge Diet: Usual diet Discharge Activity: Increase activity as tolerated Patient Instructions: Opioid Safety, Pain Management Activity Restrictions/Additional Instructions: Thank you for choosing [facility] for your healthcare needs today. Please realize this is an emergency room and that we are providing you with a medical screening exam and this may not be complete and all inclusive of all the testing and or work up that you may need to determine your ailment or severity of your illness. You have been screened and evaluated and felt safe for discharge. Health conditions do change or evolve sometimes and as such it is important that you follow up with your Primary Doctor to be re checked, 3-5 days is a general good time frame for follow up. 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
[2024-10-13 21:45] LABS: Basophils % 0.4 %; Eosinophils # 0.1 10^3/uL (0.0-0.8); Eosinophils % 0.8 %; Hematocrit 44.4 % (37-53); Lymphocytes # 1.3 10^3/uL (0.8-4.8); Lymphocytes % 17.1 %; Mean Corpuscular HGB Conc 32.7 g/dL (30-55); Mean Corpuscular Hemoglobin 31.3 pg (27-33); Mean Corpuscular Volume 95.9 fl (82-101); Mean Platelet Volume 10.3 fL (7.4-10.4); Monocytes # 1.2 10^3/uL (0.2-0.9); Neutrophils # 4.77 10^3/uL (1.8-7.7); Neutrophils % 65.4 %; Nucleated Red Blood Cells % 0 %; Platelet Count 263 10^3/cmm (157-399); Red Blood Count 4.63 10^6/uL (3.85-5.65); Red Cell Distribution Width 13.2 % (12.1-15.1)
[2024-10-13] MEDS: dexamethasone 10 mg/mL INJ IVP (22:00)
[2024-10-13 22:01] LABS: Alanine Aminotransferase 11 U/L (0-41); Albumin Level 4.2 g/dL (3.5-5.2); Alkaline Phosphatase 130 U/L (40-130); Anion Gap 16.5 (5-19); Aspartate Amino Transferase 14 U/L (0-40); Blood Urea Nitrogen 19 mg/dL (8-23); Calcium 10.5 mg/dL (8.5-10.5); Carbon Dioxide 28 mmol/L (22-29); Chloride 95 mmol/L (98-107); Creatinine Clr Calc Pharmacy 115.7396; Globulin 4.4 g/dL (1.3-4.6); Glomerular Filtration Rate 167.4 mL/min (90-130); Glucose 111 mg/dL (65-115); Osmolality Calculated 283 mOsm/kg (285-295); Potassium 4.5 mmol/L (3.5-5.1); Sodium 135 mmol/L (136-145); Total Bilirubin 0.2 mg/dL (0.15-1.2); Total Protein 8.6 g/dL (6.6-8.7)
[2024-10-13 22:02] VITALS: PULSE 96; RESP 18; O2SAT 96
[2024-10-13 22:02] LABS: Lactic Sepsis W/Reflex 1.7 mmol/L (0.5-2.2)
[2024-10-13 22:28] LABS: Influenza A NEGATIVE (Negative); Influenza B NEGATIVE (Negative); Respiratory Syncytial Virus Ce NEGATIVE (Negative); SARS-CoV-2 PCR NEGATIVE (Negative)
[2024-10-13 23:15] VITALS: BP 124/79; PULSE 87; O2SAT 98
== END 2024-10-13 23:16 | disposition home or self-care (01) ==
PROVIDERS: Emergency Provider Emergency Medicine; PCP Internal Medicine
DX: Z93.0 Tracheostomy status (principal); R06.00 Dyspnea, unspecified; Z11.52 Encounter for screening for COVID-19; Z87.891 Personal history of nicotine dependence; C32.1 Malignant neoplasm of supraglottis
CPT/HCPCS: 36415; 71045; 80053; 83605; 85025; 87040; 87637; 96374; 99284; J1100

== ENCOUNTER 2024-11-05 12:09 | Outpatient (CLI) | payer OTHER, SELFPAY ==
--- NOTE | 2024-11-05 12:16 | PETR_ITS ---
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 Then, PET images were obtained. Attenuation corrected images were constructed using the CT scan. Fused images of PET and CT were reviewed. The standardized uptake values (SUV) reported below are maximum values within a region of interest, expressed in gm/ml. Exam includes orbital meatal line to mid-thigh. SUV normalization method: BodyWeight Radiopharmaceutical: 10.15 mCi F-18 FDG (Fluorodeoxyglucose), IV. Time of imaging post radiopharmaceutical administration: 52 minutes Injection site: right ac COMPARISON: PT PET skull to thigh INIT [id number] 05/25/2024, CT neck 09/16/2024, CTA chest 05/09/2024 FINDINGS: Tubes, catheters and devices: Percutaneous gastrostomy tube and tracheostomy tube is in place. Brain: Normal physiologic uptake. Salivary glands: No abnormal uptake. Atrophy of the right submandibular salivary gland. Pharynx: No abnormal uptake in the nasopharynx and the oropharynx. Larynx: Primary supraglottic tumor shows no metabolic response to treatment with high uptake of 19.1 SUV versus 21 SUV on the prior exam. Thyroid: There is new intensely FDG avid nodule in the upper aspect of the right thyroid lobe currently measuring 1.9 x 1.2 cm/11.7 SUV concerning for direct extension of malignancy from the posterior wall of the larynx. It is noted in place of 0.8 x 0.7 cm hypodense nodule documented on series 3, image [address] neck on 09/16/2024. Subcentimeter nodule in the inferior aspect of the right thyroid lobe noted again as sharply-circumscribed 0.7 cm nodule on series 202, image 56 with stable low-grade uptake of 3.3 SUV, previously 3.2 SUV. Lungs, pleura and trachea: No abnormal uptake. No lung nodules or masses. 1.3 cm FDG avid paramediastinal nodule in the right lower lobe present on the prior exam has resolved in keeping with benign inflammatory finding since it was not present on 05/09/2024. No pleural effusion. Heart: No abnormal uptake. There is no cardiomegaly. Coronary artery calcification is present. There is no pericardial effusion. Mediastinal space: No abnormal uptake. There is a small hiatal hernia. Liver: No abnormal uptake. Maximum uptake is 1.9 SUV. Gallbladder and biliary ducts: No abnormal uptake. Pancreas: No abnormal uptake. Spleen: No abnormal uptake. No splenomegaly. Adrenal glands: No abnormal uptake. No nodules. Kidneys and ureters: Normal physiologic uptake. No hydronephrosis. Stomach and bowel: Small focus of increased uptake of 4.1 SUV in the hepatic flexure of the colon on axial image 149 is indeterminate, may be benign. Vasculature: No abnormal uptake. No aortic aneurysm. Lymph nodes: Previously present FDG avid bilateral upper jugular lymph nodes have resolved. Abnormal uptake previously present within normal size mediastinal and bilateral hilar lymph nodes have resolved. New slightly elongated focus of increased uptake of 8.3 SUV in the left parapharyngeal space on axial image 30 is indeterminate with differential diagnosis including parapharyngeal metastatic lymph node versus intramuscular uptake. No FDG avid lymphadenopathy in the chest, abdomen, pelvis, and extremities. Skeleton: No abnormal uptake in the visualized axial and appendicular skeleton. Soft tissues: There is benign muscular uptake in the temporalis and masseter muscles. There is benign uptake in the posterior belly of the left digastric muscle. There is new diffuse benign uptake in the muscles of the abdominal wall, gluteal muscles and in the muscles of bilateral forearms more prominently on the left side. Diffuse edema of the subcutaneous fat in the submental areas and in the anterior upper neck in keeping with postradiation changes new since 05/25/2024 persists since 09/16/2024. PET/PET skull to thigh SUBS [id number] IMPRESSION: In comparison with 05/25/2024: 1. There is lack of metabolic response to treatment in primary supraglottic tumor. The tumor maintains intense activity of 19.1 SUV (previously 21 SUV). There is new nodular extension into the upper aspect of the right thyroid gland with the high uptake of 11.7 SUV concerning for focal progression. New increased uptake in the left parapharyngeal area appears slightly elongated possibly representing muscular activity along with increased uptake in other higher education administrator muscles. However, parapharyngeal lymphadenopathy cannot be entirely excluded. 2. Previously present abnormal uptake within normal size level 2 lymph nodes in the neck, and bilateral mediastinal and hilar lymph nodes has resolved. It is unclear if this represents response in metastatic disease or resolution of benign reactive changes. Previously present benign inflammatory focus in the right lower lobe has resolved. 3. Small focus of mildly increased uptake within hepatic flexure of the colon with no corresponding CT abnormality is indeterminate, may be benign.
== END 2024-11-05 12:10 | disposition home or self-care (01) ==
PROVIDERS: PCP Internal Medicine; Visit Provider Specialist
DX: C13.2 Malignant neoplasm of posterior wall of hypopharynx (principal); Z98.890 Other specified postprocedural states; Z96.89 Presence of other specified functional implants; K11.0 Atrophy of salivary gland; E04.2 Nontoxic multinodular goiter; I25.10 Atherosclerotic heart disease of native coronary artery without angina pectoris; K44.9 Diaphragmatic hernia without obstruction or gangrene; R93.3 Abnormal findings on diagnostic imaging of other parts of digestive tract; R93.89 Abnormal findings on diagnostic imaging of other specified body structures; R93.7 Abnormal findings on diagnostic imaging of other parts of musculoskeletal system
CPT/HCPCS: 78815; A9552

== ENCOUNTER 2024-11-09 11:51 | Oncology outpatient (recurring) (ONCR) | payer OTHER, SELFPAY ==
[2024-11-09 12:26] LABS: Basophils % 0.2 %; Eosinophils % 0.3 %; Hematocrit 40.1 % (37-53); Lymphocytes # 1.2 10^3/uL (0.8-4.8); Mean Corpuscular HGB Conc 32.7 g/dL (30-55); Mean Corpuscular Hemoglobin 30.9 pg (27-33); Mean Corpuscular Volume 94.6 fl (82-101); Mean Platelet Volume 10.2 fL (7.4-10.4); Monocytes # 1.6 10^3/uL (0.2-0.9); Monocytes % 15.1 %; Neutrophils # 7.39 10^3/uL (1.8-7.7); Neutrophils % 71.8 %; Nucleated Red Blood Cells % 0 %; Platelet Count 350 10^3/cmm (157-399); Red Blood Count 4.24 10^6/uL (3.85-5.65); Red Cell Distribution Width 12.9 % (12.1-15.1); White Blood Count 10.28 10^3/uL (3.29-11.43)
[2024-11-09 12:44] LABS: Alanine Aminotransferase 12 U/L (0-41); Albumin Level 3.7 g/dL (3.5-5.2); Alkaline Phosphatase 100 U/L (40-130); Anion Gap 17.2 (5-19); Aspartate Amino Transferase 11 U/L (0-40); Blood Urea Nitrogen 18 mg/dL (8-23); Calcium 9.7 mg/dL (8.5-10.5); Carbon Dioxide 26 mmol/L (22-29); Chloride 97 mmol/L (98-107); Glomerular Filtration Rate 135.6 mL/min (90-130); Glucose 96 mg/dL (65-115); Osmolality Calculated 284 mOsm/kg (285-295); Potassium 4.2 mmol/L (3.5-5.1); Sodium 136 mmol/L (136-145); Total Bilirubin 0.3 mg/dL (0.15-1.2); Total Protein 7.7 g/dL (6.6-8.7)
== END 2024-11-29 23:59 | disposition home or self-care (01) ==
LOC: ONCMED 11:51
PROVIDERS: Internal Medicine Medical Oncology; PCP Internal Medicine; Visit Provider Radiology Radiation Oncology
DX: C32.1 Malignant neoplasm of supraglottis (principal)
CPT/HCPCS: 36415; 80053; 84443; 85025